=== PATIENT | female | born 1975 | race Caucasian/White ===

== ENCOUNTER 2016-07-17 11:47 | Inpatient (IN) | payer MEDICAID, OTHER ==
[~2016-07-17] VITALS: Ht 160 cm; Wt 64.4 kg
[~2016-07-17 11:47] MED LIST: BUSP5TAB3 PO; CLOZ100 PO; CYMB30CA PO; IMOD2TAB PO
--- NOTE | 2016-07-17 12:04 | PD ---
HPI Chief Complaint: psychiatric Time Seen by Provider: 11:59 Travel History International Travel<30 days: No Contact w/Intl Traveler<30days: No Traveled to known affect area: No History of Present Illness HPI 41-year-old female was Piper acted and brought in for psychiatric evaluation. Patient was threatened overdose on medications including Tylenol. Patient states that she did not overdose on Tylenol and just a threat. Patient states that she is hearing voices that are telling her to overdose on Tylenol. Patient denies any headache. Patient denies any chest pain or shortness of breath. Patient denies abdominal pain. Patient denies any focal weakness or numbness of extremity. Patient has history of schizoaffective disorder , Bipolar disorder, GERD, irritable bowel syndrome. PFSH Past Medical History Anemia: Yes Arthritis: No Asthma: No Autoimmune Disease: No Blood Disorders: No Bipolar Disorder: Yes Anxiety: Yes Depression: Yes Heart Rhythm Problems: No High Cholesterol: No Chemotherapy: No Chest Pain: No Congestive Heart Failure: No COPD: No Cerebrovascular Accident: No Diminished Hearing: No Endocrine: No GERD: Yes Genitourinary: No Hiatal Hernia: No Immune Disorder: No Implanted Vascular Access Dvce: No Musculoskeletal: No Neurologic: No Psychiatric: Yes (Schizoaffective Disorder, Bipolar Type) Reproductive: No Respiratory: No Immunizations Current: Yes Migraines: No Radiation Therapy: No Schizophrenia: Yes Sickle Cell Disease: No Sleep Apnea: No Thyroid Disease: No Ulcer: No Menopausal: No : 0 Para: 0 Miscarriage: 0 : 0 Past Surgical History Abdominal Surgery: No AICD: No Arteriovenous Shunt: No Cardiac Surgery: No Ear Surgery: No Endocrine Surgery: No Eye Surgery: No Genitourinary Surgery: No Gynecologic Surgery: No Insulin Pump: No Joint Replacement: No Neurologic Surgery: No Oral Surgery: No Pacemaker: No Thoracic Surgery: No Social History Alcohol Use: No Tobacco Use: Yes (< 1 PPD) Substance Use: No Allergies-Medications (Allergen,Severity, Reaction): Coded Allergies: No Known Allergies (Verified , 10/27/15) Reported Meds & Prescriptions Reported Meds & Active Scripts Active Reported Buspar (Buspirone HCl) 5 Mg Tab 10 Mg PO BID Cymbalta (Duloxetine HCl) 30 Mg Cap 90 Mg PO DAILY Loperamide Hcl (Loperamide HCl) 2 Mg Cap 4 Mg PO TID PRN TAKE AFTER EACH LOOSE STOOL; MAXIMUM OF 8 CAPS/DAY Clozaril 100 Mg Tab (Clozapine) 100 Mg Tab 400 Mg PO HS Review of Systems General / Constitutional: No: Fever Eyes: No: Visual changes HENT: No: Headaches Cardiovascular: No: Chest Pain or Discomfort Respiratory: No: Shortness of Breath Gastrointestinal: No: Abdominal Pain Genitourinary: No: Dysuria Musculoskeletal: No: Pain Skin: No Rash Neurologic: No: Weakness Psychiatric: No: Depression Endocrine: No: Polydipsia Hematologic/Lymphatic: No: Easy Bruising Physical Exam Narrative GENERAL: Well-nourished, well-developed patient. SKIN: Focused skin assessment warm/dry. HEAD: Normocephalic. EYES: No scleral icterus. No injection or drainage. NECK: Supple, trachea midline. No JVD or lymphadenopathy. CARDIOVASCULAR: Regular rate and rhythm without murmurs, gallops, or rubs. RESPIRATORY: Breath sounds equal bilaterally. No accessory muscle use. GASTROINTESTINAL: Abdomen soft, non-tender, nondistended. MUSCULOSKELETAL: No cyanosis, or edema. BACK: Nontender without obvious deformity. No CVA tenderness. Neurologic exam normal. Data Data Last Documented VS Vital Signs Date Time Temp Pulse Resp B/P Pulse Ox O2 Delivery O2 Flow Rate FiO2 07/17/16 12:10 98.0 102 16 125/85 100 Room Air Orders Complete Blood Count With Diff (07/17/16 11:59) Comprehensive Metabolic Panel (07/17/16 11:59) Urinalysis - C+S If Indicated (07/17/16 11:59) Psych Screen (07/17/16 11:59) Drug Screen, Random Urine (07/17/16 11:59) Salicylates (Aspirin) (07/17/16 11:59) Tylenol (Acetaminophen) (07/17/16 11:59) Labs Laboratory Tests Test 07/17/16 12:55 White Blood Count 6.0 TH/MM3 Red Blood Count 4.07 MIL/MM3 Hemoglobin 12.9 GM/DL Hematocrit 36.9 % Mean Corpuscular Volume 90.5 FL Mean Corpuscular Hemoglobin 31.8 PG Mean Corpuscular Hemoglobin 35.1 % Concent Red Cell Distribution Width 13.3 % Platelet Count 172 TH/MM3 Mean Platelet Volume 8.0 FL Neutrophils (%) (Auto) 81.4 % Lymphocytes (%) (Auto) 13.2 % Monocytes (%) (Auto) 5.3 % Eosinophils (%) (Auto) 0.0 % Basophils (%) (Auto) 0.1 % Neutrophils # (Auto) 4.9 TH/MM3 Lymphocytes # (Auto) 0.8 TH/MM3 Monocytes # (Auto) 0.3 TH/MM3 Eosinophils # (Auto) 0.0 TH/MM3 Basophils # (Auto) 0.0 TH/MM3 CBC Comment DIFF FINAL Differential Comment Urine Color LIGHT-YELLOW Urine Turbidity CLEAR Urine pH 5.5 Urine Specific [place] 1.005 Urine Protein NEG mg/dL Urine Glucose (UA) NEG mg/dL Urine Ketones NEG mg/dL Urine Occult Blood NEG Urine Nitrite NEG Urine Bilirubin NEG Urine Urobilinogen LESS THAN 2.0 MG/DL Urine Leukocyte Esterase NEG Urine RBC LESS THAN 1 /hpf Urine WBC 2 /hpf Urine Squamous Epithelial 1 /hpf Cells Urine Bacteria RARE /hpf Microscopic Urinalysis Comment CULT NOT INDICATED Sodium Level 142 MEQ/L Potassium Level 4.1 MEQ/L Chloride Level 108 MEQ/L Carbon Dioxide Level 27.5 MEQ/L Anion Gap 7 MEQ/L Blood Urea Nitrogen 10 MG/DL Creatinine 0.65 MG/DL Estimat Glomerular Filtration 100 ML/MIN Rate Random Glucose 89 MG/DL Calcium Level 8.9 MG/DL Total Bilirubin 0.5 MG/DL Aspartate Amino Transf 14 U/L (AST/SGOT) Alanine Aminotransferase 19 U/L (ALT/SGPT) Alkaline Phosphatase 94 U/L Total Protein 6.4 GM/DL Albumin 3.8 GM/DL Urine Opiates Screen NEG Acetaminophen Level LESS THAN 2.0 MCG/ML Urine Barbiturates Screen NEG Urine Amphetamines Screen NEG Urine Benzodiazepines Screen NEG Urine Cocaine Screen NEG Urine Cannabinoids Screen NEG MDM Medical Decision Making Medical Screen Exam Complete: Yes Emergency Medical Condition: Yes Interpretation(s) 1522 PM. CBC within normal limit. CMP within normal limits. Urine drug screen negative. Acetaminophen negative. UA is negative. Differential Diagnosis Differential diagnosis including schizoaffective disorder, bipolar disorder, psychosis. Narrative Course 41-year-old female was Piper acted and brought in for psychiatric evaluation. Patient states that she was hearing voices that tell her to overdose on Tylenol. Patient has history of schizoaffective disorder. Chema Carmona MD Jul 17, 2016 12:04
[2016-07-17 12:10] VITALS: BP 125/85; PULSE 102; RESP 16; TEMP 98; O2SAT 100
[2016-07-17 13:10] LABS: BACTERIA, URINE RARE /hpf; BLOOD, URINE NEG (NEG); COMMENT (UR) CULT NOT INDICATED; CULTURE IF INDICATED CULT NOT INDICATED; GLUCOSE,URINE NEG (NEG); KETONE, URINE NEG (NEG); NITRITE,URINE NEG (NEG); PH, URINE 5.5 (5.0-8.5); SQUAMOUS EPITHELIAL CELL URINE 1 /hpf (0-5); URINE COLOR LIGHT-YELLOW (YELLW/STRAW)
[2016-07-17 13:14] LABS: AUTOMATED NEUTROPHIL # 4.9 TH/MM3 (1.8-7.7); BASOPHIL % 0.1 % (0.0-2.0); HEMATOCRIT 36.9 % (35.0-46.0); HEMO FLAGS DIFF FINAL; LYMPH % 13.2 % (9.0-44.0); LYMPHOCYTE # 0.8 TH/MM3 (1.0-4.8); MEAN CELL VOLUME 90.5 FL (80.0-100.0); MEAN CORPUSCULAR HEMOGLOBIN 31.8 PG (27.0-34.0); MEAN CORPUSCULAR HGB CONC 35.1 % (32.0-36.0); MONO % 5.3 % (0.0-8.0); NEUT % 81.4 % (16.0-70.0); PLATELET COUNT 172 TH/MM3 (150-450); RED BLOOD COUNT 4.07 MIL/MM3 (4.00-5.30); RED CELL DISTRIBUTION WIDTH 13.3 % (11.6-17.2)
[2016-07-17 13:36] LABS: ALT (GPT) 19 U/L (10-53); ANION GAP 7 MEQ/L (5-15); AST (GOT) 14 U/L (15-37); BICARBONATE 27.5 MEQ/L (21.0-32.0); BLOOD UREA NITROGEN 10 MG/DL (7-18); CHLORIDE 108 MEQ/L (98-107); GLOMERULAR FILTRATION RATE 100 ML/MIN (>89); POTASSIUM 4.1 MEQ/L (3.5-5.1); SODIUM (NA) 142 MEQ/L (136-145)
[2016-07-17 13:38] LABS: ACETAMINOPHEN LESS THAN 2.0 MCG/ML (10.0-30.0); ALKALINE PHOSPHATASE 94 U/L (45-117); AMPHETAMINE, URINE NEG (NEG); BARBITURATES, URINE NEG (NEG); COCAINE, URINE NEG (NEG); TOTAL BILIRUBIN ADULT 0.5 MG/DL (0.2-1.0)
[2016-07-17] MEDS ORDERED: BUSP15TA PO (16:09)
[2016-07-17] MEDS ORDERED: CLOZ100 PO (16:09)
[2016-07-17] MEDS ORDERED: ANTI2CAP PO (16:09)
[2016-07-17 16:54] VITALS: BP 133/78; PULSE 104; RESP 20; TEMP 98.6; O2SAT 98
[2016-07-17 22:16] VITALS: BP 127/60; PULSE 90; RESP 18; O2SAT 100
[2016-07-18 02:00] VITALS: BP 118/75; PULSE 88; RESP 18; O2SAT 99
[2016-07-18 06:20] VITALS: BP 132/62; PULSE 110; RESP 18; O2SAT 99
[2016-07-18 10:40] VITALS: BP 112/57; PULSE 113; RESP 16; O2SAT 99
[2016-07-18 14:55] VITALS: BP 126/87; PULSE 112; RESP 18; O2SAT 100
[2016-07-18] MEDS ORDERED: MAGNESIUM HYDROXIDE SUSP 30 ML CUP PO PRN (15:30)
[2016-07-18] MEDS ORDERED: hydrOXYzine HCL 50 MG TAB PO PRN (15:30)
[2016-07-18] MEDS ORDERED: ALUMINUM/MAGNESIUM/SIMETH 30 ML CUP PO PRN (15:30)
[2016-07-18] MEDS ORDERED: LORazepam 2 MG/ML VIAL IM PRN ×2 (15:30)
[2016-07-18] MEDS ORDERED: ACETAMINOPHEN 325 MG TAB PO PRN (15:30)
[2016-07-18] MEDS ORDERED: LORazepam 1 MG TAB PO PRN (15:30)
[2016-07-18] MEDS ORDERED: LORazepam 0.5 MG TAB PO PRN (15:30)
--- NOTE | 2016-07-18 15:41 | HHI.HP ---
Provisional Diagnosis Admission Date [place] I. Schizoaffective disorder, bipolar type Certification of Person's Competence To Provide Express and Informed Consent I have personally examined Chelo Norman , a person being served at [facility] on, Jul 18, 2016 15:31. Express and informed consent means consent voluntarily given in writing, by a competent person, after sufficient explanation and disclosure of the subject matter involved to enable the person to make a knowing and willful decision without any element of force, fraud, deceit, duress, or other form of constraint or coercion. This person is 18 years of age or older, is not now known to be incompetent to consent to treatment with a guardian advocate, and does not have a health care surrogate or proxy currently making medical treatment decisions. I have found this person to be one of the following: [X] Competent to provide express and informed consent, as defined above, for voluntary admission to this facility and is competent to provide express and informed consent for treatment. He/she has the consistent capacity to make well reasoned, willful, and knowing decisions concerning his or her medical or mental health treatment. The person fully and consistently understands the purpose of the admission for examination/placement and is fully capable of personally exercising all rights assured [place] Incompetent to provide express and informed consent to voluntary admission, and this is incompetent to provide express and informed consent to treatment. The person must be transferred to involuntary status and a petition for a guardian advocate filed with the Circuit Court. [] Refusing to provide express and informed consent to voluntary admission but is competent to provide express and informed consent for treatment. The person must be discharged or transferred to involuntary status. Form shall be completed within 24 hours of a person's arrival at the receiving facility and filed in the clinical record of each person: 1. Admitted on a voluntary basis 2. Permitted to provide express and informed consent to his/her own treatment 3. Allowed to transfer from involuntary to voluntary status 4. Prior to permitting a person to consent to his or her own treatment after having been previously found incompetent to consent to treatment. History of Present Illness Capacity: Has Capacity HPI This is a 41-year-old female with a very long history of psychotic illness, primarily diagnosed with schizoaffective disorder, presenting to the emergency department under a Piper act. According to the Piper act, the patient is having auditory hallucinations of a command nature. These hallucinations are telling her to kill herself. In fact, they are directing her to buy Tylenol and she has done so. Unfortunately, in the past the patient has overdosed on Tylenol. The patient is extremely distraught about these command hallucinations and is asking this physician for medication to diminish her anxiety. She states she has been banging her head in order to attempt to stop the hallucinations but she is not successful. Patient has been admitted to [facility] on multiple occasions, generally with the same presentation of suicidality and auditory hallucinations. Additionally, as she has overdosed in the past, her lethality towards self is considered extremely high. Patient furthermore describes problems with depressed mood, anhedonia, social withdrawal , decreased energy, suicidal ideation, extreme anxiety, as well as command auditory hallucinations telling her to kill herself. She does not use alcohol or drugs. She has reportedly been compliant with her medications. Review of Systems ROS Limitations: Psychotic Except as stated in HPI: all other systems reviewed are Neg Past Psych History Psychological trauma history Denied for psychological traumas. However she does admit to multiple psychiatric hospitalizations at both [facility] and at [facility]. She would prefer to be hospitalized at [facility] at this time. Violence risk - others (6 mos) Minimal Violence risk - self (6 mos) High Substance Abuse History Drugs/Alcohol past 12 months Denied Past Family Social History Coded Allergies: No Known Allergies (Verified , 10/27/15) Reported Medications Loperamide (Anti-Diarrheal)2 Mg Cap2 Mg PO DIRECTED One capsule after each loose stool. Not to exceed 8 capsules per day. 07/17/16 Buspirone 15 Mg Tab15 Mg PO BID Ref 0 07/17/16 Clozapine (Clozaril)100 Mg [id number] Mg PO HS Ref 0 07/17/16 Current Medications Medications (Trade) Dose Ordered Sig/Cory Route Start Time Stop Time Status Last Admin (Buspar) 15 mg BID PO 07/18/16 21:00 UNV (Clozaril) 500 mg HS PO 07/18/16 21:00 UNV Family History Family history is positive for psychotic illness. Social History Patient is not currently employed. She does receive Social Security. She is usually treated as an outpatient at [facility]. She does not use alcohol or drugs. Patient's Strengths (min. 2) Verbal and resilient. Physical Exam GENERAL: SKIN: Warm and dry. HEAD: Normocephalic. EYES: No scleral icterus. No injection or drainage. NECK: Supple, trachea midline. No JVD or lymphadenopathy. CARDIOVASCULAR: Regular rate and rhythm without murmurs, gallops, or rubs. RESPIRATORY: Breath sounds equal bilaterally. No accessory muscle use. GASTROINTESTINAL: Abdomen soft, non-tender, nondistended. MUSCULOSKELETAL: No cyanosis, or edema. BACK: Nontender without obvious deformity. No CVA tenderness. Vital Signs Vital Signs Date Time Temp Pulse Resp B/P Pulse Ox O2 Delivery O2 Flow Rate FiO2 07/18/16 14:55 112 18 126/87 100 Room Air 07/17/16 16:54 98.6 Mental Status Examination Speech: Slow Orientation: x3 Memory: Unremarkable Thought Process: Organized, Goal Directed Thought Content: Paranoid Hallucination Type: Auditory Attention and Concentration: Abnormal Suicidal Ideation: Yes Previous Suicide Attempts: Yes Homicidal Ideation: No Previous Homicide Attempts: No Insight: Fair Judgment: Unrealistic Affect: Anxious Affect if Inappropriate: Flat Mood: Anxious Motor Activity: Normal gait Assessment & Plan Problem List: (1) Schizoaffective disorder, bipolar type ICD Code: F25.0 Assessment & Plan Estimated LOS: 5-7 days 41-year-old female with history of schizoaffective disorder, currently experiencing command auditory hallucinations to kill herself. Patient has a history of following these command hallucinations and overdosing on Tylenol. She has already bought Tylenol yesterday but is trying to resist the hallucinations. She is considered at very high risk for self- harm. This physician is ordering a CBC to determine her blood counts due to the fact that she takes Clozaril. Also ordered is an EKG to determine cardiac conduction before possibly placing her on a second or different antipsychotic medication which could affect her heart rhythms. She is being checked for vitamin B-12 and vitamin D because she does not necessarily eat right or go outside. Her lipids are also being checked as Clozaril can lead to metabolic problems. The hospitalist are being consulted because the patient has a history of uncontrolled diarrhea. This physician spoke with the patient's nurse about her recent and current behavior and learned the patient is quite dangerous to self. Finally, this physician last the can pusher to call patient' s family members for support and further information. Jose Hardy MD Jul 18, 2016 15:41
[2016-07-18 17:05] VITALS: BP 139/82; PULSE 106; RESP 18; TEMP 98; O2SAT 99
[2016-07-18] MEDS: busPIRone HCL 5 MG TAB PO SCH (21:49)
[2016-07-18] MEDS: cloZAPine 100 MG TAB PO SCH (21:50)
[2016-07-19 06:07] VITALS: BP 98/62; PULSE 81; RESP 16; TEMP 98.1; O2SAT 97
--- NOTE | 2016-07-19 07:14 | EKG ---
Date Performed: 07/18/2016 Time Performed: 18:00:38 PTAGE: 41 years EKG: Sinus rhythm NORMAL ECG NO SIGNIFICANT CHANGE FROM PRIOR ELECTROCARDIOGRAM. PREVIOUS TRACING : 04/28/2012 15.40 DOCTOR: Joao Regalado Interpretating Date/Time 07/19/2016 07:12:49
[2016-07-19] MEDS: busPIRone HCL 5 MG TAB PO SCH (08:58)
[2016-07-19 11:33] LABS: AUTOMATED NEUTROPHIL # 4.3 TH/MM3 (1.8-7.7); BASOPHIL % 0.1 % (0.0-2.0); HEMO FLAGS DIFF FINAL; LYMPH % 18.2 % (9.0-44.0); LYMPHOCYTE # 1.1 TH/MM3 (1.0-4.8); MEAN CELL VOLUME 90.8 FL (80.0-100.0); MEAN CORPUSCULAR HEMOGLOBIN 31.9 PG (27.0-34.0); MEAN CORPUSCULAR HGB CONC 35.1 % (32.0-36.0); MONO % 6.6 % (0.0-8.0); NEUT % 75.1 % (16.0-70.0); PLATELET COUNT 173 TH/MM3 (150-450); RED BLOOD COUNT 4.19 MIL/MM3 (4.00-5.30); RED CELL DISTRIBUTION WIDTH 13.5 % (11.6-17.2); WHITE BLOOD COUNT 5.8 TH/MM3 (4.0-11.0)
[2016-07-19 11:54] LABS: ALT (GPT) 19 U/L (10-53); ANION GAP 6 MEQ/L (5-15); AST (GOT) 11 U/L (15-37); BICARBONATE 28.2 MEQ/L (21.0-32.0); BLOOD UREA NITROGEN 14 MG/DL (7-18); CHLORIDE 106 MEQ/L (98-107); GLOMERULAR FILTRATION RATE 85 ML/MIN (>89); POTASSIUM 4.3 MEQ/L (3.5-5.1); SODIUM (NA) 140 MEQ/L (136-145)
[2016-07-19 12:20] LABS: ALKALINE PHOSPHATASE 94 U/L (45-117); HDL CHOLESTEROL 53.9 MG/DL (40.0-60.0); LDL CHOLESTEROL 124 MG/DL (0-99); TOTAL BILIRUBIN ADULT 0.5 MG/DL (0.2-1.0)
--- NOTE | 2016-07-19 12:29 | HHI.PYPN ---
Subjective Remarks Patient seen and examined with counselor. Chart reviewed. Case discussed with nursing staff. On my examination today, the patient reports that she has been hearing command auditory hallucinations to kill herself for the last 3 days without clear stressor. She denies suicidal ideation and says that if she develops any desire to hurt herself on the unit she will go to staff. She follows with the FACT team. Mood is somewhat depressed. Some cluster B personality traits noted. Slept well overnight. Patient reports that in addition to the clozapine and buspirone that she is currently prescribed, she also receives Risperdal Consta injections and thinks that she got the last dose about a week ago. Patient would like to titrate her dose of Risperdal Consta but is unsure of her current dose. No side effects from medications besides some sialorrhea with clozapine. No physical complaints. Spoke with patient's outpatient psychiatrist, Dr. Amaya. He notes that the patient had been enjoying her longest period of stability until this past weekend, ~ 9 months. Stressor for decompensation may have been that her psychotherapist left the practice last week. Patient also told Dr. Thomas that she had given some advice to a friend over the weekend, and friend acted on this advice with bad results, and patient reportedly felt very guilty about this. He notes patient has borderline personality features and has done well with DBT in the past. Current medications are Consta 50mg IM, clozapine 500mg qHS, and Trintellix 20mg/day. Review of Systems ROS Limitations: Psychotic, Poor Historian Except as stated in HPI: all other systems reviewed are Neg Objective Alert: Yes Wallback: Person, Place (at least) Mood: Depressed Affect: Blunted Memory Intact: Comment (seems fair on clinical exam) Hallucinations: Auditory (command auditory hallucinations to hurt self) Delusions: No Delusion Type: Other (no delusions) Suicidal: Ideation (denies any suicidal plan or intent in response to CAH) Homicidal: Ideation (no HI) Insight/Judgment Fair to poor Remarks No motor abnormalities noted. Thought process linear. Speech somewhat slow. Grooming and hygiene fair. Labs Test 07/19/16 10:57 White Blood Count 5.8 TH/MM3 Red Blood Count 4.19 MIL/MM3 Hemoglobin 13.4 GM/DL Hematocrit 38.0 % Mean Corpuscular Volume 90.8 FL Mean Corpuscular Hemoglobin 31.9 PG Mean Corpuscular Hemoglobin 35.1 % Concent Red Cell Distribution Width 13.5 % Platelet Count 173 TH/MM3 Mean Platelet Volume 8.3 FL Neutrophils (%) (Auto) 75.1 % Lymphocytes (%) (Auto) 18.2 % Monocytes (%) (Auto) 6.6 % Eosinophils (%) (Auto) 0.0 % Basophils (%) (Auto) 0.1 % Neutrophils # (Auto) 4.3 TH/MM3 Lymphocytes # (Auto) 1.1 TH/MM3 Monocytes # (Auto) 0.4 TH/MM3 Eosinophils # (Auto) 0.0 TH/MM3 Basophils # (Auto) 0.0 TH/MM3 CBC Comment DIFF FINAL Differential Comment Sodium Level 140 MEQ/L Potassium Level 4.3 MEQ/L Chloride Level 106 MEQ/L Carbon Dioxide Level 28.2 MEQ/L Anion Gap 6 MEQ/L Blood Urea Nitrogen 14 MG/DL Creatinine 0.75 MG/DL Estimat Glomerular Filtration 85 ML/MIN Rate Random Glucose 93 MG/DL Calcium Level 9.1 MG/DL Total Bilirubin 0.5 MG/DL Aspartate Amino Transf 11 U/L (AST/SGOT) Alanine Aminotransferase 19 U/L (ALT/SGPT) Alkaline Phosphatase 94 U/L Total Protein 6.3 GM/DL Albumin 3.7 GM/DL Triglycerides Level 94 MG/DL Cholesterol Level 197 MG/DL LDL Cholesterol 124 MG/DL HDL Cholesterol 53.9 MG/DL Cholesterol/HDL Ratio 3.65 RATIO Vitamin B12 Level 741 PG/ML Thyroid Stimulating Hormone 0.910 uIU/ML 3rd Gen Labs reviewed. ANC is adequate for clozapine therapy. Low vitamin D level noted. EKG reveals sinus rhythm with a QTC of 427 ms. Vitals/IOs Vital Signs Date Time Temp Pulse Resp B/P Pulse Ox O2 Delivery O2 Flow Rate FiO2 07/19/16 06:07 98.1 81 16 98/62 97 07/18/16 14:55 Room Air Intake and Output 07/18/16 07/18/16 07/19/16 08:00 16:00 00:00 Intake Total 240 ml Balance 240 ml Assessment & Plan Problem List: (1) Schizoaffective disorder, bipolar type ICD Code: F25.0 Assessment & Plan Check a beta hCG. Continue Clozaril as ordered. Check clozapine level in morning; could consider adjusting dose based on level. Patient is already on robust dose of Consta, and it seems less likely that additional Risperdal would be of much therapeutic benefit. D/c BuSpar as this is not part of patient's outpatient regimen per Dr. Dorita COATES CM to bring in Trintellix, which is not stocked in our pharmacy. Continue to monitor on inpatient unit. Continue other medications and care as ordered. Justification for Cont. Inpt. Impairment in safety. Impairment in reality construction. High risk for decompensation in a less restrictive environment. Discharge Planning Pending psychiatric stabilization Request HC Surrog/Guard Advoc?: No José Shukla MD Jul 19, 2016 12:29
[2016-07-19] MEDS ORDERED: LOPERAMIDE HCL 2 MG CAP PO PRN (13:15)
--- NOTE | 2016-07-19 13:18 | PD.CONS ---
HPI Service [facility] Consult Requested By Dr. Hardy Reason for Consult Diarrhea Primary Care Physician Nico Almanza MD Diagnoses: History of Present Illness Written by DESMOND Maldonado acting as scribe for [Opal] on 07/19/16 at 12: 15. 41 y/o with a history of IBS and schizoaffective disorder was brought to the hospital as a medellin act with complaints of auditory hallucinations, and suicidal thoughts. The medical team was consulted for history of diarrhea. Patient states her diarrhea varies from day to day and she takes Imodium for relief. She denies any chest pain, sob, fever or chills. Review of Systems Constitutional: DENIES: Fever, Chills Respiratory: DENIES: Cough, Shortness of breath Cardiovascular: DENIES: Chest pain, Lower Extremity Edema Gastrointestinal: COMPLAINS OF: Diarrhea, DENIES: Nausea, Vomiting Genitourinary: DENIES: Hematuria, Dysuria Musculoskeletal: DENIES: Back pain, Neck pain Immunologic/allergic: DENIES: Urticaria Neurologic: DENIES: Headache Past Family Social History Allergies: Coded Allergies: No Known Allergies (Verified , 10/27/15) Past Medical History Schizoaffective disorder IBS Past Surgical History Left eye surgery for a lazy eye as a child Reported Medications Reported Meds & Active Scripts Active Reported Anti-Diarrheal (Loperamide HCl) 2 Mg Cap 2 Mg PO DIRECTED One capsule after each loose stool. Not to exceed 8 capsules per day. Buspirone (Buspirone HCl) 15 Mg Tab 15 Mg PO BID Clozaril (Clozapine) 100 Mg Tab 500 Mg PO HS Active Ordered Medications Current Medications Medications (Trade) Dose Ordered Sig/Cory Route Start Time Stop Time Status Last Admin (Buspar) 15 mg BID PO 07/18/16 21:00 07/19/16 08:58 (Clozaril) 500 mg HS PO 07/18/16 21:00 07/18/16 21:50 (Ativan) 1 mg Q6H PRN PO 07/18/16 15:30 07/18/16 16:42 (Ativan Inj) 1 mg Q6H PRN IM 07/18/16 15:30 (Tylenol) 650 mg Q4H PRN PO 07/18/16 15:30 (Milk Of Magnesia Liq) 30 ml DAILY PRN PO 07/18/16 15:30 (Mag-Al Plus Susp Liq) 30 ml Q6H PRN PO 07/18/16 15:30 (Atarax) 50 mg Q6H PRN PO 07/18/16 15:30 Family History Patient is unsure of family history Social History Tobacco use: 1 PPD Alcohol use: Denies Illicit drug use: Denies Physical Exam Vital Signs Vital Signs Date Time Temp Pulse Resp B/P Pulse Ox O2 Delivery O2 Flow Rate FiO2 07/19/16 06:07 98.1 81 16 98/62 97 07/18/16 17:05 98.0 106 18 139/82 99 07/18/16 14:55 112 18 126/87 100 Room Air Physical Exam GENERAL: This is a well-nourished, in no apparent distress. SKIN: No rashes, ecchymoses or lesions. Cool and dry. HEAD: Atraumatic. Normocephalic. EYES: Pupils equal round and reactive. Extraocular motions intact. NECK: Trachea midline. No JVD or lymphadenopathy. CARDIOVASCULAR: Regular rate and rhythm without murmurs, gallops, or rubs. RESPIRATORY: Clear to auscultation. Breath sounds equal bilaterally. No wheezes , rales, or rhonchi. GASTROINTESTINAL: Abdomen soft, non-tender, nondistended. No hepato-splenomegaly , or palpable masses. MUSCULOSKELETAL: Extremities without clubbing, cyanosis, or edema. No joint tenderness, effusion, or edema noted NEUROLOGICAL: Awake and alert. Motor and sensory grossly within normal limits. Normal speech. Laboratory Laboratory Tests Test 07/19/16 10:57 White Blood Count 5.8 Red Blood Count 4.19 Hemoglobin 13.4 Hematocrit 38.0 Mean Corpuscular Volume 90.8 Mean Corpuscular Hemoglobin 31.9 Mean Corpuscular Hemoglobin 35.1 Concent Red Cell Distribution Width 13.5 Platelet Count 173 Mean Platelet Volume 8.3 Neutrophils (%) (Auto) 75.1 Lymphocytes (%) (Auto) 18.2 Monocytes (%) (Auto) 6.6 Eosinophils (%) (Auto) 0.0 Basophils (%) (Auto) 0.1 Neutrophils # (Auto) 4.3 Lymphocytes # (Auto) 1.1 Monocytes # (Auto) 0.4 Eosinophils # (Auto) 0.0 Basophils # (Auto) 0.0 CBC Comment DIFF FINAL Differential Comment Sodium Level 140 Potassium Level 4.3 Chloride Level 106 Carbon Dioxide Level 28.2 Anion Gap 6 Blood Urea Nitrogen 14 Creatinine 0.75 Estimat Glomerular Filtration 85 Rate Random Glucose 93 Calcium Level 9.1 Total Bilirubin 0.5 Aspartate Amino Transf 11 (AST/SGOT) Alanine Aminotransferase 19 (ALT/SGPT) Alkaline Phosphatase 94 Total Protein 6.3 Albumin 3.7 Triglycerides Level 94 Cholesterol Level 197 LDL Cholesterol 124 HDL Cholesterol 53.9 Cholesterol/HDL Ratio 3.65 Vitamin B12 Level 741 25-Hydroxy Vitamin D Total 18.8 Thyroid Stimulating Hormone 0.910 3rd Gen Result Diagram: 07/19/16 1057 07/19/16 1057 Assessment and Plan Problem List: (1) Schizoaffective disorder, bipolar type ICD Code: F25.0 Status: Acute (2) IBS (irritable bowel syndrome) ICD Code: K58.9 Status: Acute Assessment and Plan 41 y/o with a history of IBS and schizoaffective disorder was brought to the hospital as a medellin act with complaints of auditory hallucinations, and suicidal thoughts. The medical team was consulted for history of diarrhea. Schizoaffective disorder -Managed by psychiatry Irritable bowel syndrome -Restart home medication Imodium DVT prophylaxis: Low risk. Encourage ambulation This note was transcribed by scribe [Samia Spencer]. I, Dr. Hesham Joseph personally performed the history, physical exam, and medical decision making; and confirmed the accuracy of the information in the transcribed note. Authenticated by Dr. Hesham Joseph on 07/19/16 at 1220. Discussed Condition With Per psych Problem Qualifiers (1) IBS (irritable bowel syndrome): Qualified Code: K58.0 - Irritable bowel syndrome with diarrhea Samia Spencer Jul 19, 2016 13:18 Hesham Joseph MD Jul 19, 2016 17:56
[2016-07-19 15:58] LABS: HEMOGLOBIN A1a 1.1 %; HEMOGLOBIN A1b 1.1 %; HEMOGLOBIN Ao 87.8 %; HEMOGLOBIN LA1C 1.9 %; HEMOGLOBIN P3 3.2 %
[2016-07-19 17:59] VITALS: BP 103/56; PULSE 95; RESP 17; TEMP 98.2; O2SAT 98
[2016-07-19] MEDS: cloZAPine 100 MG TAB PO SCH (20:44)
[2016-07-20 05:22] VITALS: BP 106/51; PULSE 61; RESP 16; TEMP 98.3; O2SAT 98
[2016-07-20] MEDS: CHOLECALCIFEROL (VIT D3) 1000 UNIT TAB PO SCH (08:28)
--- NOTE | 2016-07-20 15:55 | HHI.PYPN ---
Subjective Remarks Patient seen and examined with nurse. Chart reviewed. Case discussed with nursing staff. Patient's outpatient nurse visited today and provided us with her Trintellix. She also has the most up-to-date med list, and I do see this contains BuSpar 20mg BID. On my examination today, patient presents as somewhat anxious and needy. Cluster B personality traits remain. She endorses ongoing CAH to self-injure but denies any active SI. She does complain of anxiety, and we discuss strategies to manage this and settle on resuming and titrating her BuSpar. She also would like to try to divide the dosing of her clozapine and not take it all at HS. denies side effects from medications. No physical complaints. Review of Systems ROS Limitations: Poor Historian Except as stated in HPI: all other systems reviewed are Neg Objective Alert: Yes [place]: Person, Place, Situation Mood: Anxious (and depressed) Affect: Blunted (tending towards flat) Memory Intact: Comment (seems fair on clinical exam) Hallucinations: Auditory (ongoing command auditory hallucinations to hurt self) Delusions: No Delusion Type: Other (no delusional material) Suicidal: Ideation (denies suicidal ideation) Homicidal: Ideation (no homicidal ideation) Insight/Judgment Remains fair to poor Remarks No motor abnormalities noted, although patient does have dysconjugate gaze which is chronic. Speech within normal limits for rate, tone and volume. Grooming and hygiene fair. Labs Labs reviewed. Clozapine level pending. Vitals/IOs Vital Signs Date Time Temp Pulse Resp B/P Pulse Ox O2 Delivery O2 Flow Rate FiO2 07/20/16 05:22 98.3 61 16 106/51 98 07/18/16 14:55 Room Air Intake and Output 07/19/16 07/19/16 07/20/16 08:00 16:00 00:00 Intake Total 480 ml 240 ml Balance 480 ml 240 ml Assessment & Plan Problem List: (1) Schizoaffective disorder, bipolar type Assessment & Plan: Also, Cluster B personality traits. ICD Code: F25.0 Assessment & Plan Resume Trintellix 20mg daily. Titrate BuSpar to 20mg TID to target anxiety. Adjust clozapine dosing to 100/400mg. Await clozapine level. Continue to monitor on the inpatient unit. Hospitalist input noted and appreciated. Continue other medications and care as ordered. Justification for Cont. Inpt. Medication adjustments. Impairment in reality construction. Monitoring for impairments in safety, so far none. Risk for decompensation pending psychiatric stabilization. Discharge Planning Pending psychiatric stabilization. Request HC Surrog/Guard Advoc?: No José Shukla MD Jul 20, 2016 15:55
[2016-07-20 16:04] VITALS: BP 114/82; PULSE 102; RESP 18; TEMP 98.9; O2SAT 99
[2016-07-20] MEDS: busPIRone HCL 10 MG TAB PO SCH ×2 (16:33→21:19)
[2016-07-20] MEDS: NICOTINE 21 MG/24 HR PATCH T-DERMAL SCH (16:34)
[2016-07-20] MEDS: REMOVE OLD PATCH T-DERMAL SCH (16:35)
[2016-07-20] MEDS: cloZAPine 100 MG TAB PO SCH (21:20)
[2016-07-21 06:31] VITALS: BP 98/60; PULSE 76; RESP 16; TEMP 97.6; O2SAT 96
[2016-07-21] MEDS: VORTIOXETINE 20 MG PO SCH (08:59)
[2016-07-21] MEDS: CHOLECALCIFEROL (VIT D3) 1000 UNIT TAB PO SCH (09:00)
[2016-07-21] MEDS: busPIRone HCL 10 MG TAB PO SCH ×3 (09:00→21:17)
[2016-07-21] MEDS ORDERED: VORTIOXETINE 20 MG PO SCH (09:00)
[2016-07-21] MEDS: cloZAPine 100 MG TAB PO SCH ×2 (09:00→21:17)
[2016-07-21] MEDS: NICOTINE 21 MG/24 HR PATCH T-DERMAL SCH (09:01)
--- NOTE | 2016-07-21 11:30 | HHI.PYPN ---
Subjective Remarks Patient seen and examined with counselor and nurse. Chart reviewed. Case discussed with nursing staff who reports that the patient slept well. On my examination today, the patient reports that her anxiety is significantly decreased today. Auditory hallucinations are now reported to be intermittent. The patient denies any suicidal or homicidal ideation. Affect is brighter. Patient has been working with counselor in one-to-one therapy. Denies side effects from medication adjustments. Reports that her Risperdal Consta is due on Sunday. No physical complaints. Review of Systems Except as stated in HPI: all other systems reviewed are Neg Objective Alert: Yes [place]: Person, Place, Situation Mood: Anxious (lessened), Depressed (improved) Affect: Blunted (more reactive today) Memory Intact: Comment (fair) Hallucinations: Auditory (lessening CAH) Delusions: No Delusion Type: Other (no delusions) Suicidal: Ideation (denies SI) Homicidal: Ideation (denies HI) Insight/Judgment Fair Remarks No new motor abnormalities noted. Thought process linear. Grooming and hygiene fair. Labs Labs reviewed. Vitals/IOs Vital Signs Date Time Temp Pulse Resp B/P Pulse Ox O2 Delivery O2 Flow Rate FiO2 07/21/16 06:31 97.6 76 16 98/60 96 07/18/16 14:55 Room Air Assessment & Plan Problem List: (1) Schizoaffective disorder, bipolar type Assessment & Plan: With comorbid borderline personality traits. ICD Code: F25.0 Assessment & Plan Continue increased dose of BuSpar as ordered. Continue clozapine 100/400 mg. Awaiting clozapine level. Continue other psychotropics as ordered. I will go ahead and order patient's Risperdal Consta for Sunday. Continue to monitor on the inpatient unit. Continue other medications care as ordered. Justification for Cont. Inpt. Impairment in reality construction, resolving CAH. Monitoring for impairments in safety, so far none. Discharge Planning If the patient continues to improve, anticipate discharge beginning of next week. Request HC Surrog/Guard Advoc?: No José Shukla MD Jul 21, 2016 11:30
[2016-07-21 19:21] VITALS: TEMP 97.2
[2016-07-21 19:24] VITALS: BP 125/71; PULSE 100; RESP 16; TEMP 97.2; O2SAT 99
[2016-07-22 06:19] VITALS: BP 99/62; PULSE 85; RESP 16; TEMP 97.5; O2SAT 97
[2016-07-22 07:00] LABS: CLOZAPINE/NORCLOZAPINE TOTAL 956 ng/mL (>450); NORCLOZAPINE 320 ng/mL (())
[2016-07-22] MEDS: REMOVE OLD PATCH T-DERMAL SCH (09:00)
[2016-07-22] MEDS: cloZAPine 100 MG TAB PO SCH ×2 (09:14→20:17)
[2016-07-22] MEDS: busPIRone HCL 10 MG TAB PO SCH ×3 (09:14→20:17)
[2016-07-22] MEDS: CHOLECALCIFEROL (VIT D3) 1000 UNIT TAB PO SCH (09:14)
[2016-07-22] MEDS: VORTIOXETINE 20 MG PO SCH (09:15)
[2016-07-22] MEDS: NICOTINE 21 MG/24 HR PATCH T-DERMAL SCH (09:15)
--- NOTE | 2016-07-22 14:30 | HHI.PYPN ---
Subjective Remarks Patient was seen and case discussed with nursing. Patient is pleasant and cooperative with exam. Patient says that auditory hallucinations have completely resolved having last heard them last night. No delusions elicited. Denies suicidal ideation intent or plan. Nursing has not noticed any internal preoccupation. Compliant with her medications and tolerating them well Objective Alert: Yes [place]: Person, Place, Situation Mood: Anxious (lessened) Affect: Restricted Memory Intact: Comment (fair) Hallucinations: Auditory (denies) Delusions: No Delusion Type: Other (no delusions) Suicidal: Ideation (denies SI) Homicidal: Ideation (denies HI) Insight/Judgment Improving Vitals/IOs Vital Signs Date Time Temp Pulse Resp B/P Pulse Ox O2 Delivery O2 Flow Rate FiO2 07/22/16 06:19 97.5 85 16 99/62 97 07/18/16 14:55 Room Air Intake and Output 07/21/16 07/21/16 07/22/16 08:00 16:00 00:00 Intake Total 480 ml Balance 480 ml Assessment & Plan Problem List: (1) Schizoaffective disorder, bipolar type ICD Code: F25.0 Assessment & Plan Continue current treatment plan Justification for Cont. Inpt. Patient will decompensate in a less restrictive setting Request HC Surrog/Guard Advoc?: No He Abrams DO Jul 22, 2016 14:30
--- NOTE | 2016-07-22 14:33 | HHI.PR ---
Subjective Remarks Follow-up visit IBS, diarrhea. Patient seen and examined today. Reports she is feeling a lot better today. She denies any increased diarrhea. Compliant with medications. Denies pain and discomfort. Denies SOB/ dyspnea. Denies chest pain, palpitations, headaches, dizziness. Denies fevers, chills, n/v. Denies hematuria, dysuria. Objective Vitals Vital Signs Date Time Temp Pulse Resp B/P Pulse Ox O2 Delivery O2 Flow Rate FiO2 07/22/16 06:19 97.5 85 16 99/62 97 07/21/16 19:24 97.2 100 16 125/71 99 07/21/16 19:21 97.2 I/O 07/21/16 07/21/16 07/21/16 07/22/16 07/22/16 07/22/16 07:00 15:00 23:00 07:00 15:00 23:00 Intake Total 480 ml Balance 480 ml Intake Oral 480 ml Result Diagram: 07/19/16 1057 07/19/16 1057 Objective Remarks GENERAL: This is a well-nourished, well-developed patient, in no apparent distress. SKIN: Warm and dry. HEENT: Normocephalic. Pupils equal round and reactive. Nose without bleeding. Airway patent. NECK: Trachea midline. No JVD. Supple. CARDIOVASCULAR: Regular rate and rhythm without murmurs, gallops, or rubs. RESPIRATORY: Clear to auscultation. Breath sounds equal bilaterally. No wheezes , rales, or rhonchi. GASTROINTESTINAL: Abdomen soft, non-tender, nondistended. Bowel Sounds normoactive x4. : Voiding without difficulty. MUSCULOSKELETAL: Extremities without clubbing, cyanosis, or edema. NEUROLOGICAL: Awake and alert. Oriented to time, place, person. No focal neuro deficit. Moves all extremities. Normal speech. A/P Problem List: (1) Schizoaffective disorder, bipolar type ICD Code: F25.0 Status: Acute (2) IBS (irritable bowel syndrome) ICD Code: K58.9 Status: Acute Assessment and Plan 41 y/o with a history of IBS and schizoaffective disorder was brought to the hospital as a medellin act with complaints of auditory hallucinations, and suicidal thoughts. The medical team was consulted for history of diarrhea. Schizoaffective disorder - Managed by psychiatry Irritable bowel syndrome - Restarted on Imodium - Feeling better Labs reviewed unremarkable CBC vitamin D insufficiency - vitamin D supplementation Elevated LDL - lifestyle changes to continue. Monitor as an outpatient by PCP DVT prophylaxis: Low risk. Encourage ambulate Discussed with patient, nursing Stable from Hospitalist standpoint. We will sign off. Reconsult as needed. Problem Qualifiers (1) IBS (irritable bowel syndrome): Qualified Code: K58.0 - Irritable bowel syndrome with diarrhea Emily Benavides [facility] Jul 22, 2016 14:32
[2016-07-22 18:00] VITALS: BP 110/74; PULSE 88; RESP 16; TEMP 98; O2SAT 100
[2016-07-23 05:49] VITALS: BP 95/57; PULSE 72; RESP 18; TEMP 98.2; O2SAT 98
[2016-07-23] MEDS: VORTIOXETINE 20 MG PO SCH (08:38)
[2016-07-23] MEDS: cloZAPine 100 MG TAB PO SCH ×2 (08:39→20:29)
[2016-07-23] MEDS: REMOVE OLD PATCH T-DERMAL SCH (08:39)
[2016-07-23] MEDS: busPIRone HCL 10 MG TAB PO SCH ×3 (08:39→20:29)
[2016-07-23] MEDS: NICOTINE 21 MG/24 HR PATCH T-DERMAL SCH (08:39)
[2016-07-23] MEDS: CHOLECALCIFEROL (VIT D3) 1000 UNIT TAB PO SCH (08:39)
--- NOTE | 2016-07-23 14:38 | HHI.PYPN ---
Subjective Remarks Patient was seen and case discussed with nursing. Patient continues to improve. She says the auditory hallucinations are resolved. No delusions elicited. She is compliant with her medications and doing well on the unit. Denies suicidal ideation intent or plan Objective Alert: Yes [place]: Person, Place, Situation Mood: Calm Affect: Restricted Memory Intact: Comment (fair) Hallucinations: Auditory (denies) Delusions: No Delusion Type: Other (no delusions) Suicidal: Ideation (denies SI) Homicidal: Ideation (denies HI) Insight/Judgment Poor Vitals/IOs Vital Signs Date Time Temp Pulse Resp B/P Pulse Ox O2 Delivery O2 Flow Rate FiO2 07/23/16 05:49 98.2 72 18 95/57 98 Assessment & Plan Problem List: (1) Schizoaffective disorder, bipolar type ICD Code: F25.0 Assessment & Plan Continue current treatment plan Justification for Cont. Inpt. Patient will decompensate in a less restrictive setting Request HC Surrog/Guard Advoc?: No He Abrams DO Jul 23, 2016 14:38
[2016-07-23 15:42] VITALS: BP 109/75; PULSE 94; RESP 18; TEMP 98.4; O2SAT 99
[2016-07-24 05:37] VITALS: BP 100/61; PULSE 82; RESP 18; TEMP 98.3; O2SAT 96
[2016-07-24] MEDS: busPIRone HCL 10 MG TAB PO SCH ×2 (09:34→15:18)
[2016-07-24] MEDS: CHOLECALCIFEROL (VIT D3) 1000 UNIT TAB PO SCH (09:34)
[2016-07-24] MEDS: cloZAPine 100 MG TAB PO SCH (09:35)
[2016-07-24] MEDS: REMOVE OLD PATCH T-DERMAL SCH (09:36)
[2016-07-24] MEDS: NICOTINE 21 MG/24 HR PATCH T-DERMAL SCH (09:36)
[2016-07-24] MEDS: VORTIOXETINE 20 MG PO SCH (09:37)
[2016-07-24] MEDS ORDERED: VITA1000 PO (10:28)
[2016-07-24] MEDS ORDERED: BUSP10TA PO (10:28)
[2016-07-24] MEDS ORDERED: CLOZ100 PO ×2 (10:28)
[2016-07-24] MEDS ORDERED: Patient Own Medication PO (10:28)
[2016-07-24] MEDS ORDERED: RISP50P IM (10:28)
--- NOTE | 2016-07-24 10:28 | HHI.DS ---
Psychiatry Discharge Summary Inpatient Psychiatric care?: Yes Advance Directive: No Reason Not Provided: pt refused Mental Health AdvanceDirective: No Health Care Proxy: No Admission Admission Date Jul 18, 2016 at 15:30 Admission Diagnosis: (1) Schizoaffective disorder, bipolar type ICD Code: F25.0 Brief History This is a 41-year-old female with a very long history of psychotic illness, primarily diagnosed with schizoaffective disorder, presenting to the emergency department under a Piper act. According to the Piper act, the patient is having auditory hallucinations of a command nature. These hallucinations are telling her to kill herself. In fact, they are directing her to buy Tylenol and she has done so. Unfortunately, in the past the patient has overdosed on Tylenol. The patient is extremely distraught about these command hallucinations and is asking this physician for medication to diminish her anxiety. She states she has been banging her head in order to attempt to stop the hallucinations but she is not successful. Patient has been admitted to [facility] on multiple occasions, generally with the same presentation of suicidality and auditory hallucinations. Additionally, as she has overdosed in the past, her lethality towards self is considered extremely high. Patient furthermore describes problems with depressed mood, anhedonia, social withdrawal , decreased energy, suicidal ideation, extreme anxiety, as well as command auditory hallucinations telling her to kill herself. She does not use alcohol or drugs. She has reportedly been compliant with her medications. Tobacco Use In Past 30 Days: 5 or More Cigarettes/Day Alcohol Use: Never Hospital Course Patient was admitted to a locked, inpatient psychiatric unit. A general medical consultation was obtained. Appropriate precautions were in place throughout patient's hospital stay. Patient was seen and examined daily on the unit by psychiatry and also visited by counselor. Medications were adjusted. Patient's BuSpar was titrated to target anxiety and her clozapine dosing was adjusted. Clozapine level was obtained and was above the therapeutic threshold. She was administered Risperdal Consta on the day of discharge as it was due on this day. There was no evidence of any suicidality or homicidality on the inpatient unit. Patient remained in good behavioral control and was medication compliant. On the day of discharge: Patient seen and examined with counselor. Chart reviewed. Case discussed with nursing staff. Patient has been no behavioral problem on the unit per nurse. On my examination today, the patient is in good spirits. She reports that she has had no audiovisual hallucinations since Sunday evening. She denies audiovisual hallucinations now and in particular denies command auditory hallucinations. She denies any suicidal or homicidal ideation, intent or plan. No issues with mood. No depressive or hypomanic or manic symptoms noted. No delusional beliefs. She denies side effects from medications. No physical complaints. She is agreeable to following up on an outpatient basis. Weighing the acute, chronic, and protective factors and based on the available evidence, I relaster to a reasonable degree of medical certainty that the patient is at low imminent risk of harm to self or others from a mental illness as defined under the Piper act and her level of function is adequate for outpatient care. Patient has maximized benefit from this inpatient psychiatric hospital stay. She will be discharged today with psychiatric follow-up as arranged by counselor. Patient is also to follow-up with primary care. I have counseled the patient regarding warning signs for need to return to the psychiatric emergency room as part of the general safety plan. Results Blood Pressure 100 / 61 Vital Signs Date Time Temp Pulse Resp B/P Pulse Ox O2 Delivery O2 Flow Rate FiO2 07/24/16 05:37 98.3 82 18 100/61 96 Item Value Date Time White Blood Count 5.8 TH/MM3 07/19/16 1057 Hemoglobin 13.4 GM/DL 07/19/16 1057 Platelet Count 173 TH/MM3 07/19/16 1057 Sodium Level 140 MEQ/L 07/19/16 1057 Potassium Level 4.3 MEQ/L 07/19/16 1057 Chloride Level 106 MEQ/L 07/19/16 1057 Carbon Dioxide Level 28.2 MEQ/L 07/19/16 1057 Blood Urea Nitrogen 14 MG/DL 07/19/16 1057 Creatinine 0.75 MG/DL 07/19/16 1057 Random Glucose 93 MG/DL 07/19/16 1057 Hemoglobin A1c 4.5 % 07/19/16 1057 Aspartate Amino Transf (AST/SGOT) 11 U/L L 07/19/16 1057 Alanine Aminotransferase (ALT/SGPT) 19 U/L 07/19/16 1057 Alkaline Phosphatase 94 U/L 07/19/16 1057 Thyroid Stimulating Hormone 3rd Gen 0.910 uIU/ML 07/19/16 1057 Beta HCG, Qualitative LESS THAN 1 MIU/ML 07/19/16 1057 25-Hydroxy Vitamin D Total 18.8 ng/ML L 07/19/16 1057 Vitamin B12 Level 741 PG/ML 07/19/16 1057 Clozapine (Clozaril) Level 636 ng/mL 07/20/16 1044 Clozapine & Norclozapine Level 956 ng/mL 07/20/16 1044 Norclozapine Level 320 ng/mL 07/20/16 1044 Urine Opiates Screen NEG 07/17/16 1255 Urine Barbiturates Screen NEG 07/17/16 1255 Urine Amphetamines Screen NEG 07/17/16 1255 Urine Benzodiazepines Screen NEG 07/17/16 1255 Urine Cocaine Screen NEG 07/17/16 1255 Urine Cannabinoids Screen NEG 07/17/16 1255 Summary of Procedures None done Imaging None done Pending results at discharge: No Medications # of Antipsychotic meds at D/C: 1 Approp Antipsych med options 1 - Minimum of three failed multiple trials of monotherapy. 2 - Documented plan to taper to monotherapy due to previous use of multiple meds OR cross-taper in progress at D/C. 3 - Documentation of augmentation of Clozapine. 4 - Justification other than those listed in allowable values 1-3, document here : Discharge Discharge Date: Jul 24, 2016 Discharge Diagnosis: (1) Schizoaffective disorder, bipolar type Diagnosis: Principal (stabilized) ICD Code: F25.0 (2) borderline personality traits Diagnosis: Secondary GAF on discharge is 60 Mental Status Exam at Disch Patient is in hospital attire. She is well groomed and maintaining basic hygiene. She is awake and alert and oriented 3. No evidence of delirium. No abnormal motor movements noted. Speech is within normal limits for rate, tone and volume. Language and fund of knowledge seemed average. Focus and concentration intact. Memory grossly intact on clinical exam. Mood is good and affect is full and reactive. Thought process linear. No loosening of associations. No evident delusional beliefs. Denies audiovisual hallucinations. In particular, she denies any command auditory hallucinations. Denies suicidal or homicidal ideation, intent or plan. Insight and judgment are fair. Pt Condition on Discharge: Stable Discharge Disposition: Discharge Home Discharge Instructions Diet Instructions: As Tolerated, No Restrictions Activities you can perform: Weight Bearing as Jules Scheduled Appointment: as per counselor's notes New Orders: VITAMIN D,25-HYDROXY - 3 Months New Medications: Risperidone Inj (Risperdal Consta Inj) 50 Mg Inj 50 MG IM Q14D Risperdal Consta 50mg IM administered 07/24/16. This dose of Risperdal Consta is due 08/07/16. Mental Health #2 Ref 0 VIAL Buspirone (Buspirone) 10 Mg Tab 20 MG PO DAILY@09,15,21 Mental Health Days 10 Ref 2 TAB Cholecalciferol (D 1000) 1,000 Unit Tab 1000 UNITS PO DAILY Vitamin D supplement Days 10 Ref 2 TAB Clozapine (Clozaril) 100 Mg Tab 400 MG PO HS Mental Health Days 10 Ref 2 TAB Clozapine (Clozaril) 100 Mg Tab 100 MG PO DAILY Mental Health Days 10 Ref 2 TAB ([Patient Own Medication]) 1 EA EA 0 EA PO DAILY Trintellix 20mg daily. Order is to update med rec only. Patient has adequate supply at home. Mental Health Days 0 Ref 0 EA Continued Medications: Loperamide (Anti-Diarrheal) 2 Mg Cap 2 MG PO DIRECTED One capsule after each loose stool. Not to exceed 8 capsules per day. CAP Discontinued Medications: Buspirone (Buspirone) 15 Mg Tab 15 MG PO BID Anxiety Ref 0 TAB Clozapine (Clozaril) 100 Mg Tab 500 MG PO HS Schizophrenia Ref 0 TAB Discharge Time <= 30 minutes Discharge/Advance Care Plan Health Problems: (1) Schizoaffective disorder, bipolar type Goals to promote your health * To prevent worsening of your condition and complications * To maintain your health at the optimal level Directions to meet your goals Take your medications as prescribed Follow your dietary instruction Follow activity as directed Keep your appointments as scheduled Take your immunizations and boosters as scheduled If your symptoms worsen call your PCP, if no PCP go to Urgent Care Center or Emergency Room For 28/08 questions related to your inpatient stay or results of tests pending at discharge, please contact Dr. José Shukla at Smoking is Dangerous to Your Health. Avoid second hand smoking José Shukla MD Jul 24, 2016 10:28
[2016-07-24] MEDS ORDERED: [UNRECOGNIZED DRUG - OTHER] IM ONE (12:00)
== END 2016-07-24 15:15 | disposition home or self-care (01) | DRG 885 ==
LOC: NEPD 11:47 → NEDA 07-18 15:30 → H260 07-18 16:42
PROVIDERS: ADMIT Psychiatry & Neurology Psychiatry; ATTEND Psychiatry & Neurology Psychiatry
DX: F25.0 Schizoaffective disorder, bipolar type (principal); F60.3 Borderline personality disorder; K58.0 Irritable bowel syndrome with diarrhea; K21.9 Gastro-esophageal reflux disease without esophagitis; F17.210 Nicotine dependence, cigarettes, uncomplicated
CPT/HCPCS: 80053; 80061; 80159; 80307; 81001; 82306; 82607; 83036; 84443; 84703; 85025; 93005; G0480; J2794

== ENCOUNTER 2016-11-27 13:18 | Inpatient (IN) | payer MEDICAID, OTHER ==
[~2016-11-27] VITALS: Ht 157.5 cm; Wt 65.3 kg
[~2016-11-27 13:18] MED LIST changes: +ANTI2CAP PO; +BUSP10TA PO; -BUSP5TAB3 PO; -CYMB30CA PO; -IMOD2TAB PO; +Patient Own Medication PO; +RISP50P IM; +VITA1000 PO
[2016-11-27] MEDS ORDERED: BUSP10TA PO (13:48)
[2016-11-27] MEDS ORDERED: VORT1TAB3 PO (13:48)
[2016-11-27 13:52] VITALS: BP 131/77; PULSE 94; RESP 15; TEMP 98; O2SAT 96
--- NOTE | 2016-11-27 13:56 | PD ---
HPI Chief Complaint: Suicidal idealation Time Seen by Provider: 13:39 Travel History International Travel<30 days: No Contact w/Intl Traveler<30days: No Traveled to known affect area: No History of Present Illness HPI Patient is a 41 year old female with history of schizoaffective disorder who was placed under piper act as she was making suicidal ideations. Patient reports that she has been very stressed out with the holidays, reports that she misses her family members. Reports that she has thoughts of committing suicide by overdosing on medications. Patient reports that she has tried to overdose on Tylenol in the past, reports that she did tell her psychiatrist about her suicidal idealizations and he placed her under a Piper act. Patient reports that she is david for safety at this time. She has not taken any medications in attempt to overdose PFSH Past Medical History Anemia: Yes Arthritis: No Asthma: No Autoimmune Disease: No Blood Disorders: No Bipolar Disorder: Yes Anxiety: Yes Depression: Yes Heart Rhythm Problems: No Cancer: No Cardiovascular Problems: No High Cholesterol: No Chemotherapy: No Chest Pain: No Congestive Heart Failure: No COPD: No Cerebrovascular Accident: No Diabetes: No Diminished Hearing: No Endocrine: No GERD: Yes Genitourinary: No Hiatal Hernia: No Immune Disorder: No Implanted Vascular Access Dvce: No Musculoskeletal: No Neurologic: Yes Psychiatric: Yes (Schizoaffective Disorder, Bipolar Type) Reproductive: No Respiratory: No Immunizations Current: Yes Migraines: No Radiation Therapy: No Schizophrenia: Yes Seizures: No Sickle Cell Disease: No Sleep Apnea: No Thyroid Disease: No Ulcer: No Menopausal: No : 0 Para: 0 Miscarriage: 0 : 0 Past Surgical History Abdominal Surgery: No AICD: No Arteriovenous Shunt: No Cardiac Surgery: No Ear Surgery: No Endocrine Surgery: No Eye Surgery: No Genitourinary Surgery: No Gynecologic Surgery: No Insulin Pump: No Joint Replacement: No Neurologic Surgery: No Oral Surgery: No Pacemaker: No Thoracic Surgery: No Other Surgery: Yes (L EYE/LAZY EYE) Social History Alcohol Use: No Tobacco Use: No Substance Use: No Allergies-Medications (Allergen,Severity, Reaction): Coded Allergies: No Known Allergies (Verified , 10/27/15) Reported Meds & Prescriptions Reported Meds & Active Scripts Active Risperdal Consta Inj (Risperidone) 50 Mg Inj 50 Mg IM Q14D Risperdal Consta 50mg IM administered 07/24/16. This dose of Risperdal Consta is due 08/07/16. [Patient Own Medication] 1 EA Ea 0 Ea PO DAILY 0 Days Trintellix 20mg daily. Order is to update med rec only. Patient has adequate supply at home. Clozaril (Clozapine) 100 Mg Tab 100 Mg PO DAILY 10 Days Clozaril (Clozapine) 100 Mg Tab 400 Mg PO HS 10 Days D 1000 (Cholecalciferol) 1,000 Unit Tab 1,000 Units PO DAILY 10 Days Buspirone (Buspirone HCl) 10 Mg Tab 20 Mg PO DAILY@09,15,21 10 Days Reported Anti-Diarrheal (Loperamide HCl) 2 Mg Cap 2 Mg PO DIRECTED One capsule after each loose stool. Not to exceed 8 capsules per day. Review of Systems General / Constitutional: No: Fever Eyes: No: Visual changes HENT: No: Headaches Cardiovascular: No: Chest Pain or Discomfort Respiratory: No: Shortness of Breath Gastrointestinal: No: Abdominal Pain Genitourinary: No: Dysuria Musculoskeletal: No: Pain Skin: No Rash Neurologic: No: Weakness Psychiatric: Positive: Depression, Suicidal Ideations, No: Homicidal Ideation Endocrine: No: Polydipsia Hematologic/Lymphatic: No: Easy Bruising Physical Exam Narrative GENERAL: NAD SKIN: Focused skin assessment warm/dry. HEAD: Atraumatic. Normocephalic. EYES: Pupils equal and round. No scleral icterus. No injection or drainage. ENT: No nasal bleeding or discharge. Mucous membranes pink and moist. NECK: Trachea midline. No JVD. CARDIOVASCULAR: Regular rate and rhythm. No murmur appreciated. RESPIRATORY: No accessory muscle use. Clear to auscultation. Breath sounds equal bilaterally. GASTROINTESTINAL: Abdomen soft, non-tender, nondistended. Hepatic and splenic margins not palpable. MUSCULOSKELETAL: No obvious deformities. No clubbing. No cyanosis. No edema. NEUROLOGICAL: Awake and alert. No obvious cranial nerve deficits. Motor grossly within normal limits. Normal speech. PSYCHIATRIC: Depressed mood and affect; + SI, - HI. Data Data Orders Orders Complete Blood Count With Diff (11/27/16 13:46) Comprehensive Metabolic Panel (11/27/16 13:46) Psych Screen (11/27/16 13:46) Drug Screen, Random Urine (11/27/16 13:46) Alcohol (Ethanol) (11/27/16 13:46) Salicylates (Aspirin) (11/27/16 13:46) Tylenol (Acetaminophen) (11/27/16 13:46) MDM Medical Decision Making Medical Screen Exam Complete: Yes Emergency Medical Condition: Yes Medical Record Reviewed: Yes Differential Diagnosis depression, suicidal ideation Narrative Course Patient contracts for safety at this time. Psychiatric screening labs ordered. Once medically cleared, will have patient be seen by psychiatric screeners Valeri Hernandez DO Nov 27, 2016 13:56
[2016-11-27 14:45] LABS: AUTOMATED NEUTROPHIL # 5.1 TH/MM3 (1.8-7.7); BASOPHIL % 0.1 % (0.0-2.0); HEMATOCRIT 38.8 % (35.0-46.0); HEMO FLAGS DIFF FINAL; LYMPH % 16.1 % (9.0-44.0); MEAN CELL VOLUME 91.5 FL (80.0-100.0); MEAN CORPUSCULAR HEMOGLOBIN 30.8 PG (27.0-34.0); MEAN CORPUSCULAR HGB CONC 33.7 % (32.0-36.0); MONO % 4.4 % (0.0-8.0); NEUT % 79.4 % (16.0-70.0); PLATELET COUNT 192 TH/MM3 (150-450); RED BLOOD COUNT 4.25 MIL/MM3 (4.00-5.30); RED CELL DISTRIBUTION WIDTH 13.9 % (11.6-17.2); WHITE BLOOD COUNT 6.4 TH/MM3 (4.0-11.0)
[2016-11-27 15:09] LABS: ANION GAP 9 MEQ/L (5-15); AST (GOT) 14 U/L (15-37); BICARBONATE 22.1 MEQ/L (21.0-32.0); BLOOD UREA NITROGEN 9 MG/DL (7-18); CHLORIDE 109 MEQ/L (98-107); GLOMERULAR FILTRATION RATE 104 ML/MIN (>89); POTASSIUM 3.8 MEQ/L (3.5-5.1); SODIUM (NA) 140 MEQ/L (136-145)
[2016-11-27 15:14] LABS: ACETAMINOPHEN LESS THAN 2.0 MCG/ML (10.0-30.0); ALKALINE PHOSPHATASE 85 U/L (45-117); ALT (GPT) 14 U/L (10-53); TOTAL BILIRUBIN ADULT 0.4 MG/DL (0.2-1.0)
[2016-11-27 15:31] LABS: ALCOHOL LESS THAN 3 MG/DL (0-5)
[2016-11-27 23:07] VITALS: BP 122/80; PULSE 76; RESP 18
[2016-11-28 02:29] VITALS: BP 124/74; PULSE 72; RESP 18
[2016-11-28 06:21] VITALS: BP 141/78; PULSE 85; RESP 16
[2016-11-28 07:50] VITALS: BP 130/71; PULSE 96; RESP 18; TEMP 97.7; O2SAT 98
[2016-11-28] MEDS ORDERED: MAGNESIUM HYDROXIDE SUSP 30 ML CUP PO PRN (15:30)
[2016-11-28] MEDS ORDERED: LORazepam 1 MG TAB PO PRN (15:30)
[2016-11-28] MEDS ORDERED: LORazepam 2 MG/ML VIAL IM PRN (15:30)
[2016-11-28] MEDS ORDERED: ACETAMINOPHEN 325 MG TAB PO PRN (15:30)
[2016-11-28] MEDS ORDERED: ALUMINUM/MAGNESIUM/SIMETH 30 ML CUP PO PRN (15:30)
--- NOTE | 2016-11-28 15:44 | HHI.HP ---
Provisional Diagnosis Admission Date Nov 28, 2016 at 15:29 [place] I. Schizoaffective disorder, depressed type Certification of Person's Competence To Provide Express and Informed Consent I have personally examined Chelo Norman , a person being served at [facility] on, Nov 28, 2016 15:39. Express and informed consent means consent voluntarily given in writing, by a competent person, after sufficient explanation and disclosure of the subject matter involved to enable the person to make a knowing and willful decision without any element of force, fraud, deceit, duress, or other form of constraint or coercion. This person is 18 years of age or older, is not now known to be incompetent to consent to treatment with a guardian advocate, and does not have a health care surrogate or proxy currently making medical treatment decisions. I have found this person to be one of the following: [x] Competent to provide express and informed consent, as defined above, for voluntary admission to this facility and is competent to provide express and informed consent for treatment. He/she has the consistent capacity to make well reasoned, willful, and knowing decisions concerning his or her medical or mental health treatment. The person fully and consistently understands the purpose of the admission for examination/placement and is fully capable of personally exercising all rights [place] Incompetent to provide express and informed consent to voluntary admission, and this is incompetent to provide express and informed consent to treatment. The person must be transferred to involuntary status and a petition for a guardian advocate filed with the Circuit Court. [] Refusing to provide express and informed consent to voluntary admission but is competent to provide express and informed consent for treatment. The person must be discharged or transferred to involuntary status. Form shall be completed within 24 hours of a person's arrival at the receiving facility and filed in the clinical record of each person: 1. Admitted on a voluntary basis 2. Permitted to provide express and informed consent to his/her own treatment 3. Allowed to transfer from involuntary to voluntary status 4. Prior to permitting a person to consent to his or her own treatment after having been previously found incompetent to consent to treatment. 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 The patient is very pleasant but states she has been stressed out with the upcoming holidays and she misses her family members. She has experienced 2 weeks of increasing depressive symptoms and the last several days she has been having repeated intermittent thoughts of suicide. She has a plan of overdosing on her psychiatric medicines, of which there are many. She also reports overdosing on Tylenol in the past. She actually told her psychiatrist earlier today of her suicidal thoughts, seeking help and she was Piper acted as a result of this conversation. Additionally, the patient describes symptoms of depressed mood, anhedonia, anxiety, insomnia, diminished self-esteem, feelings of hopelessness and helplessness, as well as suicidal thoughts with plan. No alcohol or drugs are involved. Review of Systems Psychiatric: COMPLAINS OF: Anxiety, Depression Except as stated in HPI: all other systems reviewed are Neg Past Psych History Psychological trauma history Denied for psychological trauma but patient has a history of schizoaffective disorder Violence risk - others (6 mos) Minimal Violence risk - self (6 mos) High Substance Abuse History Drugs/Alcohol past 12 months Denied Past Family Social History Coded Allergies: No Known Allergies (Verified , 10/27/15) Active Scripts Risperidone Inj (Risperdal Consta Inj) 50 Mg Inj, 50 MG IM Q14D for Mental Health, #2 VIAL 0 Refills Risperdal Consta 50mg IM administered 07/24/16. This dose of Risperdal Consta is due 08/07/16. Prov:José Shukla MD 07/24/16 Clozapine (Clozaril) 100 Mg Tab, 100 MG PO DAILY for Mental Health for 10 Days, TAB 2 Refills Prov:José Shukla MD 07/24/16 Clozapine (Clozaril) 100 Mg Tab, 400 MG PO HS for Mental Health for 10 Days, TAB 2 Refills Prov:José Shukla MD 07/24/16 Cholecalciferol (D 1000) 1,000 Unit Tab, 1000 UNITS PO DAILY for Vitamin D supplement for 10 Days, TAB 2 Refills Prov:José Shukla MD 07/24/16 Reported Medications Buspirone (Buspirone) 10 Mg Tab, 20 MG PO BID for Anxiety, TAB 0 Refills 11/27/16 Vortioxetine (Trintellix) 20 Mg Tab, 20 MG PO DAILY for Control Depression, #30 TAB 0 Refills 11/27/16 Loperamide (Anti-Diarrheal) 2 Mg Cap, 2 MG PO DIRECTED, CAP One capsule after each loose stool. Not to exceed 8 capsules per day. 07/17/16 Discontinued Scripts [Patient Own Medication] 1 EA EA No Conflict Check, 0 EA PO DAILY for Mental Health for 0 Days, EA 0 Refills Trintellix 20mg daily. Order is to update med rec only. Patient has adequate supply at home. Prov:José Shukla MD 07/24/16 Buspirone (Buspirone) 10 Mg Tab, 20 MG PO DAILY@,, for Mental Health for 10 Days, TAB 2 Refills Prov:José Shukla MD 07/24/16 Current Medications Medications (Trade) Dose Ordered Sig/Cory Route Start Time Stop Time Status Last Admin (Ativan) 1 mg Q6H PRN PO 11/28/16 15:30 UNV (Ativan Inj) 1 mg Q6H PRN IM 11/28/16 15:30 UNV (Tylenol) 650 mg Q4H PRN PO 11/28/16 15:30 UNV (Milk Of Magnesia Liq) 30 ml DAILY PRN PO 11/28/16 15:30 UNV (Mag-Al Plus Susp Liq) 30 ml Q6H PRN PO 11/28/16 15:30 UNV (Habitrol 21 Mg Patch.24 Hr) 1 patch DAILY T-DERMAL 11/28/16 15:30 UNV Miscellaneous Information 1 DAILY T-DERMAL 11/29/16 09:00 UNV (Buspar) 20 mg BID PO 11/28/16 21:00 UNV (Vitamin D3) 1,000 units DAILY PO 11/29/16 09:00 UNV (Clozaril) 100 mg DAILY PO 11/29/16 09:00 UNV (Clozaril) 400 mg HS PO 11/28/16 21:00 UNV (Imodium) 2 mg BID PO 11/28/16 21:00 UNV Non-Formulary Medication 20 mg DAILY PO 11/29/16 09:00 UNV Family Psych History Family history is positive for psychotic mental illness. Social History Unemployed and applying for Social Security disability. Unmarried. Denies the use of alcohol or drugs. Patient's Strengths (min. 2) Verbal and has access to healthcare. Physical Exam GENERAL: SKIN: Warm and dry. HEAD: Normocephalic. EYES: No scleral icterus. No injection or drainage. NECK: Supple, trachea midline. No JVD or lymphadenopathy. CARDIOVASCULAR: Regular rate and rhythm without murmurs, gallops, or rubs. RESPIRATORY: Breath sounds equal bilaterally. No accessory muscle use. GASTROINTESTINAL: Abdomen soft, non-tender, nondistended. MUSCULOSKELETAL: No cyanosis, or edema. BACK: Nontender without obvious deformity. No CVA tenderness. Vital Signs Vital Signs Date Time Temp Pulse Resp B/P (MAP) Pulse Ox O2 Delivery O2 Flow Rate FiO2 11/28/16 07:50 97.7 96 18 130/71 (90) 98 Room Air Mental Status Examination Appearance: Appropriate Consciousness: Alert Orientation: x4 Motor Activity: Normal gait Speech: Unremarkable Language: Adequate Fund of Knowledge: Adequate Attention and Concentration: Adequate Memory: Unremarkable Mood: Sad Affect: Sad Thought Process & Associations: Intact Thought Content: Appropriate Hallucination Type: None Delusion Type: None Suicidal Ideation: Yes Suicidal Plan: Yes Suicidal Intention: No Homicidal Ideation: No Homicidal Plan: No Homicidal Intention: No Insight: Adequate Judgment: Adequate Assessment & Plan Assessment & Plan Estimated LOS: Jose Kennedy MD Nov 28, 2016 15:44
[2016-11-28 16:17] VITALS: BP 125/74; PULSE 86; RESP 18; O2SAT 97
[2016-11-28 16:37] VITALS: BP 121/78; PULSE 95; RESP 16; TEMP 98.1; O2SAT 95
[2016-11-28] MEDS: NICOTINE 21 MG/24 HR PATCH T-DERMAL SCH (17:38)
[2016-11-28] MEDS: LOPERAMIDE HCL 2 MG CAP PO SCH (21:03)
[2016-11-28] MEDS: busPIRone HCL 10 MG TAB PO SCH (21:03)
[2016-11-28] MEDS: cloZAPine 100 MG TAB PO SCH (21:04)
[2016-11-29 05:23] VITALS: BP 98/57; PULSE 90; RESP 17; TEMP 97.6
[2016-11-29 06:11] VITALS: BP 98/57; PULSE 90; RESP 17; TEMP 97.6; O2SAT 97
[2016-11-29] MEDS: LOPERAMIDE HCL 2 MG CAP PO SCH ×2 (08:28→20:22)
[2016-11-29] MEDS: CHOLECALCIFEROL (VIT D3) 1000 UNIT TAB PO SCH (08:28)
[2016-11-29] MEDS: busPIRone HCL 10 MG TAB PO SCH ×2 (08:29→20:22)
[2016-11-29] MEDS: REMOVE OLD PATCH T-DERMAL SCH (08:29)
[2016-11-29] MEDS: NICOTINE 21 MG/24 HR PATCH T-DERMAL SCH (08:29)
[2016-11-29] MEDS: cloZAPine 100 MG TAB PO SCH ×2 (08:30→20:22)
[2016-11-29] MEDS ORDERED: NON-FORMULARY DRUG (Vortioxetine (Trintellix) 20 MG) PO SCH (09:00)
[2016-11-29] MEDS ORDERED: VORTIOXETINE PO SCH (09:00)
--- NOTE | 2016-11-29 11:58 | HHI.PYPN ---
Subjective Chief Complaint: Depression, SI Remarks Patient seen and examined with nurse. Chart reviewed. Case discussed with nursing staff. On my examination today, patient presents with prominent cluster B personality traits. Reports that she is "still feeling suicidal, still feeling depressed." Plan would be to overdose. Contracts for safety on the unit. Main stressors include holidays and recent losses. Reports that she is sleeping okay. Denies any audiovisual hallucinations. No delusional material. No hypomanic or manic symptoms. Reports that she plans to start a course of psychotherapy on an outpatient basis. Denies side effects from medications but doesn't feel like Trintellix is working. She would like to try a different antidepressant. Patient recalls previous trials of Wellbutrin and Celexa. Reviewing previous MAR is from this facility, I see also trials of Cymbalta, Paxil and Remeron. We discussed the risks and benefits of a trial of an SSRI like Prozac. No physical complaints. Review of Systems Except as stated in HPI: all other systems reviewed are Neg Mental Status Examination Appearance: Appropriate Consciousness: Alert Orientation: x4 Motor Activity: Other (no motor abnormalities noted) Speech: Unremarkable Language: Adequate Fund of Knowledge: Adequate Attention and Concentration: Adequate Memory: Unremarkable Mood: Other (depressed) Affect: Blunt Thought Process & Associations: Intact Thought Content: Appropriate Hallucination Type: None Delusion Type: None Suicidal Ideation: Yes Suicidal Plan: Yes Suicidal Intention: No Homicidal Ideation: No Homicidal Plan: No Homicidal Intention: No Insight: Fair Judgment: Impulsive Results Labs Labs reviewed. CBC unremarkable. ANC adequate for Clozaril therapy. CMP unremarkable. Toxicology is negative. EKG reviewed. Vitals/IOs Vital Signs Date Time Temp Pulse Resp B/P (MAP) Pulse Ox O2 Delivery O2 Flow Rate FiO2 11/29/16 06:11 97.6 90 17 98/57 (71) 97 11/28/16 16:17 Room Air Assessment & Plan Problem List: (1) borderline personality traits Status: Acute (2) Adjustment disorder with depressed mood ICD Codes: F43.21 - Adjustment disorder with depressed mood Assessment & Plan Based on current presentation, suspect adjustment reaction with depressed mood overlying borderline personality style rather than exacerbation of patient's schizoaffective disorder. Discontinue Trintellix and initiate Prozac 20mg daily. Continue other psychotropics as ordered. Continue to monitor on the inpatient unit. Continue other medications and care as ordered. Patient may sign voluntary and consent for medications. Justification for Cont. Inpt. Monitoring for impairments in safety. Med changes. Risk for decompensation in less restrictive environment. Discharge Planning Pending psychiatric stabilization. ELOS: 2-3 days. Request HC Surrog/Guard Advoc?: No José Shukla MD Nov 29, 2016 11:58
[2016-11-29] MEDS: FLUoxetine HCL 20 MG CAP PO SCH (12:21)
[2016-11-29 15:19] LABS: AUTOMATED NEUTROPHIL # 4.9 TH/MM3 (1.8-7.7); BASOPHIL % 0.1 % (0.0-2.0); HEMATOCRIT 41.5 % (35.0-46.0); HEMO FLAGS DIFF FINAL; LYMPH % 20.9 % (9.0-44.0); LYMPHOCYTE # 1.4 TH/MM3 (1.0-4.8); MEAN CELL VOLUME 91.7 FL (80.0-100.0); MEAN CORPUSCULAR HGB CONC 33.8 % (32.0-36.0); MONO % 6.3 % (0.0-8.0); NEUT % 72.7 % (16.0-70.0); PLATELET COUNT 213 TH/MM3 (150-450); RED BLOOD COUNT 4.52 MIL/MM3 (4.00-5.30); RED CELL DISTRIBUTION WIDTH 13.9 % (11.6-17.2); WHITE BLOOD COUNT 6.8 TH/MM3 (4.0-11.0)
[2016-11-29 15:41] LABS: ALT (GPT) 14 U/L (10-53); ANION GAP 9 MEQ/L (5-15); AST (GOT) 7 U/L (15-37); BICARBONATE 26.5 MEQ/L (21.0-32.0); BLOOD UREA NITROGEN 15 MG/DL (7-18); CHLORIDE 107 MEQ/L (98-107); GLOMERULAR FILTRATION RATE 59 ML/MIN (>89); POTASSIUM 3.9 MEQ/L (3.5-5.1); SODIUM (NA) 142 MEQ/L (136-145)
[2016-11-29 16:04] LABS: ALKALINE PHOSPHATASE 90 U/L (45-117); HDL CHOLESTEROL 51.5 MG/DL (40.0-60.0); LDL CHOLESTEROL 137 MG/DL (0-99); TOTAL BILIRUBIN ADULT 0.3 MG/DL (0.2-1.0)
[2016-11-29 17:00] VITALS: BP 129/85; PULSE 85; RESP 17; TEMP 98; O2SAT 98
[2016-11-29 17:29] LABS: HEMOGLOBIN A1a 1.2 %; HEMOGLOBIN A1b 1.2 %; HEMOGLOBIN Ao 87.6 %; HEMOGLOBIN LA1C 1.9 %; HEMOGLOBIN P3 3.2 %
--- NOTE | 2016-11-29 21:06 | EKG ---
Date Performed: 11/29/2016 Time Performed: 09:01:10 PTAGE: 41 years EKG: Sinus rhythm BORDERLINE LEFT AXIS DEVIATION INCOMPLETE RIGHT BUNDLE BRANCH BLOCK BORDERLINE ECG PREVIOUS TRACING : 07/18/2016 18.00 Compared to prior tracing no significant change DOCTOR: Marii Nichole Interpretating Date/Time 11/29/2016 21:05:28
[2016-11-30 05:29] VITALS: BP 95/56; PULSE 78; RESP 16; TEMP 98.1; O2SAT 97
[2016-11-30] MEDS: CHOLECALCIFEROL (VIT D3) 1000 UNIT TAB PO SCH (08:15)
[2016-11-30] MEDS: FLUoxetine HCL 20 MG CAP PO SCH (08:15)
[2016-11-30] MEDS: LOPERAMIDE HCL 2 MG CAP PO SCH ×2 (08:15→20:26)
[2016-11-30] MEDS: cloZAPine 100 MG TAB PO SCH ×2 (08:16→20:26)
[2016-11-30] MEDS: busPIRone HCL 10 MG TAB PO SCH ×2 (08:17→20:26)
[2016-11-30] MEDS: NICOTINE 21 MG/24 HR PATCH T-DERMAL SCH (08:18)
[2016-11-30] MEDS: REMOVE OLD PATCH T-DERMAL SCH (08:19)
--- NOTE | 2016-11-30 11:27 | HHI.PYPN ---
Subjective Chief Complaint: Depression, SI Remarks Patient seen and examined with nurse. Chart reviewed. Case discussed with nursing staff. No behavioral issues overnight. On my examination today, the patient reports that her mood is improving. She does smile at intervals. She says that her suicidal ideation is now only intermittent. No reported urge to hurt herself on the inpatient psychiatric unit. She denies any AVH. No delusional material. Denies side effects from medications. No physical complaints. Review of Systems ROS Limitations: Poor Historian Except as stated in HPI: all other systems reviewed are Neg Mental Status Examination Appearance: Appropriate Consciousness: Alert Orientation: x4 Motor Activity: Other (no abnormal motor movements noted) Speech: Unremarkable Language: Adequate Fund of Knowledge: Adequate Attention and Concentration: Adequate Memory: Unremarkable Mood: Other (depressed but improving) Affect: Blunt Thought Process & Associations: Intact Thought Content: Appropriate Hallucination Type: None Delusion Type: None Suicidal Ideation: Yes (intermittent now) Suicidal Plan: No Suicidal Intention: No Homicidal Ideation: No Homicidal Plan: No Homicidal Intention: No Insight: Fair Judgment: Impulsive Results Labs Test 11/29/16 14:27 White Blood Count 6.8 TH/MM3 Red Blood Count 4.52 MIL/MM3 Hemoglobin 14.0 GM/DL Hematocrit 41.5 % Mean Corpuscular Volume 91.7 FL Mean Corpuscular Hemoglobin 31.0 PG Mean Corpuscular Hemoglobin Concent 33.8 % Red Cell Distribution Width 13.9 % Platelet Count 213 TH/MM3 Mean Platelet Volume 8.4 FL Neutrophils (%) (Auto) 72.7 % Lymphocytes (%) (Auto) 20.9 % Monocytes (%) (Auto) 6.3 % Eosinophils (%) (Auto) 0.0 % Basophils (%) (Auto) 0.1 % Neutrophils # (Auto) 4.9 TH/MM3 Lymphocytes # (Auto) 1.4 TH/MM3 Monocytes # (Auto) 0.4 TH/MM3 Eosinophils # (Auto) 0.0 TH/MM3 Basophils # (Auto) 0.0 TH/MM3 CBC Comment DIFF FINAL Differential Comment Blood Urea Nitrogen 15 MG/DL Creatinine 1.02 MG/DL Random Glucose 83 MG/DL Total Protein 6.8 GM/DL Albumin 3.8 GM/DL Calcium Level 8.8 MG/DL Alkaline Phosphatase 90 U/L Aspartate Amino Transf (AST/SGOT) 7 U/L Alanine Aminotransferase (ALT/SGPT) 14 U/L Total Bilirubin 0.3 MG/DL Sodium Level 142 MEQ/L Potassium Level 3.9 MEQ/L Chloride Level 107 MEQ/L Carbon Dioxide Level 26.5 MEQ/L Anion Gap 9 MEQ/L Estimat Glomerular Filtration Rate 59 ML/MIN Hemoglobin A1c 4.7 % Triglycerides Level 156 MG/DL Cholesterol Level 220 MG/DL LDL Cholesterol 137 MG/DL HDL Cholesterol 51.5 MG/DL Cholesterol/HDL Ratio 4.27 RATIO Vitamin B12 Level 607 PG/ML 25-Hydroxy Vitamin D Total 24.8 ng/ML Thyroid Stimulating Hormone 3rd Gen 0.632 uIU/ML Beta HCG, Qualitative LESS THAN 1 MIU/ML Labs reviewed. Decreased GFR noted. Low vitamin D. Lipid panel reviewed, and the patient will be referred for primary care follow-up on discharge. Vitals/IOs Vital Signs Date Time Temp Pulse Resp B/P (MAP) Pulse Ox O2 Delivery O2 Flow Rate FiO2 11/30/16 05:29 98.1 78 16 95/56 (69) 97 11/28/16 16:17 Room Air Assessment & Plan Problem List: (1) borderline personality traits Status: Acute (2) Adjustment disorder with depressed mood ICD Codes: F43.21 - Adjustment disorder with depressed mood Assessment & Plan Continue Prozac as ordered. Encourage fluids and recheck a BMP in the morning. Continue to monitor on the inpatient unit. Encourage participation in groups and unit activities. Continue other medications and care as ordered. Justification for Cont. Inpt. Monitoring for impairments in safety, none noted. Discharge Planning Anticipate discharge Sunday/Sunday. I have left a voicemail with a counselor to discuss the case. Request HC Surrog/Guard Advoc?: No José Shukla MD Nov 30, 2016 11:27
[2016-11-30 17:47] VITALS: BP 99/62; PULSE 77; RESP 17; TEMP 97.8; O2SAT 99
[2016-12-01 05:36] VITALS: BP 107/59; PULSE 80; RESP 17; TEMP 98.3; O2SAT 96
[2016-12-01] MEDS: NICOTINE 21 MG/24 HR PATCH T-DERMAL SCH (08:17)
[2016-12-01] MEDS: REMOVE OLD PATCH T-DERMAL SCH (08:17)
[2016-12-01] MEDS: busPIRone HCL 10 MG TAB PO SCH (08:18)
[2016-12-01] MEDS: LOPERAMIDE HCL 2 MG CAP PO SCH (08:18)
[2016-12-01] MEDS: CHOLECALCIFEROL (VIT D3) 1000 UNIT TAB PO SCH (08:18)
[2016-12-01] MEDS: FLUoxetine HCL 20 MG CAP PO SCH (08:18)
[2016-12-01] MEDS: cloZAPine 100 MG TAB PO SCH (08:18)
[2016-12-01 10:39] LABS: BICARBONATE 23.3 MEQ/L (21.0-32.0); POTASSIUM 3.8 MEQ/L (3.5-5.1)
[2016-12-01] MEDS ORDERED: FLUO20CA12 PO (11:43)
--- NOTE | 2016-12-01 11:43 | HHI.DS ---
Psychiatry Discharge Summary Inpatient Psychiatric care?: Yes Advance Directive: No Reason Not Provided: Declined Mental Health AdvanceDirective: No Health Care Proxy: No Admission Admission Date Nov 28, 2016 at 15:29 Admission Diagnosis: (1) Schizoaffective disorder, depressive type ICD Code: F25.1 - Schizoaffective disorder, depressive type Brief History This is a 41-year-old female, member of the fact team and followed by Ajith Henriquez, with a history of schizoaffective disorder, presenting under a Piper act for suicidal ideation with plan. The patient is very pleasant but states she has been stressed out with the upcoming holidays and she misses her family members. She has experienced 2 weeks of increasing depressive symptoms and the last several days she has been having repeated intermittent thoughts of suicide. She has a plan of overdosing on her psychiatric medicines, of which there are many. She also reports overdosing on Tylenol in the past. She actually told her psychiatrist earlier today of her suicidal thoughts, seeking help and she was Piper acted as a result of this conversation. Additionally, the patient describes symptoms of depressed mood, anhedonia, anxiety, insomnia, diminished self-esteem, feelings of hopelessness and helplessness, as well as suicidal thoughts with plan. No alcohol or drugs are involved. Tobacco Use In Past 30 Days: 5 or More Cigarettes/Day Alcohol Use: Never Hospital Course Patient was admitted to the locked inpatient psychiatric unit. Appropriate precautions were in place throughout patient's hospital stay. Patient was seen and examined daily on the unit by psychiatry and also visited by counselor. Psychotropic medications were adjusted. Patient tolerated medication changes well without side effects. Patient had improvement in presenting psychiatric symptomatology during the course of her hospital stay. There was no evidence of any suicidal or homicidal behavior on the unit. The patient remained in good behavioral control and was medication compliant. On the day of discharge: Patient seen and examined with nurse. Chart reviewed. Case discussed with nursing staff as well as with counselor. Per nursing staff, the patient reports that she is doing well and is requesting discharge from the unit. No behavioral issues overnight. On my examination today, the patient does indeed request discharge from the inpatient psychiatric unit today. She says that her mood is improved and is "good" today. She denies any suicidal or homicidal ideation, intent or plan on direct questioning and contracts for safety. We discuss her plans for coping with the stress of the holidays. No depressive or hypomanic/manic symptoms at this time. Denies audiovisual hallucinations. No delusional material. Ongoing cluster B personality traits. Denies side effects from medications. No physical complaints. Weighing the acute, chronic , and protective factors and based on the available evidence, I color checker to a reasonable degree of medical certainty that the patient does not presently meet criteria for involuntary psychiatric hospitalization. I do suspect there is a component of chronic risk for harm to self related to her cluster B personality style, but this risk would not be ameliorated by a longer inpatient psychiatric hospital stay. Given that she does not meet criteria for involuntary hospitalization and given that she is requesting discharge from the inpatient psychiatric unit today, I will arrange for her discharge today with psychiatric follow-up through the FACT team. Patient is also to follow-up with primary care. I have counseled the patient to return to psychiatric emergency room for any concerning psychiatric symptoms as part of a general safety plan. Results Blood Pressure 107 / 59 Vital Signs Date Time Temp Pulse Resp B/P (MAP) Pulse Ox O2 Delivery O2 Flow Rate FiO2 12/01/16 05:36 98.3 80 17 107/59 (75) 96 11/28/16 16:17 Room Air Laboratory Tests Test 11/29/16 14:27 12/01/16 09:14 Neutrophils (%) (Auto) 72.7 % (16.0-70.0) Creatinine 1.02 MG/DL (0.50-1.00) Aspartate Amino Transf (AST/SGOT) 7 U/L (15-37) Estimat Glomerular Filtration Rate 59 ML/MIN (>89) 85 ML/MIN (>89) Triglycerides Level 156 MG/DL (42-150) Cholesterol Level 220 MG/DL (120-200) LDL Cholesterol 137 MG/DL (0-99) 25-Hydroxy Vitamin D Total 24.8 ng/ML (30-100) Random Glucose 148 MG/DL (74-106) Chloride Level 108 MEQ/L (98-107) Laboratory Results Test 11/29/16 14:27 Cholesterol Level 220 MG/DL (120-200) HDL Cholesterol 51.5 MG/DL (40.0-60.0) Hemoglobin A1c 4.7 % (4.3-6.0) LDL Cholesterol 137 MG/DL (0-99) Triglycerides Level 156 MG/DL (42-150) Summary of Procedures None done Imaging None done Pending results at discharge: No Medications # of Antipsychotic meds at D/C: 1 Approp Antipsych med options 1 - Minimum of three failed multiple trials of monotherapy. 2 - Documented plan to taper to monotherapy due to previous use of multiple meds OR cross-taper in progress at D/C. 3 - Documentation of augmentation of Clozapine. 4 - Justification other than those listed in allowable values 1-3, document here : Discharge Discharge Date: Dec 01, 2016 Discharge Diagnosis: (1) borderline personality traits Diagnosis: Principal Status: Acute (2) Adjustment disorder with depressed mood Diagnosis: Secondary (resolved) ICD Code: F43.21 - Adjustment disorder with depressed mood Pt Condition on Discharge: Stable Discharge Disposition: Discharge Home Discharge Instructions Diet Instructions: As Tolerated, No Restrictions Activities you can perform: Weight Bearing as Jules Scheduled Appointment: as per counselor's notes. New Medications: Fluoxetine (Fluoxetine) 20 Mg Capsule 20 MG PO DAILY for Mental Health for 10 Days, #10 CAP 2 Refills Continued Medications: Buspirone (Buspirone) 10 Mg Tab 20 MG PO BID for Anxiety, TAB 0 Refills Cholecalciferol (D 1000) 1,000 Unit Tab 1000 UNITS PO DAILY for Vitamin D supplement for 10 Days, TAB 2 Refills Clozapine (Clozaril) 100 Mg Tab 400 MG PO HS for Mental Health for 10 Days, TAB 2 Refills Clozapine (Clozaril) 100 Mg Tab 100 MG PO DAILY for Mental Health for 10 Days, TAB 2 Refills Loperamide (Anti-Diarrheal) 2 Mg Cap 2 MG PO DIRECTED, CAP One capsule after each loose stool. Not to exceed 8 capsules per day. Risperidone Inj (Risperdal Consta Inj) 50 Mg Inj 50 MG IM Q14D for Mental Health, #2 VIAL 0 Refills Risperdal Consta 50mg IM administered 07/24/16. This dose of Risperdal Consta is due 08/07/16. Discontinued Medications: Vortioxetine (Trintellix) 20 Mg Tab 20 MG PO DAILY for Control Depression, #30 TAB 0 Refills Discharge Time <= 30 minutes Mental Status Examination Appearance: Appropriate Consciousness: Alert Orientation: x4 Motor Activity: Other (no motoric abnormalities noted) Speech: Unremarkable Language: Adequate Fund of Knowledge: Adequate Attention and Concentration: Adequate Memory: Unremarkable Mood: Good Affect: Appropriate (fairly full and reactive) Thought Process & Associations: Intact Thought Content: Appropriate Hallucination Type: None Delusion Type: None Suicidal Ideation: No Suicidal Plan: No Suicidal Intention: No Homicidal Ideation: No Homicidal Plan: No Homicidal Intention: No Insight: Fair Judgment: Adequate (fair) Discharge/Advance Care Plan Health Problems: (1) borderline personality traits (2) Adjustment disorder with depressed mood Goals to promote your health * To prevent worsening of your condition and complications * To maintain your health at the optimal level Directions to meet your goals Take your medications as prescribed Follow your dietary instruction Follow activity as directed Keep your appointments as scheduled Take your immunizations and boosters as scheduled If your symptoms worsen call your PCP, if no PCP go to Urgent Care Center or Emergency Room For 28/08 questions related to your inpatient stay or results of tests pending at discharge, please contact Dr. José Shukla at Smoking is Dangerous to Your Health. Avoid second hand smoking José Shukla MD Dec 01, 2016 11:43
== END 2016-12-01 14:10 | DRG 885 ==
LOC: NEPD 13:18 → NEDA 11-28 15:29 → H260 11-28 16:23
PROVIDERS: ADMIT Psychiatry & Neurology Psychiatry; ATTEND Psychiatry & Neurology Psychiatry
DX: F25.1 Schizoaffective disorder, depressive type (principal); R45.851 Suicidal ideations; F41.9 Anxiety disorder, unspecified; K21.9 Gastro-esophageal reflux disease without esophagitis; F60.3 Borderline personality disorder
CPT/HCPCS: 80048; 80053; 80061; 80307; 82306; 82607; 83036; 84443; 84703; 85025; 93005

== ENCOUNTER 2017-03-29 10:20 | Inpatient (IN) | payer MEDICAID, MEDICARE, OTHER ==
[~2017-03-29] VITALS: Ht 157.5 cm; Wt 63.2 kg
[~2017-03-29 10:20] MED LIST changes: -CLOZ100 PO; +CLOZ100T PO; +FLUO20CA12 PO; -Patient Own Medication PO
[2017-03-29 10:22] VITALS: BP 139/72; PULSE 118; RESP 16; TEMP 98.2; O2SAT 99
[2017-03-29 11:16] VITALS: BP 120/73; PULSE 100; RESP 20; TEMP 98; O2SAT 100
--- NOTE | 2017-03-29 11:25 | PD ---
HPI Chief Complaint: Psychiatric Symptoms Time Seen by Provider: 10:39 Travel History International Travel<30 days: No Contact w/Intl Traveler<30days: No Traveled to known affect area: No History of Present Illness HPI 41-year-old female presents to the emergency department voluntarily for psychological evaluation. She has history of schizoaffective and borderline personality disorder and she has been hearing voices for the past 3 days that have been telling her to kill herself. She reports suicidal ideation. Her plan is to overdose on her medications. She has history of suicidal attempt by overdose 2 times in the past. Denies homicidal ideations. Denies visual hallucinations. Denies illicit drug use or alcohol use. Symptoms are moderate to severe in severity. Symptoms are aggravated by the voices in her head. No known relieving factors. Has been taking her medication as prescribed. Says she is in the FACT program and see psychiatry at [facility]/act. Has history of IBS. Has no emergent medical complaints at this time. Denies chest pain, shortness breath, abdominal pain, fevers, vomiting. No known allergies. No other modifying factors or associated signs and symptoms. PFSH Past Medical History Anemia: Yes Arthritis: No Asthma: No Autoimmune Disease: No Blood Disorders: No Bipolar Disorder: Yes Anxiety: Yes Depression: Yes Heart Rhythm Problems: No Cancer: No Cardiovascular Problems: No High Cholesterol: No Chemotherapy: No Chest Pain: No Congestive Heart Failure: No COPD: No Cerebrovascular Accident: No Diabetes: No Diminished Hearing: No Endocrine: No Gastrointestinal Disorders: Yes (IBS) GERD: Yes Genitourinary: No Hiatal Hernia: No Immune Disorder: No Implanted Vascular Access Dvce: No Musculoskeletal: No Neurologic: Yes Psychiatric: Yes (Schizoaffective Disorder, Bipolar Type) Reproductive: No Respiratory: No Immunizations Current: Yes Migraines: No Radiation Therapy: No Schizophrenia: Yes Seizures: No Sickle Cell Disease: No Sleep Apnea: No Thyroid Disease: No Ulcer: No ?: Not Menopausal: No : 0 Para: 0 Miscarriage: 0 : 0 Past Surgical History Abdominal Surgery: No AICD: No Arteriovenous Shunt: No Cardiac Surgery: No Ear Surgery: Yes (lazy eye surgery) Endocrine Surgery: No Eye Surgery: No Genitourinary Surgery: No Gynecologic Surgery: No Insulin Pump: No Joint Replacement: No Neurologic Surgery: No Oral Surgery: No Pacemaker: No Thoracic Surgery: No Other Surgery: Yes (L EYE/LAZY EYE) Social History Alcohol Use: No Tobacco Use: Yes (1/2 ppd) Substance Use: No Allergies-Medications (Allergen,Severity, Reaction): Coded Allergies: No Known Allergies (Verified , 10/27/15) Reported Meds & Prescriptions Reported Meds & Active Scripts Active Fluoxetine (Fluoxetine HCl) 20 Mg Capsule 20 Mg PO DAILY 10 Days Risperdal Consta Inj (Risperidone) 50 Mg Inj 50 Mg IM Q14D Risperdal Consta 50mg IM administered 07/24/16. This dose of Risperdal Consta is due 08/07/16. Clozaril (Clozapine) 100 Mg Tab 100 Mg PO DAILY 10 Days Clozaril (Clozapine) 100 Mg Tab 400 Mg PO HS 10 Days D 1000 (Cholecalciferol) 1,000 Unit Tab 1,000 Units PO DAILY 10 Days Reported Buspirone (Buspirone HCl) 10 Mg Tab 20 Mg PO BID Anti-Diarrheal (Loperamide HCl) 2 Mg Cap 2 Mg PO DIRECTED One capsule after each loose stool. Not to exceed 8 capsules per day. Review of Systems Except as stated in HPI: all other systems reviewed are Neg Physical Exam Narrative GENERAL: Well-nourished, well-developed female patient, in no acute distress SKIN: Warm and dry. HEAD: Atraumatic. Normocephalic. EYES: Pupils equal and round. ENT: Mucosa pink and moist. NECK: Supple. Trachea midline. CARDIOVASCULAR: Regular rate and rhythm. No murmur appreciated. RESPIRATORY: No accessory muscle use. Clear to auscultation. Breath sounds equal bilaterally. GASTROINTESTINAL: Abdomen soft, non-tender, nondistended. Hepatic and splenic margins not palpable. Bowel sounds are active 4 quadrants. MUSCULOSKELETAL: No obvious deformities. No clubbing. No cyanosis. No edema. BACK: No CVA tenderness. NEUROLOGICAL: Awake and alert. Oriented 3. No obvious cranial nerve deficits. Motor grossly within normal limits. Normal speech. Moves all extremities. 5/5 strength to all extremities. PSYCHIATRIC: Flat affect. no delusional thought processes. No hallucinations. Data Data Last Documented VS Vital Signs Date Time Temp Pulse Resp B/P (MAP) Pulse Ox O2 Delivery O2 Flow Rate FiO2 03/29/17 11:16 98.0 100 20 120/73 (89) 100 Room Air Orders Orders Complete Blood Count With Diff (2/22/18 10:39) Comprehensive Metabolic Panel (03/29/17 10:39) Thyroid Stimulating Hormone (03/29/17 10:39) Psych Screen (03/29/17 10:39) Drug Screen, Random Urine (03/29/17 10:39) Alcohol (Ethanol) (03/29/17 10:39) Salicylates (Aspirin) (03/29/17 10:39) Tylenol (Acetaminophen) (03/29/17 10:39) MDM Medical Decision Making Medical Screen Exam Complete: Yes Emergency Medical Condition: Yes Medical Record Reviewed: Yes Differential Diagnosis Suicidal ideation, schizoaffective disorder, borderline personality, encounter for psychological evaluation Narrative Course Patient presents voluntarily. Physical examination and vital signs are essentially unremarkable. Patient has no medical complaints to report. Psych screen has been ordered. If the laboratory results are unremarkable, the patient will be medically cleared for psychiatric evaluation and disposition. Diagnosis Primary Impression: Encounter for psychological evaluation Condition: Stable Kady Taylor Mar 29, 2017 11:25
[2017-03-29 11:59] LABS: AUTOMATED NEUTROPHIL # 5.7 TH/MM3 (1.8-7.7); HEMATOCRIT 36.6 % (35.0-46.0); HEMOGLOBIN 12.8 GM/DL (11.6-15.3); LYMPH % 11.8 % (9.0-44.0); LYMPHOCYTE # 0.8 TH/MM3 (1.0-4.8); MEAN CELL VOLUME 89.5 FL (80.0-100.0); MEAN CORPUSCULAR HEMOGLOBIN 31.2 PG (27.0-34.0); MEAN CORPUSCULAR HGB CONC 34.9 % (32.0-36.0); MEAN PLATELET VOLUME 8.1 FL (7.0-11.0); MONO % 3.8 % (0.0-8.0); MONOCYTE # 0.3 TH/MM3 (0-0.9); NEUT % 84.4 % (16.0-70.0); PLATELET COUNT 180 TH/MM3 (150-450); RED BLOOD COUNT 4.09 MIL/MM3 (4.00-5.30); RED CELL DISTRIBUTION WIDTH 14.2 % (11.6-17.2); WHITE BLOOD COUNT 6.8 TH/MM3 (4.0-11.0)
[2017-03-29] MEDS ORDERED: INVE39IN IM (12:07)
[2017-03-29] MEDS ORDERED: [UNRECOGNIZED DRUG - OTHER] (12:10)
[2017-03-29 12:17] LABS: ACETAMINOPHEN LESS THAN 2.0 MCG/ML (10.0-30.0); ALBUMIN 3.8 GM/DL (3.4-5.0); ALT (GPT) 14 U/L (10-53); AST (GOT) 13 U/L (15-37); BICARBONATE 25.3 MEQ/L (21.0-32.0); BLOOD UREA NITROGEN 6 MG/DL (7-18); CALCIUM 8.7 MG/DL (8.5-10.1); CHLORIDE 109 MEQ/L (98-107); CREATININE 0.72 MG/DL (0.50-1.00); GLOMERULAR FILTRATION RATE 89 ML/MIN (>89); GLUCOSE,RANDOM 97 MG/DL (74-106); SODIUM (NA) 140 MEQ/L (136-145)
[2017-03-29 12:27] LABS: ALKALINE PHOSPHATASE 92 U/L (45-117); TOTAL BILIRUBIN ADULT 0.4 MG/DL (0.2-1.0); TOTAL PROTEIN 6.5 GM/DL (6.4-8.2)
--- NOTE | 2017-03-29 13:28 | PD ---
History of Present Illness Chief Complaint: Schizoaffective disorder, bipolar type Time Seen by Provider: 13:05 Travel History International Travel<30 Days: No Contact w/Intl Traveler<30days: No Known affected area: No Legal Status Legal Status: Voluntary History of Present Illness: 41-year-old female presents voluntarily to the emergency department with complaints of command auditory hallucinations. She states that the voices are "telling me to kill myself". Patient has been admitted on numerous occasions to this facility the most recent being November 28-2016. She reports that she has had multiple attempts at suicide by overdose. Her last attempt was 5 years ago. Ms. Norman resides at [facility]. She is in the FACT program. She reports being compliant with her medications and outpatient therapy. States she has been "sleeping too much and does not feel rested". She complains of feeling "depressed and anxious". She reports her appetite has been poor. Reviewed medical records and spoke with staff. Patient assessed in J pod. She is alert and oriented 4. She is slightly disheveled. Speech is clear and organized. Although she shows no overt indications of thought blocking at this time, patient has extensive history of auditory hallucinations and suicide attempts. She denies homicidal ideation, visual hallucinations, and shows no indications of being delusional. [facility] Past Medical History Narrative Medical Medically cleared by ED. Anemia: Yes Arthritis: No Asthma: No Autoimmune Disease: No Blood Disorders: No Bipolar Disorder: Yes Anxiety: Yes Depression: Yes Heart Rhythm Problems: No Cancer: No Cardiovascular Problems: No High Cholesterol: No Chemotherapy: No Chest Pain: No Congestive Heart Failure: No COPD: No Cerebrovascular Accident: No Diabetes: No Diminished Hearing: No Endocrine: No Gastrointestinal Disorders: Yes (IBS) GERD: Yes Genitourinary: No Hiatal Hernia: No Immune Disorder: No Implanted Vascular Access Dvce: No Musculoskeletal: No Neurologic: Yes Psychiatric: Yes (Schizoaffective Disorder, Bipolar Type) Reproductive: No Respiratory: No Immunizations Current: Yes Migraines: No Radiation Therapy: No Schizophrenia: Yes Seizures: No Sickle Cell Disease: No Sleep Apnea: No Thyroid Disease: No Ulcer: No ?: Not Menopausal: No : 0 Para: 0 Miscarriage: 0 : 0 Past Surgical History Abdominal Surgery: No AICD: No Arteriovenous Shunt: No Cardiac Surgery: No Ear Surgery: Yes (lazy eye surgery) Endocrine Surgery: No Eye Surgery: No Genitourinary Surgery: No Gynecologic Surgery: No Insulin Pump: No Joint Replacement: No Neurologic Surgery: No Oral Surgery: No Pacemaker: No Thoracic Surgery: No Other Surgery: Yes (L EYE/LAZY EYE) Psychiatric History Psychiatric History Extensive history of schizoaffective disorder, bipolar with multiple inpatient admissions for stabilization. Hx Psychiatric Treatment: Schizoaffective disorder, borderline personality disorder History of Inpatient Treatment: Yes Guns or firearms in home: No Social History Resides in assisted living facility. Hx Alcohol Use: No Hx Tobacco Use: Yes (1/2 ppd) Hx Substance Use: Yes (3 cigarettes/day and e cigarettes) Substance Use Type: Nicotine/Cigarettes Other Substances Used: 1ppd Hx of Substance Use Treatment: No Family Psychiatric History Family history of mental illness and suicide attempts. Allergies-Medications (Allergen,Severity, Reaction): Coded Allergies: No Known Allergies (Verified , 10/27/15) Reported Meds & Prescriptions Reported Meds & Active Scripts Active Clozaril (Clozapine) 100 Mg Tab 100 Mg PO DAILY 10 Days Clozaril (Clozapine) 100 Mg Tab 400 Mg PO HS 10 Days D 1000 (Cholecalciferol) 1,000 Unit Tab 1,000 Units PO DAILY 10 Days Reported [Ventrillex] 10 Mg DAILY Invega Sustenna Inj (Paliperidone Palmitate) 39 Mg/0.25 Ml Inj Unknown Dose IM Q28D Buspirone (Buspirone HCl) 10 Mg Tab 20 Mg PO BID Anti-Diarrheal (Loperamide HCl) 2 Mg Cap 2 Mg PO DIRECTED One capsule after each loose stool. Not to exceed 8 capsules per day. Narrative Medication Reports being compliant. Mental Status Examination Appearance: Disheveled Consciousness: Alert Orientation: x4 Motor Activity: Other (Sitting in bed) Speech: Unremarkable Language: Adequate Fund of Knowledge: Adequate Attention and Concentration: Adequate Memory: Unremarkable Mood: Sad Affect: Sad Thought Process & Associations: Intact Thought Content: Hallucinations (Auditory command "telling me to kill myself".) Hallucination Type: Auditory Delusion Type: None Suicidal Ideation: Yes Suicidal Plan: Yes (Overdose) Suicidal Intention: No Homicidal Ideation: No Homicidal Plan: No Homicidal Intention: No Insight: Adequate Judgment: Adequate [facility] Medical Decision Making Medical Record Reviewed: Yes Assessment/Plan 41-year-old single female with no history of substance abuse reports having auditory hallucinations which command her to "kill myself". Extensive history of schizoaffective disorder, bipolar disorder, and inpatient admissions for psychiatric stabilization. Patient reports being compliant with medications and outpatient therapy. She will be admitted inpatient for psychiatric stabilization and medication adjustment as necessary. Request HC Surrog/Guard Advoc?: No Orders Orders Complete Blood Count With Diff (03/29/17 10:39) Comprehensive Metabolic Panel (03/29/17 10:39) Thyroid Stimulating Hormone (03/29/17 10:39) Psych Screen (03/29/17 10:39) Drug Screen, Random Urine (03/29/17 10:39) Alcohol (Ethanol) (03/29/17 10:39) Salicylates (Aspirin) (03/29/17 10:39) Tylenol (Acetaminophen) (03/29/17 10:39) Diet Regular Basic (03/29/17 Lunch) Results Vital Signs Date Time Temp Pulse Resp B/P (MAP) Pulse Ox O2 Delivery O2 Flow Rate FiO2 03/29/17 11:16 98.0 100 20 120/73 (89) 100 Room Air 03/29/17 10:22 98.2 118 16 139/72 (94) 99 Laboratory Tests Test 03/29/17 11:20 03/29/17 11:45 White Blood Count 6.8 Red Blood Count 4.09 Hemoglobin 12.8 Hematocrit 36.6 Mean Corpuscular Volume 89.5 Mean Corpuscular Hemoglobin 31.2 Mean Corpuscular Hemoglobin Concent 34.9 Red Cell Distribution Width 14.2 Platelet Count 180 Mean Platelet Volume 8.1 Neutrophils (%) (Auto) 84.4 Lymphocytes (%) (Auto) 11.8 Monocytes (%) (Auto) 3.8 Eosinophils (%) (Auto) 0.0 Basophils (%) (Auto) 0.0 Neutrophils # (Auto) 5.7 Lymphocytes # (Auto) 0.8 Monocytes # (Auto) 0.3 Eosinophils # (Auto) 0.0 Basophils # (Auto) 0.0 CBC Comment DIFF FINAL Differential Comment Blood Urea Nitrogen 6 Creatinine 0.72 Random Glucose 97 Total Protein 6.5 Albumin 3.8 Calcium Level 8.7 Alkaline Phosphatase 92 Aspartate Amino Transf (AST/SGOT) 13 Alanine Aminotransferase (ALT/SGPT) 14 Total Bilirubin 0.4 Sodium Level 140 Potassium Level 3.7 Chloride Level 109 Carbon Dioxide Level 25.3 Anion Gap 6 Estimat Glomerular Filtration Rate 89 Thyroid Stimulating Hormone 3rd Gen 0.973 Salicylates Level LESS THAN 1.7 Acetaminophen Level LESS THAN 2.0 Ethyl Alcohol Level LESS THAN 3 Urine Opiates Screen NEG Urine Barbiturates Screen NEG Urine Amphetamines Screen NEG Urine Benzodiazepines Screen NEG Urine Cocaine Screen NEG Urine Cannabinoids Screen NEG Diagnosis Primary Impression: Schizoaffective disorder, bipolar type Admitting Information Admitting Physician Requests: Admit Condition: Stable Debora Draper Mar 29, 2017 13:28
[2017-03-29] MEDS ORDERED: MAGNESIUM HYDROXIDE SUSP 30 ML CUP PO PRN (13:30)
[2017-03-29] MEDS ORDERED: ACETAMINOPHEN 325 MG TAB PO PRN (13:30)
[2017-03-29] MEDS ORDERED: ALUMINUM/MAGNESIUM/SIMETH 30 ML CUP PO PRN (13:30)
[2017-03-29 17:05] VITALS: BP 126/91; PULSE 97; RESP 18; TEMP 97.2; O2SAT 97
[2017-03-30 05:28] VITALS: BP 94/54; PULSE 89; RESP 16; TEMP 98.5; O2SAT 96
[2017-03-30] MEDS: NICOTINE 21 MG/24 HR PATCH T-DERMAL SCH (08:55)
[2017-03-30] MEDS: REMOVE OLD PATCH T-DERMAL SCH (08:58)
[2017-03-30 10:04] LABS: BICARBONATE 26.8 MEQ/L (21.0-32.0); BLOOD UREA NITROGEN 18 MG/DL (7-18); CHLORIDE 109 MEQ/L (98-107); CHOLESTEROL 194 MG/DL (120-200); CREATININE 0.93 MG/DL (0.50-1.00); GLOMERULAR FILTRATION RATE 66 ML/MIN (>89); GLUCOSE,RANDOM 104 MG/DL (74-106); SODIUM (NA) 142 MEQ/L (136-145)
[2017-03-30 10:10] LABS: CHOLESTEROL/ HDL RATIO 3.47 RATIO; HDL CHOLESTEROL 55.9 MG/DL (40.0-60.0); LDL CHOLESTEROL 121 MG/DL (0-99); TRIGLYCERIDES 88 MG/DL (42-150)
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
[2017-03-30 14:50] LABS: HEMOGLOBIN A1C 4.6 % (4.3-6.0)
[2017-03-30] MEDS: cloZAPine 100 MG TAB PO SCH ×2 (16:13→20:50)
[2017-03-30] MEDS: busPIRone HCL 10 MG TAB PO SCH ×2 (16:15→20:50)
[2017-03-30] MEDS: diphenhydrAMINE HCL 50 MG CAP PO PRN (20:51)
[2017-03-31 05:33] VITALS: BP 106/56; PULSE 73; RESP 18; TEMP 97.6; O2SAT 98
[2017-03-31] MEDS: busPIRone HCL 10 MG TAB PO SCH ×2 (08:40→21:07)
[2017-03-31] MEDS: cloZAPine 100 MG TAB PO SCH ×2 (08:41→21:07)
[2017-03-31] MEDS: CHOLECALCIFEROL (VIT D3) 1000 UNIT TAB PO SCH (08:41)
[2017-03-31] MEDS: NICOTINE 21 MG/24 HR PATCH T-DERMAL SCH (08:42)
[2017-03-31] MEDS: REMOVE OLD PATCH T-DERMAL SCH (08:42)
--- NOTE | 2017-03-31 13:12 | HHI.PYPN ---
Subjective Chief Complaint: increased depression auditory hallucinations of command type suicidality Remarks Pt seen and discussed with staff. She reports that she is still experiencing command AH instructing her to kill self. "I don't want to do it though" She has been compliant and engaging in activities on unit. she states that she is trying to distract self from the AH. No medication side effects. Mental Status Examination Appearance: Appropriate, Disheveled Consciousness: Alert Orientation: x4 Motor Activity: Normal gait Speech: Unremarkable Language: Adequate Fund of Knowledge: Adequate Attention and Concentration: Adequate Memory: Unremarkable Mood: Sad Affect: Other (slight decrease range of motion intensity) Thought Process & Associations: Intact Thought Content: Hallucinations (Auditory command "telling me to kill myself".) Hallucination Type: Auditory Delusion Type: None Suicidal Ideation: Yes Suicidal Plan: No Suicidal Intention: No Homicidal Ideation: No Homicidal Plan: No Homicidal Intention: No Insight: Adequate Judgment: Adequate Results Vitals/IOs Vital Signs Date Time Temp Pulse Resp B/P (MAP) Pulse Ox O2 Delivery O2 Flow Rate FiO2 03/31/17 05:33 97.6 73 18 106/56 (73) 98 03/29/17 11:16 Room Air Assessment & Plan Problem List: (1) Schizoaffective disorder, bipolar type ICD Codes: F25.0 - Schizoaffective disorder, bipolar type Status: Chronic (2) borderline personality traits Status: Chronic Assessment & Plan Continue current tx plan. Estimated LOS: days Justification for Cont. Inpt. impairments in safety and reality testing Request HC Surrog/Guard Advoc?: Cynthia Rodrigez MD Mar 31, 2017 13:11
[2017-03-31] MEDS: hydrOXYzine HCL 50 MG TAB PO PRN (16:53)
[2017-03-31 18:18] VITALS: BP 122/73; PULSE 102; RESP 15; TEMP 98.3; O2SAT 99
[2017-03-31] MEDS: diphenhydrAMINE HCL 50 MG CAP PO PRN (22:23)
[2017-04-01 05:31] VITALS: BP 114/72; PULSE 77; RESP 18; TEMP 98.4; O2SAT 98
[2017-04-01] MEDS: REMOVE OLD PATCH T-DERMAL SCH (09:00)
[2017-04-01] MEDS ORDERED: PATIENT OWN MEDICATION PO SCH (09:00)
[2017-04-01] MEDS: CHOLECALCIFEROL (VIT D3) 1000 UNIT TAB PO SCH (09:07)
[2017-04-01] MEDS: busPIRone HCL 10 MG TAB PO SCH ×2 (09:07→20:25)
[2017-04-01] MEDS: cloZAPine 100 MG TAB PO SCH ×2 (09:07→20:25)
[2017-04-01] MEDS: NICOTINE 21 MG/24 HR PATCH T-DERMAL SCH (09:09)
[2017-04-01] MEDS: hydrOXYzine HCL 50 MG TAB PO PRN (15:27)
--- NOTE | 2017-04-01 17:02 | HHI.PYPN ---
Subjective Chief Complaint: increased depression auditory hallucinations of command type suicidality Remarks Pt seen and discussed with staff. She reports that she remains depressed with AH but anxiety has decreased today. She is compliant with medications and denies side effects. She reports that AH persist Mental Status Examination Appearance: Appropriate, Disheveled Consciousness: Alert Orientation: x4 Motor Activity: Normal gait Speech: Unremarkable Language: Adequate Fund of Knowledge: Adequate Attention and Concentration: Adequate Memory: Unremarkable Mood: Sad Affect: Other (slight decrease range of motion intensity) Thought Process & Associations: Intact Thought Content: Hallucinations (Auditory command "telling me to kill myself".) Hallucination Type: Auditory Delusion Type: None Suicidal Ideation: Yes Suicidal Plan: No Suicidal Intention: No Homicidal Ideation: No Homicidal Plan: No Homicidal Intention: No Insight: Fair Judgment: Adequate Results Vitals/IOs Vital Signs Date Time Temp Pulse Resp B/P (MAP) Pulse Ox O2 Delivery O2 Flow Rate FiO2 04/01/17 05:31 98.4 77 18 114/72 (86) 98 03/29/17 11:16 Room Air Assessment & Plan Problem List: (1) Schizoaffective disorder, bipolar type ICD Codes: F25.0 - Schizoaffective disorder, bipolar type Status: Chronic (2) borderline personality traits Status: Chronic Assessment & Plan Continue current tx plan. Estimated LOS: days Justification for Cont. Inpt. impairments in reality testing Request HC Surrog/Guard Advoc?: Cynthia Rodrigez MD Apr 01, 2017 17:01
[2017-04-01 17:09] VITALS: BP 125/83; PULSE 107; RESP 18; TEMP 98
[2017-04-01] MEDS: LOPERAMIDE HCL 2 MG CAP PO PRN (18:20)
[2017-04-02 05:54] VITALS: BP 95/52; PULSE 72; RESP 16; TEMP 97.9
[2017-04-02] MEDS: CHOLECALCIFEROL (VIT D3) 1000 UNIT TAB PO SCH (08:24)
[2017-04-02] MEDS: cloZAPine 100 MG TAB PO SCH ×2 (08:24→20:44)
[2017-04-02] MEDS: busPIRone HCL 10 MG TAB PO SCH ×2 (08:24→20:43)
[2017-04-02] MEDS: hydrOXYzine HCL 50 MG TAB PO PRN ×2 (08:25→16:46)
[2017-04-02] MEDS: REMOVE OLD PATCH T-DERMAL SCH (08:25)
[2017-04-02] MEDS: NICOTINE 21 MG/24 HR PATCH T-DERMAL SCH (08:25)
[2017-04-02] MEDS: LOPERAMIDE HCL 2 MG CAP PO PRN (08:35)
--- NOTE | 2017-04-02 16:01 | HHI.PYPN ---
Subjective Chief Complaint: increased depression auditory hallucinations of command type suicidality Remarks Patient seen in her room with nurse Burris, chart review, patient discussed with nurse, patient is somewhat anxious word look on her face. States the voices are persistent telling her to kill herself. She is frightened about this at the present time though does feel safe here on the unit. It appears the fact he the patient on viibryd 10 mg daily. Is not on our formulary. Staff will bring supply and tomorrow. However will increase a.m. Clozaril to 150 mg Review of Systems Except as stated in HPI: all other systems reviewed are Neg Mental Status Examination Appearance: Appropriate, Disheveled Consciousness: Alert Orientation: x4 Motor Activity: Normal gait Speech: Unremarkable Language: Adequate Fund of Knowledge: Adequate Attention and Concentration: Adequate Memory: Unremarkable Mood: Sad Affect: Other (slight decrease range of motion intensity) Thought Process & Associations: Intact Thought Content: Hallucinations (Auditory command "telling me to kill myself".) Hallucination Type: Auditory Delusion Type: None Suicidal Ideation: Yes Suicidal Plan: No Suicidal Intention: No Homicidal Ideation: No Homicidal Plan: No Homicidal Intention: No Insight: Fair Judgment: Adequate Results Vitals/IOs Vital Signs Date Time Temp Pulse Resp B/P (MAP) Pulse Ox O2 Delivery O2 Flow Rate FiO2 04/02/17 05:54 97.9 72 16 95/52 (66) 04/01/17 05:31 98 03/29/17 11:16 Room Air Assessment & Plan Problem List: (1) Schizoaffective disorder, bipolar type ICD Codes: F25.0 - Schizoaffective disorder, bipolar type Status: Chronic (2) borderline personality traits Status: Chronic Assessment & Plan Estimated LOS: days patient continues depressed and psychotic see medication adjustment above. Hopefully staff will bring in patient's of Viibryd tomorrow Justification for Cont. Inpt. At this time patient decompensated placed in a lower level of care Discharge Planning Return to [facility] Request HC Surrog/Guard Advoc?: Nico Staton MD Apr 02, 2017 16:01
[2017-04-02 18:26] VITALS: BP 130/84; PULSE 109; RESP 16; TEMP 97.1; O2SAT 99
[2017-04-03 05:13] VITALS: BP 100/53; PULSE 75; RESP 17; TEMP 97.7; O2SAT 98
[2017-04-03] MEDS: REMOVE OLD PATCH T-DERMAL SCH (08:24)
[2017-04-03] MEDS: VILAZODONE 10 MG PO SCH (08:24)
[2017-04-03] MEDS: NICOTINE 21 MG/24 HR PATCH T-DERMAL SCH (08:24)
[2017-04-03] MEDS: busPIRone HCL 10 MG TAB PO SCH ×2 (08:26→20:32)
[2017-04-03] MEDS: cloZAPine 100 MG TAB PO SCH ×2 (08:26→20:33)
[2017-04-03] MEDS: CHOLECALCIFEROL (VIT D3) 1000 UNIT TAB PO SCH (08:26)
[2017-04-03] MEDS: LOPERAMIDE HCL 2 MG CAP PO PRN (08:35)
--- NOTE | 2017-04-03 15:22 | HHI.PYPN ---
Subjective Chief Complaint: increased depression auditory hallucinations of command type suicidality Remarks Patient seen in [place] with nurse Emerald, chart review, patient discussed with nurse. Patient calm cooperative pleasant with me. She still voices auditory hallucinations that are threatening and command telling her herself. Patient is able to control his feelings at this time though she still has suicidal ideation. For now continue treatment Review of Systems Except as stated in HPI: all other systems reviewed are Neg Mental Status Examination Appearance: Appropriate, Disheveled Consciousness: Alert Orientation: x4 Motor Activity: Normal gait Speech: Unremarkable Language: Adequate Fund of Knowledge: Adequate Attention and Concentration: Adequate Memory: Unremarkable Mood: Sad Affect: Other (slight decrease range of motion intensity) Thought Process & Associations: Intact Thought Content: Hallucinations (Auditory command "telling me to kill myself".) Hallucination Type: Auditory Delusion Type: None Suicidal Ideation: Yes Suicidal Plan: No Suicidal Intention: No Homicidal Ideation: No Homicidal Plan: No Homicidal Intention: No Insight: Fair Judgment: Adequate Results Vitals/IOs Vital Signs Date Time Temp Pulse Resp B/P (MAP) Pulse Ox O2 Delivery O2 Flow Rate FiO2 04/03/17 05:13 97.7 75 17 100/53 (69) 98 Assessment & Plan Problem List: (1) Schizoaffective disorder, bipolar type ICD Codes: F25.0 - Schizoaffective disorder, bipolar type Status: Chronic (2) borderline personality traits Status: Chronic Assessment & Plan Estimated LOS: days patient continue psychotic with command hallucinations telling her to kill herself. Patient able contracted to no harm. For now continue treatment Justification for Cont. Inpt. At this time patient will decompensate and placed in a lower level of care Discharge Planning Probable return to her [facility] Request HC Surrog/Guard Advoc?: No Nico Sanchez MD Apr 03, 2017 15:22
[2017-04-03] MEDS: hydrOXYzine HCL 50 MG TAB PO PRN (16:17)
[2017-04-03 18:26] VITALS: BP 112/56; PULSE 74; RESP 16; TEMP 98.1; O2SAT 99
[2017-04-04 06:35] VITALS: BP 96/62; PULSE 82; RESP 17; TEMP 98.4; O2SAT 96
[2017-04-04] MEDS: cloZAPine 100 MG TAB PO SCH ×2 (08:32→21:15)
[2017-04-04] MEDS: CHOLECALCIFEROL (VIT D3) 1000 UNIT TAB PO SCH (08:32)
[2017-04-04] MEDS: busPIRone HCL 10 MG TAB PO SCH ×2 (08:32→21:14)
[2017-04-04] MEDS: VILAZODONE 10 MG PO SCH (08:35)
[2017-04-04] MEDS: NICOTINE 21 MG/24 HR PATCH T-DERMAL SCH (08:38)
[2017-04-04] MEDS: REMOVE OLD PATCH T-DERMAL SCH (08:38)
--- NOTE | 2017-04-04 09:19 | PD.TTN ---
Patient Problems 1. Discharge planning 2. Medication compliance 3. Knowledge deficit 4. Lack of coping skills Progress Toward Goals Provider Present: Dr. Breanna Sanchez Provider Input: 04/04 Started meds from [facility], still alittle labile Psychiatric Counselors Present: Ellen Meredith LCSW Psych Therapist Input: 04/04 still voices, calm likes attention to journal, FACT team Kar hicks came by to visit. Group Spec/RT/OT/ZAMBRANO Present: JUAN MANUEL Land Group Spec/RT/OT/ZAMBRANO Input: 04/04 Pt. has not been attending groups for the last couple days. Juan M Cooper Apr 04, 2017 09:19
--- NOTE | 2017-04-04 12:02 | HHI.PYPN ---
Subjective Chief Complaint: increased depression auditory hallucinations of command type suicidality Remarks Patient seen today in her room with nurse Mike, chart review, patient discussed with nurse. Patient continues calm cooperative but somewhat anxious stating the auditory hallucinations persist but slightly softer today. There is some worry about her "getting better", I reassured her processes going on appropriately. She is able to contracted to no harm. Though she still has some vague suicidal ideation. For now continue treatment Review of Systems Except as stated in HPI: all other systems reviewed are Neg Mental Status Examination Appearance: Appropriate, Disheveled Consciousness: Alert Orientation: x4 Motor Activity: Normal gait Speech: Unremarkable Language: Adequate Fund of Knowledge: Adequate Attention and Concentration: Adequate Memory: Unremarkable Mood: Sad Affect: Other (slight decrease range of motion intensity) Thought Process & Associations: Intact Thought Content: Hallucinations (Auditory command "telling me to kill myself".) Hallucination Type: Auditory Delusion Type: None Suicidal Ideation: Yes Suicidal Plan: No Suicidal Intention: No Homicidal Ideation: No Homicidal Plan: No Homicidal Intention: No Insight: Fair Judgment: Adequate Results Vitals/IOs Vital Signs Date Time Temp Pulse Resp B/P (MAP) Pulse Ox O2 Delivery O2 Flow Rate FiO2 04/04/17 06:35 98.4 82 17 96/62 (73) 96 Assessment & Plan Problem List: (1) Schizoaffective disorder, bipolar type ICD Codes: F25.0 - Schizoaffective disorder, bipolar type Status: Chronic (2) borderline personality traits Status: Chronic Assessment & Plan Estimated LOS: days patient continue psychotic with auditory hallucinations of a somewhat command nature. The. We softening somewhat. Patient remains vaguely suicidal those able contracted to no harm. For now continue treatment Justification for Cont. Inpt. At this time patient decompensate placed a lower level of care Discharge Planning To return to her [facility] Request HC Surrog/Guard Advoc?: No Nico Sanchez MD Apr 04, 2017 12:02
[2017-04-04 18:26] VITALS: BP 127/79; PULSE 102; RESP 18; TEMP 98.3; O2SAT 100
[2017-04-05 05:45] VITALS: BP 94/66; PULSE 78; RESP 18; TEMP 97.5; O2SAT 96
[2017-04-05] MEDS: cloZAPine 100 MG TAB PO SCH ×2 (08:21→20:24)
[2017-04-05] MEDS: CHOLECALCIFEROL (VIT D3) 1000 UNIT TAB PO SCH (08:21)
[2017-04-05] MEDS: busPIRone HCL 10 MG TAB PO SCH ×2 (08:21→20:24)
[2017-04-05] MEDS: VILAZODONE 10 MG PO SCH (08:36)
[2017-04-05] MEDS: LOPERAMIDE HCL 2 MG CAP PO PRN (08:38)
[2017-04-05] MEDS: REMOVE OLD PATCH T-DERMAL SCH (08:40)
[2017-04-05] MEDS: NICOTINE 21 MG/24 HR PATCH T-DERMAL SCH (08:41)
--- NOTE | 2017-04-05 12:15 | HHI.PYPN ---
Subjective Chief Complaint: increased depression auditory hallucinations of command type suicidality Remarks Patient seen in her room with nurse Gudelia, chart review, patient discussed with nurse. Patient continues somewhat frightened look on her face over she did state the voices continued to diminish somewhat she now states suicidality is also diminishing. Review of Systems Except as stated in HPI: all other systems reviewed are Neg Mental Status Examination Appearance: Appropriate, Disheveled Consciousness: Alert Orientation: x4 Motor Activity: Normal gait Speech: Unremarkable Language: Adequate Fund of Knowledge: Adequate Attention and Concentration: Adequate Memory: Unremarkable Mood: Sad Affect: Other (slight decrease range of motion intensity) Thought Process & Associations: Intact Thought Content: Hallucinations (Auditory command "telling me to kill myself".) Hallucination Type: Auditory Delusion Type: None Suicidal Ideation: Yes Suicidal Plan: No Suicidal Intention: No Homicidal Ideation: No Homicidal Plan: No Homicidal Intention: No Insight: Fair Judgment: Adequate Results Vitals/IOs Vital Signs Date Time Temp Pulse Resp B/P (MAP) Pulse Ox O2 Delivery O2 Flow Rate FiO2 04/05/17 05:45 97.5 78 18 94/66 (75) 96 Assessment & Plan Problem List: (1) Schizoaffective disorder, bipolar type ICD Codes: F25.0 - Schizoaffective disorder, bipolar type Status: Chronic (2) borderline personality traits Status: Chronic Assessment & Plan Estimated LOS: days patient psychosis continues to resolve, her depression suicidality are slowly lifting also Justification for Cont. Inpt. At this time patient decompensated placed in the lower level of care Discharge Planning Return to her intermediate Request HC Surrog/Guard Advoc?: Nico Staton MD Apr 05, 2017 12:15
[2017-04-05] MEDS: hydrOXYzine HCL 50 MG TAB PO PRN (13:00)
[2017-04-05 17:47] VITALS: BP 132/57; PULSE 99; RESP 20; TEMP 98.3; O2SAT 99
[2017-04-06 05:27] VITALS: BP 96/54; PULSE 79; RESP 16; TEMP 98.2; O2SAT 96
[2017-04-06] MEDS: NICOTINE 21 MG/24 HR PATCH T-DERMAL SCH (08:17)
[2017-04-06] MEDS: cloZAPine 100 MG TAB PO SCH ×2 (08:17→20:35)
[2017-04-06] MEDS: busPIRone HCL 10 MG TAB PO SCH ×2 (08:17→20:34)
[2017-04-06] MEDS: CHOLECALCIFEROL (VIT D3) 1000 UNIT TAB PO SCH (08:17)
[2017-04-06] MEDS: LOPERAMIDE HCL 2 MG CAP PO PRN (08:18)
[2017-04-06] MEDS: REMOVE OLD PATCH T-DERMAL SCH (08:21)
[2017-04-06] MEDS: VILAZODONE 10 MG PO SCH (09:00)
--- NOTE | 2017-04-06 13:29 | HHI.PYPN ---
Subjective Chief Complaint: increased depression auditory hallucinations of command type suicidality Remarks Patient seen in her room before October chart review, patient discussed with nurse. Patient continues with vague suicidal ideation but appears less intense than prior. The voices are also starting to taper. She is compliant medication. For now continue treatment consider discharge first part next week Review of Systems Except as stated in HPI: all other systems reviewed are Neg Mental Status Examination Appearance: Appropriate, Disheveled Consciousness: Alert Orientation: x4 Motor Activity: Normal gait Speech: Unremarkable Language: Adequate Fund of Knowledge: Adequate Attention and Concentration: Adequate Memory: Unremarkable Mood: Sad Affect: Other (slight decrease range of motion intensity) Thought Process & Associations: Intact Thought Content: Hallucinations (Auditory command "telling me to kill myself".) Hallucination Type: Auditory Delusion Type: None Suicidal Ideation: Yes Suicidal Plan: No Suicidal Intention: No Homicidal Ideation: No Homicidal Plan: No Homicidal Intention: No Insight: Fair Judgment: Adequate Results Vitals/IOs Vital Signs Date Time Temp Pulse Resp B/P (MAP) Pulse Ox O2 Delivery O2 Flow Rate FiO2 04/06/17 05:27 98.2 79 16 96/54 (68) 96 Assessment & Plan Problem List: (1) Schizoaffective disorder, bipolar type ICD Codes: F25.0 - Schizoaffective disorder, bipolar type Status: Chronic (2) borderline personality traits Status: Chronic Assessment & Plan Estimated LOS: days patient's psychosis suicidality is slowly resolving. She is compliant with medication. Consider discharge first part next week Justification for Cont. Inpt. At this time patient decompensate and placed a lower level of care Discharge Planning Consider discharge early next week to her residential Request HC Surrog/Guard Advoc?: Ncio Staton MD Apr 06, 2017 13:29
[2017-04-06 17:42] VITALS: BP 124/64; PULSE 105; RESP 16; TEMP 98.3; O2SAT 97
[2017-04-07 05:38] VITALS: BP 113/56; PULSE 79; RESP 16; TEMP 97.4; O2SAT 98
[2017-04-07] MEDS: busPIRone HCL 10 MG TAB PO SCH ×2 (08:46→21:08)
[2017-04-07] MEDS: LOPERAMIDE HCL 2 MG CAP PO PRN (08:46)
[2017-04-07] MEDS: VILAZODONE 10 MG PO SCH (08:46)
[2017-04-07] MEDS: cloZAPine 100 MG TAB PO SCH ×2 (08:47→21:09)
[2017-04-07] MEDS: REMOVE OLD PATCH T-DERMAL SCH (08:47)
[2017-04-07] MEDS: NICOTINE 21 MG/24 HR PATCH T-DERMAL SCH (08:47)
[2017-04-07] MEDS: CHOLECALCIFEROL (VIT D3) 1000 UNIT TAB PO SCH (08:47)
--- NOTE | 2017-04-07 14:09 | HHI.PYPN ---
Subjective Chief Complaint: increased depression auditory hallucinations of command type suicidality Remarks Patient was seen and case discussed with nursing. Patient continues to improve. She is bright and excited today that her hallucinations are completely gone. She is looking forward to discharge in gone back to work. Compliant with medications Mental Status Examination Appearance: Appropriate, Disheveled Consciousness: Alert Orientation: x4 Motor Activity: Normal gait Speech: Unremarkable Language: Adequate Fund of Knowledge: Adequate Attention and Concentration: Adequate Memory: Unremarkable Mood: Sad Affect: Other (slight decrease range of motion intensity) Thought Process & Associations: Intact Thought Content: Appropriate Hallucination Type: None Delusion Type: None Suicidal Ideation: Yes Suicidal Plan: No Suicidal Intention: No Homicidal Ideation: No Homicidal Plan: No Homicidal Intention: No Insight: Fair Judgment: Adequate Results Vitals/IOs Vital Signs Date Time Temp Pulse Resp B/P (MAP) Pulse Ox O2 Delivery O2 Flow Rate FiO2 04/07/17 05:38 97.4 79 16 113/56 (75) 98 Assessment & Plan Problem List: (1) Schizoaffective disorder, bipolar type ICD Codes: F25.0 - Schizoaffective disorder, bipolar type Status: Chronic (2) borderline personality traits Status: Chronic Assessment & Plan Continue current treatment plan Justification for Cont. Inpt. Patient would decompensate in a less restrictive setting Request HC Surrog/Guard Advoc?: No He Abrams DO Apr 07, 2017 14:09
[2017-04-07 18:24] VITALS: BP 109/68; PULSE 98; RESP 20; TEMP 97.4; O2SAT 98
[2017-04-08] MEDS: LOPERAMIDE HCL 2 MG CAP PO PRN ×6 (03:43→21:03)
[2017-04-08 04:54] VITALS: BP 127/67; PULSE 80; RESP 16; TEMP 97.6; O2SAT 97
[2017-04-08] MEDS: cloZAPine 100 MG TAB PO SCH ×2 (08:46→21:03)
[2017-04-08] MEDS: busPIRone HCL 10 MG TAB PO SCH ×2 (08:46→21:03)
[2017-04-08] MEDS: REMOVE OLD PATCH T-DERMAL SCH (08:47)
[2017-04-08] MEDS: NICOTINE 21 MG/24 HR PATCH T-DERMAL SCH (08:47)
[2017-04-08] MEDS: VILAZODONE 10 MG PO SCH (08:47)
[2017-04-08] MEDS: CHOLECALCIFEROL (VIT D3) 1000 UNIT TAB PO SCH (08:48)
--- NOTE | 2017-04-08 10:41 | HHI.PYPN ---
Subjective Chief Complaint: increased depression auditory hallucinations of command type suicidality Remarks Patient was seen and case discussed with nursing. Patient continues to state that her hallucinations are gone. Per nursing no bizarre behavior thoughts were noticed. Compliant with her medications and behaving well on the unit. Denies suicidal or homicidal ideation intent or plan Mental Status Examination Appearance: Appropriate, Disheveled Consciousness: Alert Orientation: x4 Motor Activity: Normal gait Speech: Unremarkable Language: Adequate Fund of Knowledge: Adequate Attention and Concentration: Adequate Memory: Unremarkable Mood: Sad Affect: Other (slight decrease range of motion intensity) Thought Process & Associations: Intact Thought Content: Appropriate Hallucination Type: None Delusion Type: None Suicidal Ideation: No Suicidal Plan: No Suicidal Intention: No Homicidal Ideation: No Homicidal Plan: No Homicidal Intention: No Insight: Fair Judgment: Adequate Results Vitals/IOs Vital Signs Date Time Temp Pulse Resp B/P (MAP) Pulse Ox O2 Delivery O2 Flow Rate FiO2 04/08/17 04:54 97.6 80 16 127/67 (87) 97 Assessment & Plan Problem List: (1) Schizoaffective disorder, bipolar type ICD Codes: F25.0 - Schizoaffective disorder, bipolar type Status: Chronic (2) borderline personality traits Status: Chronic Assessment & Plan Continue current treatment plan Justification for Cont. Inpt. Patient will decompensate in a less restrictive setting Request HC Surrog/Guard Advoc?: He Eden DO Apr 08, 2017 10:41
[2017-04-08 16:54] VITALS: BP 132/74; PULSE 82; RESP 18; TEMP 98.4; O2SAT 96
[2017-04-09 05:33] VITALS: BP 110/64; PULSE 73; RESP 16; TEMP 97.6; O2SAT 97
[2017-04-09] MEDS: REMOVE OLD PATCH T-DERMAL SCH (09:00)
[2017-04-09] MEDS: NICOTINE 21 MG/24 HR PATCH T-DERMAL SCH (09:00)
[2017-04-09] MEDS: VILAZODONE 10 MG PO SCH (09:05)
[2017-04-09] MEDS: CHOLECALCIFEROL (VIT D3) 1000 UNIT TAB PO SCH (09:06)
[2017-04-09] MEDS: busPIRone HCL 10 MG TAB PO SCH (09:06)
[2017-04-09] MEDS: cloZAPine 100 MG TAB PO SCH (09:06)
[2017-04-09] MEDS ORDERED: BUSP10TA PO (10:15)
[2017-04-09] MEDS ORDERED: CLOZ100T3 PO (10:15)
[2017-04-09] MEDS ORDERED: CLOZ50TA PO (10:15)
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
--- NOTE | 2017-04-09 11:56 | PD.TTN ---
Patient Problems 1. Discharge planning 2. Medication compliance 3. Knowledge deficit 4. Lack of coping skills Progress Toward Goals Provider Present: Dr. Breanna Sanchez Provider Input: 04/09/17 Patient has improved ready for discharge today 04/04 Started meds from [facility], still alittle labile Psychiatric Counselors Present: Ellen Meredith LCSW Psych Therapist Input: 04/09/17 patient engages and has been opebn to talk and compliant with meds Fact team works closely with her and will pick her up when ready 04/04 still voices, calm likes attention to journal, FACT team Kar hicks came by to visit. Group Spec/RT/OT/ZAMBRANO Present: JUAN MANUEL [employer] Group Spec/RT/OT/ZAMBRANO Input: 04/09/17 Did not attend many groups and isolated to self often and in bed most of the time 04/04 Pt. has not been attending groups for the last couple days. Ellen Meredith LCSW Apr 09, 2017 11:56
== END 2017-04-09 13:55 | disposition short-term general hospital (02) | DRG 885 ==
LOC: NEPD 10:20 → NEDA 13:35 → H260 16:46
PROVIDERS: ADMIT Psychiatry & Neurology Psychiatry; ATTEND Psychiatry & Neurology Psychiatry
DX: F25.0 Schizoaffective disorder, bipolar type (principal); R45.851 Suicidal ideations; F60.3 Borderline personality disorder; K58.9 Irritable bowel syndrome, unspecified; F41.9 Anxiety disorder, unspecified; K21.9 Gastro-esophageal reflux disease without esophagitis; Z62.810 Personal history of physical and sexual abuse in childhood; Z91.5 Personal history of self-harm; Z81.8 Family history of other mental and behavioral disorders; Z72.0 Tobacco use
CPT/HCPCS: 80048; 80053; 80061; 80307; 83036; 84443; 85025; 99285; Q0163

== ENCOUNTER 2017-05-07 11:35 | Inpatient (IN) | payer MEDICARE ==
[~2017-05-07] VITALS: Ht 160 cm; Wt 62.4 kg
[~2017-05-07 11:35] MED LIST changes: -CLOZ100T PO; +CLOZ100T3 PO; +CLOZ50TA PO; -FLUO20CA12 PO; +INVE39IN IM; -RISP50P IM; +[UNRECOGNIZED DRUG - OTHER]
[2017-05-07 11:54] VITALS: BP 125/70; PULSE 110; RESP 18; TEMP 97.7; O2SAT 99
[2017-05-07 12:53] LABS: BASOPHIL % 0.4 % (0.0-2.0); HEMATOCRIT 40.4 % (35.0-46.0); HEMOGLOBIN 13.7 GM/DL (11.6-15.3); LYMPH % 13.9 % (9.0-44.0); LYMPHOCYTE # 0.8 TH/MM3 (1.0-4.8); MEAN CELL VOLUME 90.3 FL (80.0-100.0); MEAN CORPUSCULAR HEMOGLOBIN 30.7 PG (27.0-34.0); MEAN CORPUSCULAR HGB CONC 33.9 % (32.0-36.0); MEAN PLATELET VOLUME 8.4 FL (7.0-11.0); MONO % 3.8 % (0.0-8.0); MONOCYTE # 0.2 TH/MM3 (0-0.9); NEUT % 81.9 % (16.0-70.0); PLATELET COUNT 185 TH/MM3 (150-450); RED BLOOD COUNT 4.47 MIL/MM3 (4.00-5.30); RED CELL DISTRIBUTION WIDTH 14.5 % (11.6-17.2); WHITE BLOOD COUNT 6.1 TH/MM3 (4.0-11.0)
[2017-05-07 13:06] LABS: BILIRUBIN, URINE NEG (NEG); BLOOD, URINE NEG (NEG); GLUCOSE,URINE NEG (NEG); KETONE, URINE NEG (NEG); NITRITE,URINE NEG (NEG); SQUAMOUS EPITHELIAL CELL URINE 1 /hpf (0-5); URINE COLOR LIGHT-YELLOW (YELLW/STRAW); URINE LEUKOCYTE ESTERASE NEG (NEG)
[2017-05-07 13:18] LABS: ALT (GPT) 14 U/L (10-53); AST (GOT) 11 U/L (15-37); BICARBONATE 22.6 MEQ/L (21.0-32.0); BLOOD UREA NITROGEN 7 MG/DL (7-18); CHLORIDE 110 MEQ/L (98-107); CREATININE 0.76 MG/DL (0.50-1.00); GLOMERULAR FILTRATION RATE 83 ML/MIN (>89); GLUCOSE,RANDOM 88 MG/DL (74-106); SODIUM (NA) 143 MEQ/L (136-145)
[2017-05-07 13:28] LABS: ALKALINE PHOSPHATASE 86 U/L (45-117); TOTAL BILIRUBIN ADULT 0.5 MG/DL (0.2-1.0); TOTAL PROTEIN 6.8 GM/DL (6.4-8.2)
[2017-05-07 13:34] VITALS: BP 129/62; PULSE 92; RESP 18; O2SAT 99
[2017-05-07] MEDS ORDERED: VIIB20TA PO (14:32)
--- NOTE | 2017-05-07 14:54 | PD ---
HPI Chief Complaint: Psychiatric Symptoms Time Seen by Provider: 14:36 Travel History International Travel<30 days: No Contact w/Intl Traveler<30days: No Traveled to known affect area: No History of Present Illness HPI 41-year-old female with long psychiatric history presents to the emergency department voluntarily for hearing increased voices in her head telling her to kill herself, and that she is on worthy of living. She denies any acute medical issues however. She does have history of chronic irritable bowel syndrome, and she is requesting Imodium as needed. She has no other medical concerns. She has no known drug allergies. PFSH Past Medical History Anemia: Yes Arthritis: No Asthma: No Autoimmune Disease: No Blood Disorders: No Bipolar Disorder: Yes Anxiety: Yes Depression: Yes Heart Rhythm Problems: No Cancer: No Cardiovascular Problems: No High Cholesterol: No Chemotherapy: No Chest Pain: No Congestive Heart Failure: No COPD: No Cerebrovascular Accident: No Diabetes: No Diminished Hearing: No Endocrine: No Gastrointestinal Disorders: Yes (IBS) GERD: Yes Genitourinary: No Headaches: No Hiatal Hernia: No Immune Disorder: No Implanted Vascular Access Dvce: No Kidney Stones: No Musculoskeletal: No Neurologic: Yes Psychiatric: Yes Reproductive: No Respiratory: No Immunizations Current: Yes Migraines: No Radiation Therapy: No Renal Failure: No Schizophrenia: Yes Seizures: No Sickle Cell Disease: No Sleep Apnea: No Thyroid Disease: No Ulcer: No Tetanus Vaccination: > 5 Years ?: Not LMP: 04/10/17 Menopausal: No : 0 Para: 0 Miscarriage: 0 : 0 Past Surgical History Abdominal Surgery: No AICD: No Arteriovenous Shunt: No Cardiac Surgery: No Ear Surgery: Yes (lazy eye surgery) Endocrine Surgery: No Eye Surgery: No Genitourinary Surgery: No Gynecologic Surgery: No Insulin Pump: No Joint Replacement: No Neurologic Surgery: No Oral Surgery: No Pacemaker: No Thoracic Surgery: No Other Surgery: Yes (L EYE/LAZY EYE) Social History Alcohol Use: No Tobacco Use: Yes Substance Use: No Allergies-Medications (Allergen,Severity, Reaction): Coded Allergies: No Known Allergies (Verified , 10/27/15) Reported Meds & Prescriptions Reported Meds & Active Scripts Active Clozapine 50 Mg Tab 50 Mg PO DAILY Clozapine 100 Mg Tab 100 Mg PO 1 IN A.M. 4 AT HS Buspirone (Buspirone HCl) 10 Mg Tab 20 Mg PO BID Reported Viibryd (Vilazodone) 20 Mg Tab 20 Mg PO DAILY Invega Sustenna Inj (Paliperidone Palmitate) 39 Mg/0.25 Ml Inj Unknown Dose IM Q28D Anti-Diarrheal (Loperamide HCl) 2 Mg Cap 2 Mg PO DIRECTED One capsule after each loose stool. Not to exceed 8 capsules per day. Review of Systems Except as stated in HPI: all other systems reviewed are Neg General / Constitutional: No: Fever Eyes: No: Visual changes HENT: No: Headaches Cardiovascular: No: Chest Pain or Discomfort Respiratory: No: Shortness of Breath Gastrointestinal: No: Abdominal Pain Genitourinary: No: Dysuria Musculoskeletal: No: Pain Skin: No Rash Neurologic: No: Weakness Psychiatric: Positive: Anxiety, Depression, Suicidal Ideations, Mood Disorder, No: Homicidal Ideation Endocrine: No: Polydipsia Hematologic/Lymphatic: No: Easy Bruising Physical Exam Narrative GENERAL: Patient appears in no acute distress. SKIN: Warm and dry. Normal color. Normal turgor. HEAD: Atraumatic. Normocephalic. EYES: Pupils equal and round. No scleral icterus. No injection or drainage. ENT: No nasal bleeding or discharge. Mucous membranes pink and moist. Pharynx is clear. Airway is patent. NECK: Trachea midline. Supple and nontender. CARDIOVASCULAR: Regular rate and rhythm. RESPIRATORY: No accessory muscle use. Clear to auscultation. Breath sounds equal bilaterally. GASTROINTESTINAL: Abdomen soft, non-tender, nondistended. Hepatic and splenic margins not palpable. MUSCULOSKELETAL: Extremities without clubbing, cyanosis, or edema. No obvious deformities. NEUROLOGICAL: Awake and alert. No obvious cranial nerve deficits. Motor grossly within normal limits. Five out of 5 muscle strength in the arms and legs. Normal speech. PSYCHIATRIC: Appropriate mood and affect; insight and judgment normal. Data Data Last Documented VS Vital Signs Date Time Temp Pulse Resp B/P (MAP) Pulse Ox O2 Delivery O2 Flow Rate FiO2 05/07/17 13:34 92 18 129/62 (84) 99 Room Air 05/07/17 11:54 97.7 Orders Orders Complete Blood Count With Diff (05/07/17 11:57) Comprehensive Metabolic Panel (05/07/17 11:57) Thyroid Stimulating Hormone (05/07/17 11:57) Urinalysis - C+S If Indicated (05/07/17 11:57) Ed Urine Pregnancytest Poc (05/07/17 11:57) Psych Screen (05/07/17 11:57) Drug Screen, Random Urine (05/07/17 11:57) Alcohol (Ethanol) (05/07/17 11:57) Labs Laboratory Tests Test 05/07/17 12:06 05/07/17 12:35 Urine Color LIGHT-YELLOW Urine Turbidity CLEAR Urine pH 6.0 Urine Specific [place] 1.002 Urine Protein NEG mg/dL Urine Glucose (UA) NEG mg/dL Urine Ketones NEG mg/dL Urine Occult Blood NEG Urine Nitrite NEG Urine Bilirubin NEG Urine Urobilinogen LESS THAN 2.0 MG/DL Urine Leukocyte Esterase NEG Urine WBC 1 /hpf Urine Squamous Epithelial Cells 1 /hpf Microscopic Urinalysis Comment CULT NOT INDICATED Urine Opiates Screen NEG Urine Barbiturates Screen NEG Urine Amphetamines Screen NEG Urine Benzodiazepines Screen NEG Urine Cocaine Screen NEG Urine Cannabinoids Screen NEG White Blood Count 6.1 TH/MM3 Red Blood Count 4.47 MIL/MM3 Hemoglobin 13.7 GM/DL Hematocrit 40.4 % Mean Corpuscular Volume 90.3 FL Mean Corpuscular Hemoglobin 30.7 PG Mean Corpuscular Hemoglobin Concent 33.9 % Red Cell Distribution Width 14.5 % Platelet Count 185 TH/MM3 Mean Platelet Volume 8.4 FL Neutrophils (%) (Auto) 81.9 % Lymphocytes (%) (Auto) 13.9 % Monocytes (%) (Auto) 3.8 % Eosinophils (%) (Auto) 0.0 % Basophils (%) (Auto) 0.4 % Neutrophils # (Auto) 5.0 TH/MM3 Lymphocytes # (Auto) 0.8 TH/MM3 Monocytes # (Auto) 0.2 TH/MM3 Eosinophils # (Auto) 0.0 TH/MM3 Basophils # (Auto) 0.0 TH/MM3 CBC Comment DIFF FINAL Differential Comment Blood Urea Nitrogen 7 MG/DL Creatinine 0.76 MG/DL Random Glucose 88 MG/DL Total Protein 6.8 GM/DL Albumin 4.0 GM/DL Calcium Level 9.0 MG/DL Alkaline Phosphatase 86 U/L Aspartate Amino Transf (AST/SGOT) 11 U/L Alanine Aminotransferase (ALT/SGPT) 14 U/L Total Bilirubin 0.5 MG/DL Sodium Level 143 MEQ/L Potassium Level 3.9 MEQ/L Chloride Level 110 MEQ/L Carbon Dioxide Level 22.6 MEQ/L Anion Gap 10 MEQ/L Estimat Glomerular Filtration Rate 83 ML/MIN Thyroid Stimulating Hormone 3rd Gen 0.980 uIU/ML Ethyl Alcohol Level LESS THAN 3 MG/DL MDM Medical Decision Making Medical Screen Exam Complete: Yes Emergency Medical Condition: Yes Medical Record Reviewed: Yes Differential Diagnosis Depression. Psychosis. Hallucinations. Narrative Course Patient appears medically stable at time of exam. Psychiatric labs are within normal limits. Patient is medically stable for psychiatric evaluation. Condition: Stable Stefan Plaza May 07, 2017 14:54
[2017-05-07] MEDS ORDERED: MAGNESIUM HYDROXIDE SUSP 30 ML CUP PO PRN (15:15)
[2017-05-07] MEDS ORDERED: ACETAMINOPHEN 325 MG TAB PO PRN (15:15)
[2017-05-07] MEDS ORDERED: ALUMINUM/MAGNESIUM/SIMETH 30 ML CUP PO PRN (15:15)
--- NOTE | 2017-05-07 15:16 | PD ---
History of Present Illness Chief Complaint: Schizoaffective Time Seen by Provider: 15:06 Travel History International Travel<30 Days: No Contact w/Intl Traveler<30days: No Known affected area: No Legal Status Legal Status: Voluntary History of Present Illness: 41-year-old single, female presents voluntarily to the emergency department with reports of hearing voices and wanting to hurt herself. Patient is well-known to this facility. Most recent admission was in March 29 - April 09, 2017. Evaluated electronic medical record, labs, and discussed case with staff. Interviewed patient in her room in [facility]. Patient is awake, alert, and oriented. Initially, she got the year wrong but on the third attempt she got a correct she did however note the month right away. She is clean but disheveled. Her speech is clear, logical, and organized. She did seem to have some internal stimulation with perhaps some minor thought blocking. She reports that she has been having auditory command hallucinations which tell her to harm herself as well as making derogatory statements. She reports feeling sad and states that she is fearful that she will harm herself. Patient resides at [facility] and is followed by the [facility] FACT team. [facility] Past Medical History Anemia: Yes Arthritis: No Asthma: No Autoimmune Disease: No Blood Disorders: No Bipolar Disorder: Yes Anxiety: Yes Depression: Yes Heart Rhythm Problems: No Cancer: No Cardiovascular Problems: No High Cholesterol: No Chemotherapy: No Chest Pain: No Congestive Heart Failure: No COPD: No Cerebrovascular Accident: No Diabetes: No Diminished Hearing: No Endocrine: No Gastrointestinal Disorders: Yes (IBS) GERD: Yes Genitourinary: No Headaches: No Hiatal Hernia: No Immune Disorder: No Implanted Vascular Access Dvce: No Kidney Stones: No Musculoskeletal: No Neurologic: Yes Psychiatric: Yes Reproductive: No Respiratory: No Immunizations Current: Yes Migraines: No Radiation Therapy: No Renal Failure: No Schizophrenia: Yes Seizures: No Sickle Cell Disease: No Sleep Apnea: No Thyroid Disease: No Ulcer: No Tetanus Vaccination: > 5 Years ?: Not LMP: 04/10/17 Menopausal: No : 0 Para: 0 Miscarriage: 0 : 0 Past Surgical History Abdominal Surgery: No AICD: No Arteriovenous Shunt: No Cardiac Surgery: No Ear Surgery: Yes (lazy eye surgery) Endocrine Surgery: No Eye Surgery: No Genitourinary Surgery: No Gynecologic Surgery: No Insulin Pump: No Joint Replacement: No Neurologic Surgery: No Oral Surgery: No Pacemaker: No Thoracic Surgery: No Other Surgery: Yes (L EYE/LAZY EYE) Psychiatric History Psychiatric History Hx Psychiatric Treatment: Patient with multiple admissions to [facility] and to [facility]. History of Inpatient Treatment: Yes Social History Hx Alcohol Use: No Hx Tobacco Use: Yes Hx Substance Use: No Substance Use Type: Nicotine/Cigarettes Other Substances Used: Patient states she smokes Hx of Substance Use Treatment: No Allergies-Medications (Allergen,Severity, Reaction): Coded Allergies: No Known Allergies (Verified , 10/27/15) Reported Meds & Prescriptions Reported Meds & Active Scripts Active Clozapine 50 Mg Tab 50 Mg PO DAILY Clozapine 100 Mg Tab 100 Mg PO 1 IN A.M. 4 AT HS Buspirone (Buspirone HCl) 10 Mg Tab 20 Mg PO BID Reported Viibryd (Vilazodone) 20 Mg Tab 20 Mg PO DAILY Invega Sustenna Inj (Paliperidone Palmitate) 39 Mg/0.25 Ml Inj Unknown Dose IM Q28D Anti-Diarrheal (Loperamide HCl) 2 Mg Cap 2 Mg PO DIRECTED One capsule after each loose stool. Not to exceed 8 capsules per day. Mental Status Examination Appearance: Disheveled Consciousness: Alert Orientation: x4 Motor Activity: Other (Sitting on bed) Speech: Hesitant Language: Adequate Fund of Knowledge: Inadequate Attention and Concentration: Easily Distracted Memory: Unremarkable Mood: Sad Affect: Sad Thought Process & Associations: Intact Thought Content: Hallucinations, Thought blocking Hallucination Type: Auditory (Command and derogatory) Suicidal Ideation: Yes (States that the voices tell her to kill herself) Suicidal Plan: No Suicidal Intention: No Homicidal Ideation: No Homicidal Plan: No Homicidal Intention: No Insight: Poor Judgment: Impulsive MDM Medical Decision Making Medical Record Reviewed: Yes Assessment/Plan This is a 41-year-old, single, white female who presents voluntarily to this facility for reported auditory hallucinations and suicidal ideation. This patient is well-known to this facility with her last inpatient admission lasting from March 29 - April 09, 2017. Upon examination patient is a awake, alert, and oriented. She does seem to be somewhat internally stimulated and there may be some minor thought blocking occurring as her speech was a bit hesitant and she had to ask this provider to repeat a question once or twice during the evaluation. Patient's mood is sad and her affect is sad. Given the patient's extensive psychiatric history. She will be admitted for further evaluation and treatment. Orders Orders Complete Blood Count With Diff (05/07/17 11:57) Comprehensive Metabolic Panel (05/07/17 11:57) Thyroid Stimulating Hormone (05/07/17 11:57) Urinalysis - C+S If Indicated (05/07/17 11:57) Ed Urine Pregnancytest Poc (05/07/17 11:57) Psych Screen (05/07/17 11:57) Drug Screen, Random Urine (05/07/17 11:57) Alcohol (Ethanol) (05/07/17 11:57) Loperamide (Imodium) (05/07/17 15:00) Admit Order (Ed Use Only) (05/07/17 15:03) Admit To Inpatient Psych (05/07/17 ) Code Status (05/07/17 15:04) Vital Signs (Adult) SE.Q12H.E (05/07/17 15:04) Activity Oob Ad Ewa (05/07/17 15:04) Level Of Observation (Psych) (05/07/17 15:04) Diet Regular Basic (05/07/17 Dinner) Acetaminophen (Tylenol) (05/07/17 15:15) Magnesium Hydroxide Liq (Milk Of Magnesi (05/07/17 15:15) Al-Mag Hy-Si 40-40-4 Mg/Ml Liq (Mag-Al P (05/07/17 15:15) Basic Metabolic Panel (Bmp) (05/08/17 06:00) Lipid Profile (05/08/17 06:00) Hemoglobin (Hgb) A1c (05/08/17 06:00) Results Vital Signs Date Time Temp Pulse Resp B/P (MAP) Pulse Ox O2 Delivery O2 Flow Rate FiO2 05/07/17 13:34 92 18 129/62 (84) 99 Room Air 05/07/17 11:54 97.7 110 18 125/70 (88) 99 Laboratory Tests Test 05/07/17 12:06 05/07/17 12:35 Urine Color LIGHT-YELLOW Urine Turbidity CLEAR Urine pH 6.0 Urine Specific [place] 1.002 Urine Protein NEG Urine Glucose (UA) NEG Urine Ketones NEG Urine Occult Blood NEG Urine Nitrite NEG Urine Bilirubin NEG Urine Urobilinogen LESS THAN 2.0 Urine Leukocyte Esterase NEG Urine WBC 1 Urine Squamous Epithelial Cells 1 Microscopic Urinalysis Comment CULT NOT INDICATED Urine Opiates Screen NEG Urine Barbiturates Screen NEG Urine Amphetamines Screen NEG Urine Benzodiazepines Screen NEG Urine Cocaine Screen NEG Urine Cannabinoids Screen NEG White Blood Count 6.1 Red Blood Count 4.47 Hemoglobin 13.7 Hematocrit 40.4 Mean Corpuscular Volume 90.3 Mean Corpuscular Hemoglobin 30.7 Mean Corpuscular Hemoglobin Concent 33.9 Red Cell Distribution Width 14.5 Platelet Count 185 Mean Platelet Volume 8.4 Neutrophils (%) (Auto) 81.9 Lymphocytes (%) (Auto) 13.9 Monocytes (%) (Auto) 3.8 Eosinophils (%) (Auto) 0.0 Basophils (%) (Auto) 0.4 Neutrophils # (Auto) 5.0 Lymphocytes # (Auto) 0.8 Monocytes # (Auto) 0.2 Eosinophils # (Auto) 0.0 Basophils # (Auto) 0.0 CBC Comment DIFF FINAL Differential Comment Blood Urea Nitrogen 7 Creatinine 0.76 Random Glucose 88 Total Protein 6.8 Albumin 4.0 Calcium Level 9.0 Alkaline Phosphatase 86 Aspartate Amino Transf (AST/SGOT) 11 Alanine Aminotransferase (ALT/SGPT) 14 Total Bilirubin 0.5 Sodium Level 143 Potassium Level 3.9 Chloride Level 110 Carbon Dioxide Level 22.6 Anion Gap 10 Estimat Glomerular Filtration Rate 83 Thyroid Stimulating Hormone 3rd Gen 0.980 Ethyl Alcohol Level LESS THAN 3 Diagnosis Primary Impression: Schizoaffective disorder, depressive type Admitting Information Admitting Physician Requests: Admit Condition: Stable BaronLon galveztd LOGAN May 07, 2017 15:16
[2017-05-07] MEDS: NICOTINE 21 MG/24 HR PATCH T-DERMAL SCH (17:00)
[2017-05-07 18:35] VITALS: BP 135/84; PULSE 96; RESP 18; TEMP 98; O2SAT 99
[2017-05-07] MEDS: cloZAPine 100 MG TAB PO SCH (21:03)
[2017-05-07] MEDS: LOPERAMIDE HCL 2 MG CAP PO PRN (21:18)
[2017-05-08 06:36] VITALS: BP 105/54; PULSE 76; RESP 16; TEMP 98.2; O2SAT 97
[2017-05-08] MEDS: NICOTINE 21 MG/24 HR PATCH T-DERMAL SCH (08:38)
[2017-05-08] MEDS: REMOVE OLD PATCH T-DERMAL SCH (08:39)
[2017-05-08 08:49] LABS: BICARBONATE 17.3 MEQ/L (21.0-32.0); BLOOD UREA NITROGEN 10 MG/DL (7-18); CALCIUM 9.1 MG/DL (8.5-10.1); CHLORIDE 111 MEQ/L (98-107); CREATININE 0.77 MG/DL (0.50-1.00); GLOMERULAR FILTRATION RATE 82 ML/MIN (>89); GLUCOSE,RANDOM 92 MG/DL (74-106); SODIUM (NA) 136 MEQ/L (136-145)
[2017-05-08] MEDS ORDERED: cloZAPine 25 MG TAB PO SCH (09:15)
[2017-05-08] MEDS ORDERED: cloZAPine 100 MG TAB PO SCH ×3 (09:15→21:00)
[2017-05-08 09:38] LABS: CHOLESTEROL 206 MG/DL (120-200); HDL CHOLESTEROL 70.8 MG/DL (40.0-60.0); LDL CHOLESTEROL 120 MG/DL (0-99); TRIGLYCERIDES 75 MG/DL (42-150)
[2017-05-08] MEDS: LOPERAMIDE HCL 2 MG CAP PO PRN ×2 (11:00→20:53)
[2017-05-08] MEDS ORDERED: PILL SPLITTER OTHER PRN (12:00)
[2017-05-08] MEDS ORDERED: SERTRALINE HCL 50 MG TAB PO ONE (12:00)
[2017-05-08] MEDS: busPIRone HCL 10 MG TAB PO SCH ×2 (12:25→20:54)
[2017-05-08] MEDS: cloZAPine 100 MG TAB PO SCH ×2 (14:00→20:53)
--- NOTE | 2017-05-08 14:19 | HHI.HP ---
Provisional Diagnosis Admission Date May 07, 2017 at 15:05 [place] I. Schizoaffective disorder Certification of Person's Competence To Provide Express and Informed Consent I have personally examined Chelo Norman , a person being served at [facility] on, May 08, 2017 14:08. Express and informed consent means consent voluntarily given in writing, by a competent person, after sufficient explanation and disclosure of the subject matter involved to enable the person to make a knowing and willful decision without any element of force, fraud, deceit, duress, or other form of constraint or coercion. This person is 18 years of age or older, is not now known to be incompetent to consent to treatment with a guardian advocate, and does not have a health care surrogate or proxy currently making medical treatment decisions. I have found this person to be one of the following: [xxx] Competent to provide express and informed consent, as defined above, for voluntary admission to this facility and is competent to provide express and informed consent for treatment. He/she has the consistent capacity to make well reasoned, willful, and knowing decisions concerning his or her medical or mental health treatment. The person fully and consistently understands the purpose of the admission for examination/placement and is fully capable of personally exercising all rights assured [place] Incompetent to provide express and informed consent to voluntary admission, and this is incompetent to provide express and informed consent to treatment. The person must be transferred to involuntary status and a petition for a guardian advocate filed with the Circuit Court. [] Refusing to provide express and informed consent to voluntary admission but is competent to provide express and informed consent for treatment. The person must be discharged or transferred to involuntary status. Form shall be completed within 24 hours of a person's arrival at the receiving facility and filed in the clinical record of each person: 1. Admitted on a voluntary basis 2. Permitted to provide express and informed consent to his/her own treatment 3. Allowed to transfer from involuntary to voluntary status 4. Prior to permitting a person to consent to his or her own treatment after having been previously found incompetent to consent to treatment. History of Present Illness Capacity: Has Capacity HPI Patient is a 41-year-old woman, single, domiciled in [facility] , with a past psychiatric history of schizoaffective disorder, multiple prior psychiatric admissions, multiple suicide attempts, history of self-injurious behavior, with a past medical history significant for IBS, who was brought in to the ED sent by patient's [facility] FACT team which patient was endorsing feeling depressed along with suicide ideations and resurges of command auditory hallucinations to kill herself which patient was admitted to the inpatient psychiatry for further evaluation and management. Patient was found sitting in hospital bed noted B, cooperative. Patient states that she had recently seen and met with her FACT team and had reported feeling depressed for the past couple of weeks along with resurgence of command auditory hallucinations to kill herself for the past 6 days which the voices tell her to kill herself and that she deserves to . Patient states that she had also been feeling anxious as well due to feeling depressed and having the auditory hallucinations. Patient reports sleeping well, will but noticed decreased appetite and energy, inconsistent concentration and states that the voices make her depressed. Patient reports having suicide ideations but no specific plan but have thought of overdosing. Patient states that her reasons to live R for the people who care about her. Patient this time reports feeling "low" continues report having auditory hallucinations even during interview as well as suicide ideations. Past psychiatric history: Previous psychiatric diagnosis schizoaffective disorder, multiple psychiatric admissions last time being in 0 03/29 203/0 5 here at [facility]), reports 6 previous suicide attempts mostly via overdose last time being years ago, patient reports history of self-injurious behavior via cutting as well as hitting her head on the wall which she last did 1 year ago. Patient reports being followed by [facility] FACT team where she is seen monthly. Patient reports having been on Clozaril for years and gets monthly blood work to monitor for neutropenia. Patient reports being on clozapine 150 mg a.m./400 mg at bedtime, buspirone 20 mg twice daily, Viibryd. Substance use history: Patient reports tobacco use, denies any drugs or alcohol use. Past medical history: IBS Allergies: NKDA Social history: Domiciled in guarded manner, single no children unemployed on SSI. Review of Systems Except as stated in HPI: all other systems reviewed are Neg Past Psych History Violence risk - others (6 mos) Low Violence risk - self (6 mos) Elevated due to history of suicide attempts and current suicide ideations Substance Abuse History Drugs/Alcohol past 12 months Patient reports tobacco use, denies any drugs or alcohol use Past Family Social History Coded Allergies: No Known Allergies (Verified , 10/27/15) Active Scripts Clozapine (Clozapine) 50 Mg Tab, 50 MG PO DAILY for Schizophrenia, #30 TAB 0 Refills Prov:Nico Sanchez MD 04/09/17 Clozapine (Clozapine) 100 Mg Tab, 100 MG PO 1 in a.m. 4 at hs for Schizophrenia , #150 TAB 0 Refills Prov:Nico Sanchez MD 04/09/17 Buspirone (Buspirone) 10 Mg Tab, 20 MG PO BID for Anxiety, #120 TAB 0 Refills Prov:Nico Sanchez MD 04/09/17 Reported Medications Vilazodone (Viibryd) 20 Mg Tab, 20 MG PO DAILY for Control Depression, #30 TAB 0 Refills 05/07/17 Paliperidone Palmitate Inj (Invega Sustenna Inj) 39 Mg/0.25 Ml Inj, IM Q28D for Schizophrenia, #1 VIAL 0 Refills 03/29/17 Loperamide (Anti-Diarrheal) 2 Mg Cap, 2 MG PO DIRECTED, CAP One capsule after each loose stool. Not to exceed 8 capsules per day. 07/17/16 Discontinued Reported Medications [Ventrillex] No Conflict Check, 10 MG DAILY 03/29/17 Discontinued Scripts Cholecalciferol (D 1000) 1,000 Unit Tab, 1000 UNITS PO DAILY for Vitamin D supplement for 10 Days, TAB 2 Refills Prov:José Shukla MD 07/24/16 Current Medications Medications (Trade) Dose Ordered Sig/[facility] Route Start Time Stop Time Status Last Admin (Imodium) 2 mg Q6H PRN PO 05/07/17 15:00 05/08/17 11:00 (Tylenol) 650 mg Q4H PRN PO 05/07/17 15:15 (Milk Of Magnesia Liq) 30 ml DAILY PRN PO 05/07/17 15:15 (Mag-Al Plus Susp Liq) 30 ml Q6H PRN PO 05/07/17 15:15 (Habitrol 21 Mg Patch.24 Hr) 1 patch DAILY T-DERMAL 05/07/17 17:00 Miscellaneous Information 1 DAILY T-DERMAL 05/08/17 09:00 (Clozaril) 400 mg HS PO 05/07/17 21:00 4/2/18 21:03 (Buspar) 20 mg BID PO 05/08/17 12:00 05/08/17 12:25 (Zoloft) 50 mg DAILY PO 05/09/17 09:00 (Pill Splitter) 1 ea UNSCH PRN OTHER 05/08/17 12:00 (Clozaril) 150 mg DAILY PO 05/08/17 14:00 05/08/17 14:00 Social History Domiciled in guarded manner, single no children unemployed on SSI. Patient's Strengths (min. 2) Verbal and communicative Physical Exam Patient not noted to be in acute distress, no gross motor abnormalities, no tremor or EPS, no psychomotor agitation or retardation. Vital Signs Vital Signs Date Time Temp Pulse Resp B/P (MAP) Pulse Ox O2 Delivery O2 Flow Rate FiO2 05/08/17 06:36 98.2 76 16 105/54 (71) 97 05/07/17 13:34 Room Air Lab Results Labs reviewed Test 05/08/17 08:08 05/08/17 12:04 Blood Urea Nitrogen 10 MG/DL Creatinine 0.77 MG/DL Random Glucose 92 MG/DL Calcium Level 9.1 MG/DL Sodium Level 136 MEQ/L Potassium Level 4.7 MEQ/L Chloride Level 111 MEQ/L Carbon Dioxide Level 17.3 MEQ/L Anion Gap 8 MEQ/L Estimat Glomerular Filtration Rate 82 ML/MIN Triglycerides Level 75 MG/DL Cholesterol Level 206 MG/DL LDL Cholesterol 120 MG/DL HDL Cholesterol 70.8 MG/DL Cholesterol/HDL Ratio 2.90 RATIO Mental Status Examination Appearance: Disheveled Consciousness: Alert Orientation: x4 Motor Activity: Other (Sitting on bed) Speech: Hesitant (Slightly) Language: Adequate Fund of Knowledge: Inadequate Attention and Concentration: Easily Distracted Memory: Unremarkable Mood: Sad Affect: Sad Thought Process & Associations: Intact Thought Content: Hallucinations Hallucination Type: Auditory (Command and derogatory) Suicidal Ideation: Yes (States that the voices tell her to kill herself) Suicidal Plan: No Suicidal Intention: No Homicidal Ideation: No Homicidal Plan: No Homicidal Intention: No Insight: Poor Judgment: Impulsive Assessment & Plan Problem List: (1) Schizoaffective disorder ICD Codes: F25.9 - Schizoaffective disorder, unspecified Assessment & Plan Estimated LOS:.5-7 days. Patient is a 41-year-old woman who carries a diagnosis of schizoaffective disorder, multiple psychiatric admissions, multiple suicide attempts and self-injurious behavior, being followed by ACT team who had referred patient to the hospital due to patient reported feeling depressed along with suicide ideations and command auditory hallucinations to kill herself. Patient continues endorse feeling depressed along with continued perceptional services of auditory hallucinations and suicide ideations. We will continue patient on clozapine 150 mg p.o. a.m./400 mg p.o. at bedtime with upward titration as needed for psychosis, continue patient on BuSpar 20 mg p.o. twice daily for anxiety, we will start patient on Zoloft 25 mg p.o. daily 1 with 50 mg p.o. daily thereafter for depression. We will continue to monitor mood and behavior. We will order clozapine level. Social work intervention for psychosocial assessment. Continue monitor mood and behavior. Discharge planning in progress. Discharge Planning Patient return back to her [facility] when psychiatrically stable. Problem Qualifiers (1) Schizoaffective disorder: Qualified Codes: F25.1 - Schizoaffective disorder, depressive type Jamie Lowe MD May 08, 2017 14:19
[2017-05-08 17:12] LABS: HEMOGLOBIN A1C 4.2 % (4.3-6.0)
[2017-05-08] MEDS: LORazepam 1 MG TAB PO PRN (17:52)
[2017-05-08 18:30] VITALS: BP 123/75; PULSE 89; RESP 18; TEMP 98.1; O2SAT 99
[2017-05-09 06:36] VITALS: BP 97/61; PULSE 72; RESP 16; TEMP 97.3; O2SAT 97
[2017-05-09] MEDS: cloZAPine 100 MG TAB PO SCH ×2 (08:49→20:47)
[2017-05-09] MEDS: busPIRone HCL 10 MG TAB PO SCH ×2 (08:49→20:45)
[2017-05-09] MEDS: SERTRALINE HCL 50 MG TAB PO SCH (08:49)
[2017-05-09] MEDS: LOPERAMIDE HCL 2 MG CAP PO PRN ×2 (08:49→20:49)
[2017-05-09] MEDS: NICOTINE 21 MG/24 HR PATCH T-DERMAL SCH (08:50)
[2017-05-09] MEDS: REMOVE OLD PATCH T-DERMAL SCH (08:50)
--- NOTE | 2017-05-09 14:19 | HHI.PYPN ---
Subjective Remarks Patient seen for follow, chart reviewed. Discussion nursing staff reported the patient continues to have command auditory hallucination to kill herself, but has been noted to be attending groups. Patient was found in group but able to interact with interview today. Patient states that she continues to have command auditory hallucinations to kill herself but is david for safety on the unit. Patient states that we will continue to feel depressed but tolerated initial dose of sertraline yesterday. Patient reports eating and drinking well no difficulty or bowel movement. Patient reports continue to be motivated to attend groups. Review of Systems Except as stated in HPI: all other systems reviewed are Neg Mental Status Examination Appearance: Disheveled Consciousness: Alert Orientation: x4 Motor Activity: Other (Sitting on bed) Speech: Hesitant (Slightly) Language: Adequate Fund of Knowledge: Inadequate Attention and Concentration: Easily Distracted Memory: Unremarkable Mood: Sad Affect: Sad Thought Process & Associations: Intact Thought Content: Hallucinations Hallucination Type: Auditory (Command and derogatory) Delusion Type: None Suicidal Ideation: Yes (States that the voices tell her to kill herself) Suicidal Plan: No Suicidal Intention: No Homicidal Ideation: No Homicidal Plan: No Homicidal Intention: No Insight: Poor Judgment: Impulsive Results Vitals/IOs Vital Signs Date Time Temp Pulse Resp B/P (MAP) Pulse Ox O2 Delivery O2 Flow Rate FiO2 05/09/17 06:36 97.3 72 16 97/61 (73) 97 05/07/17 13:34 Room Air Assessment & Plan Problem List: (1) Schizoaffective disorder ICD Codes: F25.9 - Schizoaffective disorder, unspecified Assessment & Plan Patient this time continues to endorse command auditory hallucination to kill herself and continues report feeling depressed. Patient tolerated medications well with no adverse drug reactions reported. We will increase clozapine to 200 mg a.m./400 mg at bedtime for psychosis, we will increase sertraline to 50 mg p.o. daily for depression, continue rest of medications. Continue to monitor mood and behavior. Discharge planning in progress. Justification for Cont. Inpt. At risk for further decompensation if at lower level of care Discharge Planning To return back to her [facility] when psychiatrically stable. Problem Qualifiers (1) Schizoaffective disorder: Qualified Codes: F25.1 - Schizoaffective disorder, depressive type Jamie Lowe MD May 09, 2017 14:19
[2017-05-09 16:44] VITALS: BP 112/79; PULSE 93; RESP 16; TEMP 98.1; O2SAT 98
[2017-05-09] MEDS: LORazepam 1 MG TAB PO PRN (17:14)
[2017-05-10 05:36] VITALS: BP 106/68; PULSE 85; RESP 17; TEMP 97.4; O2SAT 99
[2017-05-10] MEDS: NICOTINE 21 MG/24 HR PATCH T-DERMAL SCH (09:00)
[2017-05-10] MEDS: REMOVE OLD PATCH T-DERMAL SCH (09:00)
[2017-05-10] MEDS: busPIRone HCL 10 MG TAB PO SCH ×2 (09:34→21:00)
[2017-05-10] MEDS: cloZAPine 100 MG TAB PO SCH ×2 (09:34→21:02)
[2017-05-10] MEDS: SERTRALINE HCL 50 MG TAB PO SCH (09:34)
[2017-05-10] MEDS: LOPERAMIDE HCL 2 MG CAP PO PRN ×2 (09:38→21:20)
--- NOTE | 2017-05-10 15:39 | HHI.PYPN ---
Subjective Remarks Patient seen for follow up; chart reviewed. Discussion with nursing staff reported that the patient continues with command auditory hallucinations to kill herself but contracts for safety. Patient was found sitting on hospital bed, calm and cooperative. Patient states that that she had been feeling " worse in the a.m.", continued command auditory hallucinations, feeling continued depressed 7 out of 10 (10 being its worst) and that initially was 9 out of 10. She states that she was able to speak to her mother and best friend over the phone which went well. Review of Systems Except as stated in HPI: all other systems reviewed are Neg Mental Status Examination Appearance: Appropriate Consciousness: Alert Orientation: x4 Motor Activity: Other (Sitting on bed) Speech: Hesitant (Slightly) Language: Adequate Fund of Knowledge: Inadequate Attention and Concentration: Easily Distracted Memory: Unremarkable Mood: Sad Affect: Sad Thought Process & Associations: Intact Thought Content: Hallucinations Hallucination Type: Auditory (Command and derogatory) Delusion Type: None Suicidal Ideation: Yes (States that the voices tell her to kill herself) Suicidal Plan: No Suicidal Intention: No Homicidal Ideation: No Homicidal Plan: No Homicidal Intention: No Insight: Poor Judgment: Impulsive Results Vitals/IOs Vital Signs Date Time Temp Pulse Resp B/P (MAP) Pulse Ox O2 Delivery O2 Flow Rate FiO2 05/10/17 05:36 97.4 85 17 106/68 (81) 99 05/07/17 13:34 Room Air Intake and Output 05/10/17 05/10/17 05/11/17 08:00 16:00 00:00 Intake Total 360 ml Balance 360 ml Assessment & Plan Problem List: (1) Schizoaffective disorder ICD Codes: F25.9 - Schizoaffective disorder, unspecified Assessment & Plan Patient continues with auditory hallucinations and depressed mood along with continued suicidal ideations. Clozaril recently increased as well as sertraline , will continue current regimen for now and continue to monitor mood and behavior. Discharge planning in progress. Justification for Cont. Inpt. At risk for further decompensation if at lower level of care Discharge Planning Return back to [facility] Problem Qualifiers (1) Schizoaffective disorder: Qualified Codes: F25.1 - Schizoaffective disorder, depressive type Jmaie Lowe MD May 10, 2017 15:39
[2017-05-10 18:00] VITALS: BP 117/77; PULSE 97; RESP 17; TEMP 97.9; O2SAT 100
[2017-05-11 06:13] VITALS: BP 96/51; PULSE 75; RESP 16; TEMP 97.9; O2SAT 98
[2017-05-11] MEDS: REMOVE OLD PATCH T-DERMAL SCH (09:00)
[2017-05-11] MEDS: NICOTINE 21 MG/24 HR PATCH T-DERMAL SCH (09:00)
[2017-05-11] MEDS: busPIRone HCL 10 MG TAB PO SCH ×2 (09:28→20:26)
[2017-05-11] MEDS: cloZAPine 100 MG TAB PO SCH ×2 (09:28→20:26)
[2017-05-11] MEDS: SERTRALINE HCL 50 MG TAB PO SCH (09:28)
--- NOTE | 2017-05-11 17:03 | HHI.PYPN ---
Subjective Remarks Patient seen for follow, chart reviewed. Discussion nurses have reported that patient had endorsed that the voices are ladder, noted to be attending groups. Patient was found sitting in hospital bed noted B, cooperative. Patient states that the voices are now sporadic and not as loud. Patient continues to participate in group, low continues report feeling depressed stating that she states feels just as depressed as she felt when she came into the hospital. Patient mentions being glad that she is not feeling very sedated with the increase in Clozaril although it does assist with decreasing the intensity of auditory hallucinations. Patient continues report improved appetite, denying any adverse drug reactions. Review of Systems Except as stated in HPI: all other systems reviewed are Neg Mental Status Examination Appearance: Appropriate Consciousness: Alert Orientation: x4 Motor Activity: Other (Sitting on bed) Speech: Hesitant (Slightly) Language: Adequate Fund of Knowledge: Inadequate Attention and Concentration: Easily Distracted Memory: Unremarkable Mood: Sad Affect: Sad Thought Process & Associations: Intact Thought Content: Hallucinations Hallucination Type: Auditory (Command and derogatory , decreasing in intensity) Delusion Type: None Suicidal Ideation: Yes (States that the voices tell her to kill herself) Suicidal Plan: No Suicidal Intention: No Homicidal Ideation: No Homicidal Plan: No Homicidal Intention: No Insight: Poor Judgment: Impulsive Results Vitals/IOs Vital Signs Date Time Temp Pulse Resp B/P (MAP) Pulse Ox O2 Delivery O2 Flow Rate FiO2 05/11/17 06:13 97.9 75 16 96/51 (66) 98 05/07/17 13:34 Room Air Assessment & Plan Problem List: (1) Schizoaffective disorder ICD Codes: F25.9 - Schizoaffective disorder, unspecified Assessment & Plan Patient this time noted to have continues to report auditory hallucinations although decreasing in intensity. Patient continues report feeling depressed, we will increase sertraline to 75 mg p.o. daily. Continue rest of medications. Continue to monitor mood and behavior. Discharge planning in progress. Justification for Cont. Inpt. At risk for further decompensation if at lower level of care Discharge Planning Patient return back to her [facility] when psychiatrically stable. Problem Qualifiers (1) Schizoaffective disorder: Qualified Codes: F25.1 - Schizoaffective disorder, depressive type Jamie Lowe MD May 11, 2017 17:03
[2017-05-11 17:21] VITALS: BP 125/82; PULSE 95; RESP 16; TEMP 97.9; O2SAT 99
[2017-05-11] MEDS: LOPERAMIDE HCL 2 MG CAP PO PRN (20:25)
[2017-05-12 06:21] VITALS: BP 97/55; PULSE 84; RESP 17; TEMP 98.1; O2SAT 96
[2017-05-12] MEDS: NICOTINE 21 MG/24 HR PATCH T-DERMAL SCH (09:00)
[2017-05-12] MEDS: REMOVE OLD PATCH T-DERMAL SCH (09:00)
[2017-05-12] MEDS: SERTRALINE HCL 50 MG TAB PO SCH (09:20)
[2017-05-12] MEDS: cloZAPine 100 MG TAB PO SCH ×2 (09:21→21:24)
[2017-05-12] MEDS: busPIRone HCL 10 MG TAB PO SCH ×2 (09:21→21:24)
[2017-05-12] MEDS: LOPERAMIDE HCL 2 MG CAP PO PRN ×2 (09:21→21:24)
--- NOTE | 2017-05-12 12:20 | HHI.PYPN ---
Subjective Remarks Reviewed electronic medical record and discussed case with staff. Patient's follow-up was performed in her room with nurse present. Patient was found sitting on her bed. Staff reports she has been med compliant. She states that she feels she is doing a little better but claims to still be hearing voices. She does advise that over the last couple of days they have become "less and quieter". She reports that she slept okay and has had a good appetite. Additionally, she states that her depression has decreased from an 8 out of a 10 to a 6 out of 10. Mental Status Examination Appearance: Appropriate Consciousness: Alert Orientation: x4 Motor Activity: Other (Sitting on bed) Speech: Hesitant (Slightly) Language: Adequate Fund of Knowledge: Inadequate Attention and Concentration: Easily Distracted Memory: Unremarkable Mood: Sad Affect: Sad Thought Process & Associations: Intact Thought Content: Hallucinations Hallucination Type: Auditory (Command and derogatory , decreasing in intensity) Delusion Type: None Suicidal Ideation: Yes (States that the voices tell her to kill herself) Suicidal Plan: No Suicidal Intention: No Homicidal Ideation: No Homicidal Plan: No Homicidal Intention: No Insight: Poor Judgment: Impulsive Results Vitals/IOs Vital Signs Date Time Temp Pulse Resp B/P (MAP) Pulse Ox O2 Delivery O2 Flow Rate FiO2 05/12/17 06:21 98.1 84 17 97/55 (69) 96 Assessment & Plan Problem List: (1) Schizoaffective disorder ICD Codes: F25.9 - Schizoaffective disorder, unspecified Assessment & Plan Estimated LOS: Patient reports are still some room for improvement in her symptoms. Continue with treatment plan. Justification for Cont. Inpt. Moving this patient to a lower level of care would likely result in decompensation. Problem Qualifiers (1) Schizoaffective disorder: Qualified Codes: F25.1 - Schizoaffective disorder, depressive type Debora Draper May 12, 2017 12:20
[2017-05-12 18:23] VITALS: BP 138/71; PULSE 97; RESP 18; TEMP 98.6; O2SAT 98
[2017-05-13 06:18] VITALS: BP 89/62; PULSE 76; RESP 16; TEMP 97.9; O2SAT 97
[2017-05-13 08:28] VITALS: BP 113/71; PULSE 88
[2017-05-13] MEDS: NICOTINE 21 MG/24 HR PATCH T-DERMAL SCH (09:00)
[2017-05-13] MEDS: REMOVE OLD PATCH T-DERMAL SCH (09:00)
[2017-05-13] MEDS: busPIRone HCL 10 MG TAB PO SCH ×2 (09:36→21:25)
[2017-05-13] MEDS: LOPERAMIDE HCL 2 MG CAP PO PRN ×2 (09:37→21:27)
[2017-05-13] MEDS: SERTRALINE HCL 50 MG TAB PO SCH (09:37)
[2017-05-13] MEDS: cloZAPine 100 MG TAB PO SCH ×2 (09:37→21:26)
[2017-05-13 18:36] VITALS: BP 105/63; PULSE 91; RESP 16; TEMP 98; O2SAT 99
--- NOTE | 2017-05-13 18:36 | HHI.PYPN ---
Subjective Remarks Reviewed electronic medical record discussed case with staff. Nurse reports patient doing much better today. Follow-up performed in patient's room with nurse present. Patient states that she has heard no voices today. She denies feeling suicidal, homicidal, or experiencing visual hallucinations. She reports that today was a "good day", and she would like to be discharged tomorrow. Mental Status Examination Appearance: Appropriate Consciousness: Alert Orientation: x4 Motor Activity: Other (Sitting on bed) Speech: Unremarkable Language: Adequate Fund of Knowledge: Adequate Attention and Concentration: Adequate Memory: Unremarkable Mood: Good Affect: Appropriate Thought Process & Associations: Intact Thought Content: Appropriate Hallucination Type: None Delusion Type: None Suicidal Ideation: No Suicidal Plan: No Suicidal Intention: No Homicidal Ideation: No Homicidal Plan: No Homicidal Intention: No Insight: Poor Judgment: Impulsive Results Vitals/IOs Vital Signs Date Time Temp Pulse Resp B/P (MAP) Pulse Ox O2 Delivery O2 Flow Rate FiO2 05/13/17 08:28 88 113/71 (85) 05/13/17 06:18 97.9 16 97 Assessment & Plan Problem List: (1) Schizoaffective disorder ICD Codes: F25.9 - Schizoaffective disorder, unspecified Assessment & Plan Estimated LOS: Expected discharge within the next 1-2 days. Days Justification for Cont. Inpt. Expect discharge within the next 1-2 days. Problem Qualifiers (1) Schizoaffective disorder: Qualified Codes: F25.1 - Schizoaffective disorder, depressive type Debora Draper May 13, 2017 18:36
[2017-05-14 06:10] VITALS: BP 101/60; PULSE 74; RESP 16; TEMP 97.6; O2SAT 96
[2017-05-14] MEDS: REMOVE OLD PATCH T-DERMAL SCH (09:00)
[2017-05-14] MEDS: NICOTINE 21 MG/24 HR PATCH T-DERMAL SCH (09:24)
[2017-05-14] MEDS: cloZAPine 100 MG TAB PO SCH (09:24)
[2017-05-14] MEDS: SERTRALINE HCL 50 MG TAB PO SCH (09:24)
[2017-05-14] MEDS: busPIRone HCL 10 MG TAB PO SCH (09:24)
[2017-05-14] MEDS: LOPERAMIDE HCL 2 MG CAP PO PRN (10:11)
[2017-05-14] MEDS ORDERED: ZOLO50TA PO (13:27)
[2017-05-14] MEDS ORDERED: CLOZ200T PO ×2 (13:27)
[2017-05-14] MEDS ORDERED: BUSP10TA PO (13:27)
--- NOTE | 2017-05-14 13:28 | HHI.DS ---
Psychiatry Discharge Summary Inpatient Psychiatric care?: Yes Advance Directive: No Mental Health AdvanceDirective: No Health Care Proxy: No Admission Admission Date May 07, 2017 at 15:05 Admission Diagnosis: (1) Schizoaffective disorder ICD Code: F25.9 - Schizoaffective disorder, unspecified Brief History Patient is a 41-year-old woman, single, domiciled in [facility] , with a past psychiatric history of schizoaffective disorder, multiple prior psychiatric admissions, multiple suicide attempts, history of self-injurious behavior, with a past medical history significant for IBS, who was brought in to the ED sent by patient's [facility] FACT team which patient was endorsing feeling depressed along with suicide ideations and resurges of command auditory hallucinations to kill herself which patient was admitted to the inpatient psychiatry for further evaluation and management. Patient was found sitting in hospital bed noted B, cooperative. Patient states that she had recently seen and met with her FACT team and had reported feeling depressed for the past couple of weeks along with resurgence of command auditory hallucinations to kill herself for the past 6 days which the voices tell her to kill herself and that she deserves to . Patient states that she had also been feeling anxious as well due to feeling depressed and having the auditory hallucinations. Patient reports sleeping well, will but noticed decreased appetite and energy, inconsistent concentration and states that the voices make her depressed. Patient reports having suicide ideations but no specific plan but have thought of overdosing. Patient states that her reasons to live R for the people who care about her. Patient this time reports feeling "low" continues report having auditory hallucinations even during interview as well as suicide ideations. Past psychiatric history: Previous psychiatric diagnosis schizoaffective disorder, multiple psychiatric admissions last time being in 0 03/29 203/0 5 here at [facility]), reports 6 previous suicide attempts mostly via overdose last time being years ago, patient reports history of self-injurious behavior via cutting as well as hitting her head on the wall which she last did 1 year ago. Patient reports being followed by [facility] FACT team where she is seen monthly. Patient reports having been on Clozaril for years and gets monthly blood work to monitor for neutropenia. Patient reports being on clozapine 150 mg a.m./400 mg at bedtime, buspirone 20 mg twice daily, Viibryd. Substance use history: Patient reports tobacco use, denies any drugs or alcohol use. Past medical history: IBS Allergies: NKDA Social history: Domiciled in guarded manner, single no children unemployed on SSI. Tobacco Use In Past 30 Days: No Tobacco Past 30 Days Alcohol Use: Never Hospital Course Patient is a 41-year-old woman, single, domiciled in [facility] , with a past psychiatric history of schizoaffective disorder, multiple prior psychiatric admissions, multiple suicide attempts, history of self-injurious behavior, with a past medical history significant for IBS, who was brought in to the ED sent by patient's [facility] FACT team which patient was endorsing feeling depressed along with suicide ideations and resurges of command auditory hallucinations to kill herself which patient was admitted to the inpatient psychiatry for further evaluation and management. Patient was continued on clozapine and titrated up to 200mg/400mg, buspirone 20mg PO BID and started on sertraline 50mg PO daily which she tolerated well and noted to be calm and cooperative with staff. She had continued with depressed mood, intermittent suicidal ideation, and continued AH but with titration of treatment regimen was noted to improve. Patient was noted to have improvement in mood, maintained hygiene and participated in groups and activities. She was observed by staff to not have had any behavioral disturbances, not having made any suicidal or homicidal statements and maintained stable mood through admission and was noted to interact with staff adequately. Patient reported feeling future oriented and reported cessation of suicidal ideations and perceptual disturbances. Upon discharge patient stated that she was feeling good, reported well with the treatment, as well as motivation to continue recommendations and denied any SI, HI, perceptual disturbances or delusions. Weighing the acute, chronic, and protective factors and based on the available evidence, I criminal court judge to a reasonable degree of medical certainty that the patient is at low imminent risk of harm to self or others from a mental illness as defined under the Piper act and her level of function is adequate as observed on the unit for planned level of outpatient care. He was counseled regarding warning signs for need to return to the psychiatric emergency room as part of a general safety plan. Patient advised to call 911 or go nearest ED in case of emergency. Patient agreed with plan. Results Blood Pressure 101 / 60 Vital Signs Date Time Temp Pulse Resp B/P (MAP) Pulse Ox O2 Delivery O2 Flow Rate FiO2 05/14/17 06:10 97.6 74 16 101/60 (74 96 Laboratory Results Test 05/08/17 08:08 Cholesterol Level 206 MG/DL (120-200) HDL Cholesterol 70.8 MG/DL (40.0-60.0) Hemoglobin A1c 4.2 % (4.3-6.0) LDL Cholesterol 120 MG/DL (0-99) Triglycerides Level 75 MG/DL (42-150) Summary of Procedures none Pending results at discharge: No Medications # of Antipsychotic meds at D/C: 1 Approp Antipsych med options 1 - Minimum of three failed multiple trials of monotherapy. 2 - Documented plan to taper to monotherapy due to previous use of multiple meds OR cross-taper in progress at D/C. 3 - Documentation of augmentation of Clozapine. 4 - Justification other than those listed in allowable values 1-3, document here : Discharge Discharge Date: May 14, 2017 Discharge Diagnosis: (1) Schizoaffective disorder ICD Code: F25.9 - Schizoaffective disorder, unspecified Pt Condition on Discharge: Stable Discharge Disposition: Discharge Home Discharge Instructions Diet Instructions: As Tolerated, No Restrictions Activities you can perform: Regular-No Restrictions Scheduled Appointment: Jerome Salmon Discharge Time > 30 minutes Mental Status Examination Appearance: Appropriate Consciousness: Alert Orientation: x4 Motor Activity: Other (Sitting on bed) Speech: Unremarkable Language: Adequate Fund of Knowledge: Adequate Attention and Concentration: Adequate Memory: Unremarkable Mood: Good Affect: Appropriate Thought Process & Associations: Intact Thought Content: Appropriate Hallucination Type: None Delusion Type: None Suicidal Ideation: No Suicidal Plan: No Suicidal Intention: No Homicidal Ideation: No Homicidal Plan: No Homicidal Intention: No Insight: Fair Judgment: Impulsive Discharge/Advance Care Plan Health Problems: (1) Schizoaffective disorder Goals to promote your health * To prevent worsening of your condition and complications * To maintain your health at the optimal level Directions to meet your goals Take your medications as prescribed Follow your dietary instruction Follow activity as directed Keep your appointments as scheduled Take your immunizations and boosters as scheduled If your symptoms worsen call your PCP, if no PCP go to Urgent Care Center or Emergency Room For 28/08 questions related to your inpatient stay or results of tests pending at discharge, please contact Dr. Jamie Lowe at Smoking is Dangerous to Your Health. Avoid second hand smoking Problem Qualifiers (1) Schizoaffective disorder: Qualified Codes: F25.1 - Schizoaffective disorder, depressive type Jamie Lowe MD May 14, 2017 13:28
== END 2017-05-14 14:30 | disposition home or self-care (01) | DRG 885 ==
LOC: NEPJ 11:35 → NEDA 15:05 → H260 16:06
PROVIDERS: ADMIT Student in an Organized Health Care Education/Training Program; ATTEND Student in an Organized Health Care Education/Training Program
DX: F25.1 Schizoaffective disorder, depressive type (principal); R45.851 Suicidal ideations; F31.9 Bipolar disorder, unspecified; K58.9 Irritable bowel syndrome, unspecified; K21.9 Gastro-esophageal reflux disease without esophagitis; F41.9 Anxiety disorder, unspecified; F17.210 Nicotine dependence, cigarettes, uncomplicated; Z91.5 Personal history of self-harm; Z79.899 Other long term (current) drug therapy
CPT/HCPCS: 80048; 80053; 80061; 80159; 80307; 81001; 83036; 84443; 84703; 85025; 99285; G0480

== ENCOUNTER 2017-07-20 19:10 | Inpatient (IN) | payer MEDICARE, OTHER ==
[~2017-07-20] VITALS: Ht 160 cm; Wt 63.1 kg
[~2017-07-20 19:10] MED LIST changes: -CLOZ100T3 PO; +CLOZ200T PO; -CLOZ50TA PO; -INVE39IN IM; -VITA1000 PO; +ZOLO50TA PO; -[UNRECOGNIZED DRUG - OTHER]
[2017-07-20 19:27] VITALS: BP 132/83; PULSE 118; RESP 18; TEMP 98.3; O2SAT 98
--- NOTE | 2017-07-20 19:40 | PD ---
HPI Chief Complaint: Psychiatric Symptoms Time Seen by Provider: 19:37 Travel History International Travel<30 days: No Contact w/Intl Traveler<30days: No Traveled to known affect area: No History of Present Illness HPI This is a 42-year-old female with history of schizoaffective disorder who presents under a Piper act initiated by the Police Department. Patient is a resident of [facility]. She reports that over the past 4 days she has been feeling increasing depression and suicidal ideation as well as auditory hallucinations telling her to cut an artery or overdose on pills. Symptoms are moderate, aggravated by auditory hallucinations with no alleviating factors. Onset 4 days ago. She reports that her family dog is dying of cancer and this is making her feel more depressed. She denies any drug or alcohol use. She has no acute medical complaints at this time. [facility] Past Medical History Anemia: Yes Arthritis: No Asthma: No Autoimmune Disease: No Blood Disorders: No Bipolar Disorder: Yes Anxiety: Yes Depression: Yes Heart Rhythm Problems: No Cancer: No Cardiovascular Problems: No High Cholesterol: No Chemotherapy: No Chest Pain: No Congestive Heart Failure: No COPD: No Cerebrovascular Accident: No Diabetes: No Diminished Hearing: No Endocrine: No Gastrointestinal Disorders: Yes (IBS) GERD: Yes Genitourinary: No Headaches: No Hiatal Hernia: No Immune Disorder: No Implanted Vascular Access Dvce: No Kidney Stones: No Musculoskeletal: No Neurologic: Yes Psychiatric: No (inpatient and out patient) Reproductive: No Respiratory: No Immunizations Current: Yes Migraines: No Radiation Therapy: No Renal Failure: No Schizophrenia: Yes Seizures: No Sickle Cell Disease: No Sleep Apnea: No Thyroid Disease: No Ulcer: No Menopausal: No : 0 Para: 0 Miscarriage: 0 : 0 Past Surgical History Abdominal Surgery: No AICD: No Arteriovenous Shunt: No Cardiac Surgery: No Ear Surgery: Yes (lazy eye surgery) Endocrine Surgery: No Eye Surgery: No Genitourinary Surgery: No Gynecologic Surgery: No Insulin Pump: No Joint Replacement: No Neurologic Surgery: No Oral Surgery: No Pacemaker: No Thoracic Surgery: No Other Surgery: Yes (L EYE/LAZY EYE) Social History Alcohol Use: No Tobacco Use: Yes Substance Use: No Allergies-Medications (Allergen,Severity, Reaction): Coded Allergies: No Known Allergies (Verified , 10/27/15) Reported Meds & Prescriptions Reported Meds & Active Scripts Active Clozapine 200 Mg Tab 400 Mg PO HS 30 Days Clozapine 200 Mg Tab 200 Mg PO DAILY 30 Days Zoloft (Sertraline HCl) 50 Mg Tab 75 Mg PO DAILY 30 Days Buspirone (Buspirone HCl) 10 Mg Tab 20 Mg PO BID 30 Days Reported Anti-Diarrheal (Loperamide HCl) 2 Mg Cap 2 Mg PO DIRECTED One capsule after each loose stool. Not to exceed 8 capsules per day. Review of Systems Except as stated in HPI: all other systems reviewed are Neg Physical Exam Narrative GENERAL: Pleasant well-developed well-nourished female no acute distress SKIN: Warm and dry. HEAD: Atraumatic. Normocephalic. EYES: Pupils equal and round. No scleral icterus. No injection or drainage. ENT: No nasal bleeding or discharge. Mucous membranes pink and moist. NECK: Trachea midline. No JVD. CARDIOVASCULAR: Regular rate and rhythm. No murmur appreciated. RESPIRATORY: No accessory muscle use. Clear to auscultation. Breath sounds equal bilaterally. GASTROINTESTINAL: Abdomen soft, non-tender, nondistended. Hepatic and splenic margins not palpable. MUSCULOSKELETAL: No obvious deformities. No clubbing. No cyanosis. No edema. NEUROLOGICAL: Awake and alert. No obvious cranial nerve deficits. Motor grossly within normal limits. Normal speech. PSYCHIATRIC: Depressed mood, flat affect. Insight and judgment appear normal. Data Data Last Documented VS Vital Signs Date Time Temp Pulse Resp B/P (MAP) Pulse Ox O2 Delivery O2 Flow Rate FiO2 07/20/17 19:27 98.3 118 18 132/83 (99) 98 Orders Orders Complete Blood Count With Diff (07/20/17 19:37) Comprehensive Metabolic Panel (07/20/17 19:37) Thyroid Stimulating Hormone (07/20/17 19:37) Psych Screen (07/20/17 19:37) Drug Screen, Random Urine (07/20/17 19:37) Alcohol (Ethanol) (07/20/17 19:37) Salicylates (Aspirin) (07/20/17 19:37) Tylenol (Acetaminophen) (07/20/17 19:37) Ed Urine Pregnancytest Poc (07/20/17 20:10) Labs Laboratory Tests Test 07/20/17 20:00 White Blood Count 6.5 TH/MM3 Red Blood Count 4.30 MIL/MM3 Hemoglobin 13.1 GM/DL Hematocrit 38.2 % Mean Corpuscular Volume 88.8 FL Mean Corpuscular Hemoglobin 30.4 PG Mean Corpuscular Hemoglobin Concent 34.2 % Red Cell Distribution Width 14.6 % Platelet Count 248 TH/MM3 Mean Platelet Volume 8.3 FL Neutrophils (%) (Auto) 72.3 % Lymphocytes (%) (Auto) 22.2 % Monocytes (%) (Auto) 5.4 % Eosinophils (%) (Auto) 0.0 % Basophils (%) (Auto) 0.1 % Neutrophils # (Auto) 4.7 TH/MM3 Lymphocytes # (Auto) 1.4 TH/MM3 Monocytes # (Auto) 0.4 TH/MM3 Eosinophils # (Auto) 0.0 TH/MM3 Basophils # (Auto) 0.0 TH/MM3 CBC Comment DIFF FINAL Differential Comment Blood Urea Nitrogen 8 MG/DL Creatinine 0.81 MG/DL Random Glucose 91 MG/DL Total Protein 6.9 GM/DL Albumin 3.9 GM/DL Calcium Level 9.1 MG/DL Alkaline Phosphatase 155 U/L Aspartate Amino Transf (AST/SGOT) 14 U/L Alanine Aminotransferase (ALT/SGPT) 21 U/L Total Bilirubin 0.4 MG/DL Sodium Level 141 MEQ/L Potassium Level 3.6 MEQ/L Chloride Level 106 MEQ/L Carbon Dioxide Level 23.3 MEQ/L Anion Gap 12 MEQ/L Estimat Glomerular Filtration Rate 77 ML/MIN Thyroid Stimulating Hormone 3rd Gen 2.280 uIU/ML Salicylates Level LESS THAN 1.7 MG/DL Urine Opiates Screen NEG Acetaminophen Level LESS THAN 2.0 MCG/ML Urine Barbiturates Screen NEG Urine Amphetamines Screen NEG Urine Benzodiazepines Screen NEG Urine Cocaine Screen NEG Urine Cannabinoids Screen NEG Ethyl Alcohol Level LESS THAN 3 MG/DL [facility] Medical Decision Making Medical Screen Exam Complete: Yes Emergency Medical Condition: Yes Medical Record Reviewed: Yes Differential Diagnosis Schizophrenia, schizoaffective disorder, acute psychosis, adjustment reaction, substance-induced mood disorder Narrative Course 42-year-old female with history of schizoaffective disorder presents under Piper act for psychiatric evaluation. Mental health screening discussed with the patient. Psychiatric screen ordered. The patient is medically cleared for psychiatric disposition. Diagnosis Primary Impression: Medical clearance for psychiatric admission Geovanny Cadena Jul 20, 2017 19:40
[2017-07-20 21:36] LABS: AUTOMATED NEUTROPHIL # 4.7 TH/MM3 (1.8-7.7); BASOPHIL % 0.1 % (0.0-2.0); HEMATOCRIT 38.2 % (35.0-46.0); HEMOGLOBIN 13.1 GM/DL (11.6-15.3); LYMPH % 22.2 % (9.0-44.0); LYMPHOCYTE # 1.4 TH/MM3 (1.0-4.8); MEAN CELL VOLUME 88.8 FL (80.0-100.0); MEAN CORPUSCULAR HEMOGLOBIN 30.4 PG (27.0-34.0); MEAN CORPUSCULAR HGB CONC 34.2 % (32.0-36.0); MEAN PLATELET VOLUME 8.3 FL (7.0-11.0); MONO % 5.4 % (0.0-8.0); MONOCYTE # 0.4 TH/MM3 (0-0.9); NEUT % 72.3 % (16.0-70.0); PLATELET COUNT 248 TH/MM3 (150-450); RED CELL DISTRIBUTION WIDTH 14.6 % (11.6-17.2); WHITE BLOOD COUNT 6.5 TH/MM3 (4.0-11.0)
[2017-07-20 22:16] LABS: ACETAMINOPHEN LESS THAN 2.0 MCG/ML (10.0-30.0); ALBUMIN 3.9 GM/DL (3.4-5.0); ALKALINE PHOSPHATASE 155 U/L (45-117); ALT (GPT) 21 U/L (10-53); AST (GOT) 14 U/L (15-37); BICARBONATE 23.3 MEQ/L (21.0-32.0); BLOOD UREA NITROGEN 8 MG/DL (7-18); CALCIUM 9.1 MG/DL (8.5-10.1); CHLORIDE 106 MEQ/L (98-107); CREATININE 0.81 MG/DL (0.50-1.00); GLOMERULAR FILTRATION RATE 77 ML/MIN (>89); GLUCOSE,RANDOM 91 MG/DL (74-106); SODIUM (NA) 141 MEQ/L (136-145); TOTAL BILIRUBIN ADULT 0.4 MG/DL (0.2-1.0); TOTAL PROTEIN 6.9 GM/DL (6.4-8.2)
[2017-07-20 23:53] VITALS: BP 117/76; PULSE 86; RESP 18; TEMP 98.6; O2SAT 98
[2017-07-21 04:11] VITALS: BP 134/70; PULSE 95; RESP 18; TEMP 98.6; O2SAT 98
[2017-07-21 13:15] VITALS: BP 130/88; PULSE 104; RESP 18; TEMP 98.1; O2SAT 97
[2017-07-21] MEDS ORDERED: ACETAMINOPHEN 325 MG TAB PO PRN (13:30)
[2017-07-21] MEDS: NICOTINE 21 MG/24 HR PATCH T-DERMAL SCH (13:30)
[2017-07-21] MEDS ORDERED: LORazepam 2 MG/ML VIAL IM PRN ×2 (13:30)
[2017-07-21] MEDS ORDERED: LORazepam 0.5 MG TAB PO PRN (13:30)
[2017-07-21] MEDS ORDERED: LORazepam 1 MG TAB PO PRN (13:30)
[2017-07-21] MEDS ORDERED: MAGNESIUM HYDROXIDE SUSP 30 ML CUP PO PRN (13:30)
[2017-07-21] MEDS ORDERED: ALUMINUM/MAGNESIUM/SIMETH 30 ML CUP PO PRN (13:30)
--- NOTE | 2017-07-21 13:41 | HHI.HP ---
Provisional Diagnosis Admission Date [place] I. Schizoaffective disorder, bipolar type [place] II. Borderline personality disorder [place] III. IBS [place] IV. Multiple psychiatric hospitalizations, multiple suicidal attempts, [place] V. 50 Certification of Person's Competence To Provide Express and Informed Consent I have personally examined Chelo Norman , a person being served at [facility] on, Jul 21, 2017 13:25. Express and informed consent means consent voluntarily given in writing, by a competent person, after sufficient explanation and disclosure of the subject matter involved to enable the person to make a knowing and willful decision without any element of force, fraud, deceit, duress, or other form of constraint or coercion. This person is 18 years of age or older, is not now known to be incompetent to consent to treatment with a guardian advocate, and does not have a health care surrogate or proxy currently making medical treatment decisions. I have found this person to be one of the following: [x] Competent to provide express and informed consent, as defined above, for voluntary admission to this facility and is competent to provide express and informed consent for treatment. He/she has the consistent capacity to make well reasoned, willful, and knowing decisions concerning his or her medical or mental health treatment. The person fully and consistently understands the purpose of the admission for examination/placement and is fully capable of personally exercising all rights assured [place] Incompetent to provide express and informed consent to voluntary admission, and this is incompetent to provide express and informed consent to treatment. The person must be transferred to involuntary status and a petition for a guardian advocate filed with the Circuit Court. [] Refusing to provide express and informed consent to voluntary admission but is competent to provide express and informed consent for treatment. The person must be discharged or transferred to involuntary status. Form shall be completed within 24 hours of a person's arrival at the receiving facility and filed in the clinical record of each person: 1. Admitted on a voluntary basis 2. Permitted to provide express and informed consent to his/her own treatment 3. Allowed to transfer from involuntary to voluntary status 4. Prior to permitting a person to consent to his or her own treatment after having been previously found incompetent to consent to treatment. History of Present Illness Capacity: Has Capacity HPI The patient is a 42-year-old woman, domiciled in [facility], single , unemployed, supported by [facility], with an extensive psychiatric history of schizoaffective disorder, borderline personality disorder, multiple psychiatric hospitalizations, last hospitalization here in [place] in May 2017 under the care of Dr. Lowe, documentation reviewed, established outpatient care with [facility] and FACT team, she is on clozapine 200 mg a.m. 400 mg at bedtime, BuSpar 20 twice daily, Zoloft 75 mg, she has multiple suicidal attempts, extensive self cutting behavior without SI, history of poor impulse control, maladaptive coping skills, medical history of IBS, who presents under a Pi[place] act initiated by the [employer]. Patient is a resident of [facility]. She reports that over the past 4 days she has been feeling increasing depression and suicidal ideation as well as auditory hallucinations telling her to cut an artery or overdose on pills. Symptoms are moderate, aggravated by auditory hallucinations with no alleviating factors. Onset 4 days ago. She reports that her family dog is dying of cancer and this is making her feel more depressed. She denies any drug or alcohol use. She has no acute medical complaints at this time. EMR was reviewed. Case was discussed with nurse in charge. Collateral information from [facility], [address] [place] [id number] [address], was obtained. On psychiatric evaluation the patient is calm, cooperative, without goal-directed and logical thought process. She reports that she decided to call the ambulance and come to the hospital because she has been hearing voices telling her to kill herself. The patient reports that she has been experiencing depressed mood in the last week, she has been quite barros, with increased sensitivity to frustration rejection, lack of sleep, poor motivation, lack of appetite, hopelessness, helplessness, and persistent suicidal thoughts with a plan of cutting herself. He says that yesterday she was so upset and irritable, she was about to get a knife and cut herself "but I prefer to come to the ER and avoid problems". She reports that she also has been decompensated of her IBS, with episodic diarrhea and gases. The patient reports having auditory hallucinations of voices telling her to cut herself. She is fully oriented 3. Kind of concrete and childish. She denies the use of illegal drugs or alcohol. Review of Systems Constitutional: DENIES: Diaphoretic episodes, Fatigue, Fever, Weight gain, Weight loss, Chills, Dizziness, Change in appetite, Night Sweats Endocrine: DENIES: Abnorml menstrual pattern, Heat/cold intolerance, Polydipsia , Polyuria, Polyphagia Eyes: DENIES: Blurred vision, Diplopia, Eye inflammation, Eye pain, Vision loss , Photosensitivity, Double Vision Ears, nose, mouth, throat: DENIES: Tinnitus, Hearing loss, Vertigo, Nasal discharge, Oral lesions, Throat pain, Hoarseness, Ear Pain, Running Nose, Epistaxis, Sinus Pain, Toothache, Odynophagia Respiratory: DENIES: Apneas, Cough, Snoring, Wheezing, Hemoptysis, Sputum production, Shortness of breath Cardiovascular: DENIES: Chest pain, Palpitations, Syncope, Dyspnea on Exertion , PND, Lower Extremity Edema, Orthopnea, Claudication Gastrointestinal: DENIES: Abdominal pain, Black stools, Bloody stools, Constipation, Diarrhea, Nausea, Vomiting, Difficulty Swallowing, Anorexia Genitourinary: DENIES: Abnormal vaginal bleeding, Dysmenorrhea, Dyspareunia, Sexual dysfunction, Urinary frequency, Urinary incontinence, Urgency, Hematuria , Dysuria, Nocturia, Vaginal discharge Musculoskeletal: DENIES: Joint pain, Muscle aches, Stiffness, Joint Swelling, Back pain, Neck pain Integumentary: DENIES: Abnormal pigmentation, Pruritus, Rash, Nail changes, Breast masses, Breast skin changes, Nipple discharge Hematologic/lymphatic: DENIES: Bruising, Lymphadenopathy Immunologic/allergic: DENIES: Eczema, Urticaria Neurologic: DENIES: Abnormal gait, Headache, Localized weakness, Paresthesias, Seizures, Speech Problems, Tremor, Poor Balance Psychiatric: COMPLAINS OF: Anxiety, Mood changes, Depression, Hallucinations, Suicidal Ideation Substance Abuse History Drugs/Alcohol past 12 months Patient denies the use of alcohol and illegal drugs Past Family Social History Coded Allergies: No Known Allergies (Verified , 10/27/15) Active Scripts Clozapine (Clozapine) 200 Mg Tab, 400 MG PO HS for Schizophrenia for 30 Days, # 60 TAB 0 Refills Prov:Jamie Lowe MD 05/14/17 Clozapine (Clozapine) 200 Mg Tab, 200 MG PO DAILY for Schizophrenia for 30 Days , #30 TAB 0 Refills Prov:Jamie Lowe MD 05/14/17 Sertraline (Zoloft) 50 Mg Tab, 75 MG PO DAILY for health for 30 Days, #45 TAB Prov:Jamie Lowe MD 05/14/17 Buspirone (Buspirone) 10 Mg Tab, 20 MG PO BID for Anxiety for 30 Days, #120 TAB 0 Refills Prov:Jamie Lowe MD 05/14/17 Reported Medications Loperamide (Anti-Diarrheal) 2 Mg Cap, 2 MG PO DIRECTED, CAP One capsule after each loose stool. Not to exceed 8 capsules per day. 07/17/16 Current Medications Medications (Trade) Dose Ordered Sig/Cory Route Start Time Stop Time Status Last Admin (Buspar) 20 mg BID PO 07/21/17 13:30 UNV (Clozaril) 200 mg DAILY PO 07/21/17 13:30 UNV (Clozaril) 400 mg HS PO 07/21/17 21:00 UNV (Zoloft) 75 mg DAILY PO 07/21/17 13:30 UNV Family Psych History Patient denies family psychiatric history Social History Patient was born and raised in [place], she lives in [facility], unemployed , single, supported by [facility], her highest level of education is a GED Patient's Strengths (min. 2) Active outpatient psychiatric care Physical Exam No tremors, no EPS, no psychomotor agitation or retardation, no gait disturbance Vital Signs Vital Signs Date Time Temp Pulse Resp B/P (MAP) Pulse Ox O2 Delivery O2 Flow Rate FiO2 07/21/17 04:11 98.6 95 18 134/70 (91) 98 Room Air Lab Results Test 07/20/17 20:00 White Blood Count 6.5 TH/MM3 Red Blood Count 4.30 MIL/MM3 Hemoglobin 13.1 GM/DL Hematocrit 38.2 % Mean Corpuscular Volume 88.8 FL Mean Corpuscular Hemoglobin 30.4 PG Mean Corpuscular Hemoglobin Concent 34.2 % Red Cell Distribution Width 14.6 % Platelet Count 248 TH/MM3 Mean Platelet Volume 8.3 FL Neutrophils (%) (Auto) 72.3 % Lymphocytes (%) (Auto) 22.2 % Monocytes (%) (Auto) 5.4 % Eosinophils (%) (Auto) 0.0 % Basophils (%) (Auto) 0.1 % Neutrophils # (Auto) 4.7 TH/MM3 Lymphocytes # (Auto) 1.4 TH/MM3 Monocytes # (Auto) 0.4 TH/MM3 Eosinophils # (Auto) 0.0 TH/MM3 Basophils # (Auto) 0.0 TH/MM3 CBC Comment DIFF FINAL Differential Comment Blood Urea Nitrogen 8 MG/DL Creatinine 0.81 MG/DL Random Glucose 91 MG/DL Total Protein 6.9 GM/DL Albumin 3.9 GM/DL Calcium Level 9.1 MG/DL Alkaline Phosphatase 155 U/L Aspartate Amino Transf (AST/SGOT) 14 U/L Alanine Aminotransferase (ALT/SGPT) 21 U/L Total Bilirubin 0.4 MG/DL Sodium Level 141 MEQ/L Potassium Level 3.6 MEQ/L Chloride Level 106 MEQ/L Carbon Dioxide Level 23.3 MEQ/L Anion Gap 12 MEQ/L Estimat Glomerular Filtration Rate 77 ML/MIN Thyroid Stimulating Hormone 3rd Gen 2.280 uIU/ML Salicylates Level LESS THAN 1.7 MG/DL Urine Opiates Screen NEG Acetaminophen Level LESS THAN 2.0 MCG/ML Urine Barbiturates Screen NEG Urine Amphetamines Screen NEG Urine Benzodiazepines Screen NEG Urine Cocaine Screen NEG Urine Cannabinoids Screen NEG Ethyl Alcohol Level LESS THAN 3 MG/DL Mental Status Examination Appearance: Appropriate Consciousness: Alert Orientation: x4 Motor Activity: Normal gait Speech: Unremarkable Language: Adequate Fund of Knowledge: Adequate Attention and Concentration: Adequate Memory: Unremarkable Mood: Sad Affect: Irritable Thought Process & Associations: Intact Thought Content: Appropriate Hallucination Type: Auditory Delusion Type: None Suicidal Ideation: Yes Suicidal Plan: Yes Suicidal Intention: No Homicidal Ideation: No Homicidal Plan: No Homicidal Intention: No Insight: Poor Judgment: Poor Assessment & Plan Problem List: (1) Schizoaffective disorder, bipolar type ICD Codes: F25.0 - Schizoaffective disorder, bipolar type Status: Chronic Assessment & Plan: On psychiatric evaluation today the patient presents with depressive symptoms consisting in increased sensitivity to frustration and rejection, frequent mood swings, sad mood, generally appears admissions, hopeless, helpless, difficulty to sleep at night and suicidal thoughts with the plan of cutting herself. The patient also report experiencing commanding type auditory hallucinations of voices telling her to kill herself. This is a patient with a extensive psychiatric history of schizoaffective and borderline personality disorder, multiple psychiatric hospitalizations, multiple suicidal attempts, and extensive self cutting behavior without SI, poor coping skill, poor impulse control. The patient has an elevated risk of danger to self, she will be admitted in the for stabilization and safety. I will restart her outpatient medications, clozapine 200 mg in the morning, 400 mg at bedtime, BuSpar 20 mg 3 times daily, Zoloft 75 mg, and will order Clozapine levels. Extensive support, motivation and psychoeducation provided. Patient would be admitted in voluntary basis. Will consult medicine for the management of explosive diarrhea. abrasive worker intervention for psychosocial assessment, collateral information, individual and group therapies, to coordinate safe discharge. Assessment & Plan Estimated LOS: days James Garcia MD Jul 21, 2017 13:41
[2017-07-21] MEDS: cloZAPine 100 MG TAB PO SCH ×2 (14:27→20:39)
[2017-07-21] MEDS: SERTRALINE HCL 50 MG TAB PO SCH (14:28)
[2017-07-21] MEDS: busPIRone HCL 10 MG TAB PO SCH ×2 (14:28→20:39)
[2017-07-21] MEDS: LOPERAMIDE HCL 2 MG CAP PO PRN (17:10)
[2017-07-21] MEDS: REMOVE OLD NICODERM (NICOTINE) PATCH T-DERMAL SCH (21:00)
[2017-07-22 06:08] VITALS: BP 115/70; PULSE 83; RESP 17; TEMP 97.5; O2SAT 99
[2017-07-22 09:00] LABS: BICARBONATE 22.8 MEQ/L (21.0-32.0); BLOOD UREA NITROGEN 7 MG/DL (7-18); CHLORIDE 110 MEQ/L (98-107); CREATININE 0.68 MG/DL (0.50-1.00); GLOMERULAR FILTRATION RATE 94 ML/MIN (>89); GLUCOSE,RANDOM 82 MG/DL (74-106); SODIUM (NA) 142 MEQ/L (136-145)
[2017-07-22] MEDS: NICOTINE 21 MG/24 HR PATCH T-DERMAL SCH (09:00)
[2017-07-22 09:02] LABS: CHOLESTEROL 218 MG/DL (120-200); TRIGLYCERIDES 163 MG/DL (42-150)
[2017-07-22 09:03] LABS: CHOLESTEROL/ HDL RATIO 4.63 RATIO; LDL CHOLESTEROL 138 MG/DL (0-99)
[2017-07-22] MEDS: busPIRone HCL 10 MG TAB PO SCH ×2 (09:15→20:38)
[2017-07-22] MEDS: cloZAPine 100 MG TAB PO SCH ×2 (09:16→20:38)
[2017-07-22] MEDS: SERTRALINE HCL 50 MG TAB PO SCH (09:17)
--- NOTE | 2017-07-22 10:26 | HHI.PYPN ---
Subjective Remarks Patient was seen and case discussed with nursing. Patient is complaining of recurrent auditory hallucinations to kill herself. Patient says this began last week secondary to various stressors such as her dog dying of cancer. She says she feels sad but she is able to ignore the voices and she has no ideation plan or intent today of hurting herself. He is compliant with her medications. Behaving well on the unit. Safety plan reviewed and she can also tell staff if she develops any suicidal thoughts. Eating and sleeping well Mental Status Examination Appearance: Appropriate Consciousness: Alert Orientation: x4 Motor Activity: Normal gait Speech: Unremarkable Language: Adequate Fund of Knowledge: Adequate Attention and Concentration: Adequate Memory: Unremarkable Mood: Sad Affect: Sad Thought Process & Associations: Intact Thought Content: Appropriate Hallucination Type: Auditory Delusion Type: None Suicidal Ideation: No Suicidal Plan: No Suicidal Intention: No Homicidal Ideation: No Homicidal Plan: No Homicidal Intention: No Insight: Poor Judgment: Poor Results Labs Test 07/22/17 07:19 Blood Urea Nitrogen 7 MG/DL Creatinine 0.68 MG/DL Random Glucose 82 MG/DL Calcium Level 9.0 MG/DL Sodium Level 142 MEQ/L Potassium Level 3.9 MEQ/L Chloride Level 110 MEQ/L Carbon Dioxide Level 22.8 MEQ/L Anion Gap 9 MEQ/L Estimat Glomerular Filtration Rate 94 ML/MIN Triglycerides Level 163 MG/DL Cholesterol Level 218 MG/DL LDL Cholesterol 138 MG/DL HDL Cholesterol 47.0 MG/DL Cholesterol/HDL Ratio 4.63 RATIO Vitals/IOs Vital Signs Date Time Temp Pulse Resp B/P (MAP) Pulse Ox O2 Delivery O2 Flow Rate FiO2 07/22/17 06:08 97.5 83 17 115/70 (85) 99 07/21/17 04:11 Room Air Assessment & Plan Problem List: (1) Schizoaffective disorder, bipolar type ICD Codes: F25.0 - Schizoaffective disorder, bipolar type Status: Chronic Assessment & Plan Continue current treatment plan Justification for Cont. Inpt. Patient would decompensate in a less restrictive setting He Abrams DO Jul 22, 2017 10:26
[2017-07-22] MEDS: LOPERAMIDE HCL 2 MG CAP PO PRN ×2 (10:51→20:38)
[2017-07-22 13:46] LABS: HEMOGLOBIN A1C 4.7 % (4.3-6.0)
[2017-07-22 16:57] VITALS: BP 123/76; PULSE 104; RESP 18; TEMP 97.6; O2SAT 98
[2017-07-22] MEDS: REMOVE OLD NICODERM (NICOTINE) PATCH T-DERMAL SCH (21:00)
[2017-07-23 06:08] VITALS: BP 123/67; PULSE 72; RESP 16; TEMP 98.2; O2SAT 99
[2017-07-23] MEDS: busPIRone HCL 10 MG TAB PO SCH ×2 (08:31→20:46)
[2017-07-23] MEDS: LOPERAMIDE HCL 2 MG CAP PO PRN ×2 (08:31→22:21)
[2017-07-23] MEDS: NICOTINE 21 MG/24 HR PATCH T-DERMAL SCH (08:31)
[2017-07-23] MEDS: cloZAPine 100 MG TAB PO SCH ×2 (08:31→20:46)
[2017-07-23] MEDS: SERTRALINE HCL 50 MG TAB PO SCH (08:31)
[2017-07-23 18:07] VITALS: BP 118/72; PULSE 94; RESP 16; TEMP 98.1; O2SAT 99
--- NOTE | 2017-07-23 19:07 | HHI.PYPN ---
Subjective Remarks Reviewed electronic medical records and discussed case with staff. Follow-up was conducted in patient's room. She was found lying the bed depressed. She states she sad because "my mother's dog is dying of cancer". 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 She states that the voices have been back and distract her from doing her work. She reports they have been constant since Sunday. She states that she has been on Clozaril for several years now and she feels it is not as effective as it has been previously. I have increased her evening dose to 500 mg. Mental Status Examination Appearance: Appropriate Consciousness: Alert Orientation: x4 Motor Activity: Normal gait Speech: Unremarkable Language: Adequate Fund of Knowledge: Adequate Attention and Concentration: Adequate Memory: Unremarkable Mood: Sad Affect: Sad Thought Process & Associations: Intact Thought Content: Appropriate Hallucination Type: Auditory Delusion Type: None Suicidal Ideation: No Suicidal Plan: No Suicidal Intention: No Homicidal Ideation: No Homicidal Plan: No Homicidal Intention: No Insight: Poor Judgment: Poor Results Vitals/IOs Vital Signs Date Time Temp Pulse Resp B/P (MAP) Pulse Ox O2 Delivery O2 Flow Rate FiO2 07/23/17 18:07 98.1 94 16 118/72 (87) 99 07/21/17 04:11 Room Air Assessment & Plan Problem List: (1) Schizoaffective disorder, bipolar type ICD Codes: F25.0 - Schizoaffective disorder, bipolar type Status: Chronic Assessment & Plan Estimated LOS: Adjusted Clozaril bedtime dose to 500 mg. Will monitor for therapeutic effect and stabilization. Hopeful for discharge within 3 days Justification for Cont. Inpt. Moving this patient to a lower level of care would likely result and decompensation. She still remains symptomatic. Debora Draper Jul 23, 2017 19:07
[2017-07-23] MEDS: REMOVE OLD NICODERM (NICOTINE) PATCH T-DERMAL SCH (20:44)
[2017-07-24 05:55] VITALS: BP 107/79; PULSE 98; RESP 16; TEMP 98.2
[2017-07-24] MEDS: SERTRALINE HCL 50 MG TAB PO SCH (08:31)
[2017-07-24] MEDS: busPIRone HCL 10 MG TAB PO SCH ×2 (08:31→20:34)
[2017-07-24] MEDS: NICOTINE 21 MG/24 HR PATCH T-DERMAL SCH (08:31)
[2017-07-24] MEDS: cloZAPine 100 MG TAB PO SCH ×2 (08:31→20:34)
[2017-07-24] MEDS: LOPERAMIDE HCL 2 MG CAP PO PRN ×2 (08:40→21:14)
[2017-07-24] MEDS ORDERED: cloZAPine 100 MG TAB PO SCH (09:00)
[2017-07-24 18:13] VITALS: BP 114/73; PULSE 103; RESP 17; TEMP 98; O2SAT 100
--- NOTE | 2017-07-24 19:33 | HHI.PYPN ---
Subjective Remarks Reviewed electronic medical record and discussed case with staff. Follow-up was conducted in patient's room. She was found in her bed awake, alert, and oriented. She continues to endorse the auditory hallucinations. She reports that she attended 2 groups today. She states that she slept "really well". And that her appetite is "a little better". Mental Status Examination Appearance: Appropriate Consciousness: Alert Orientation: x4 Motor Activity: Normal gait Speech: Unremarkable Language: Adequate Fund of Knowledge: Adequate Attention and Concentration: Adequate Memory: Unremarkable Mood: Sad Affect: Sad Thought Process & Associations: Intact Thought Content: Appropriate Hallucination Type: Auditory Delusion Type: None Suicidal Ideation: No Suicidal Plan: No Suicidal Intention: No Homicidal Ideation: No Homicidal Plan: No Homicidal Intention: No Insight: Poor Judgment: Poor Results Vitals/IOs Vital Signs Date Time Temp Pulse Resp B/P (MAP) Pulse Ox O2 Delivery O2 Flow Rate FiO2 07/24/17 18:13 98.0 103 17 114/73 (87) 100 07/21/17 04:11 Room Air Intake and Output 07/24/17 07/24/17 07/25/17 08:00 16:00 00:00 Intake Total 120 ml 360 ml Balance 120 ml 360 ml Assessment & Plan Problem List: (1) Schizoaffective disorder, bipolar type ICD Codes: F25.0 - Schizoaffective disorder, bipolar type Status: Chronic Assessment & Plan Estimated LOS: Patient's medication was titrated yesterday. Continue with current treatment plan and monitor for improvement of symptoms. Days Justification for Cont. Inpt. Moving this patient to a lower level of care would likely result in decompensation. Debora Draper Jul 24, 2017 19:33
[2017-07-24] MEDS: REMOVE OLD NICODERM (NICOTINE) PATCH T-DERMAL SCH (20:34)
[2017-07-25 05:54] VITALS: BP 105/70; PULSE 88; RESP 16; TEMP 98; O2SAT 98
[2017-07-25] MEDS: busPIRone HCL 10 MG TAB PO SCH ×2 (09:10→22:04)
[2017-07-25] MEDS: NICOTINE 21 MG/24 HR PATCH T-DERMAL SCH (09:11)
[2017-07-25] MEDS: SERTRALINE HCL 50 MG TAB PO SCH (09:11)
[2017-07-25] MEDS: cloZAPine 100 MG TAB PO SCH ×2 (09:11→22:04)
[2017-07-25 15:21] VITALS: BP 114/67; PULSE 101; RESP 18; TEMP 98.3; O2SAT 100
[2017-07-25] MEDS: REMOVE OLD NICODERM (NICOTINE) PATCH T-DERMAL SCH (21:00)
[2017-07-26 05:54] VITALS: BP 102/70; PULSE 85; RESP 16; TEMP 98; O2SAT 97
[2017-07-26] MEDS: NICOTINE 21 MG/24 HR PATCH T-DERMAL SCH (09:00)
[2017-07-26] MEDS: busPIRone HCL 10 MG TAB PO SCH ×2 (09:12→20:50)
[2017-07-26] MEDS: cloZAPine 100 MG TAB PO SCH ×2 (09:12→20:51)
[2017-07-26] MEDS: SERTRALINE HCL 50 MG TAB PO SCH (09:13)
--- NOTE | 2017-07-26 09:44 | HHI.PYPN ---
Subjective Remarks This is a note for July 25, 2017. Reviewed electronic medical record and discussed case with staff. Follow-up was conducted in patient's room. Patient was found lying in bed. She is awake, alert, and oriented. She denies any decrease and the frequency of the voices and maintains they still tell her to "kill myself". Reports that she slept well and that her appetite has been fair. She intends on going to therapy today. Mental Status Examination Appearance: Appropriate Consciousness: Alert Orientation: x4 Motor Activity: Normal gait Speech: Unremarkable Language: Adequate Fund of Knowledge: Adequate Attention and Concentration: Adequate Memory: Unremarkable Mood: Sad Affect: Sad Thought Process & Associations: Intact Thought Content: Appropriate Hallucination Type: Auditory Delusion Type: None Suicidal Ideation: No Suicidal Plan: No Suicidal Intention: No Homicidal Ideation: No Homicidal Plan: No Homicidal Intention: No Insight: Poor Judgment: Poor Results Vitals/IOs Vital Signs Date Time Temp Pulse Resp B/P (MAP) Pulse Ox O2 Delivery O2 Flow Rate FiO2 07/26/17 05:54 98.0 85 16 102/70 (81) 97 Assessment & Plan Problem List: (1) Schizoaffective disorder, bipolar type ICD Codes: F25.0 - Schizoaffective disorder, bipolar type Status: Chronic Assessment & Plan Estimated LOS: Patient continues to endorse auditory command hallucinations which instruct her to harm herself. Continue with current treatment plan as medication is not had time to reach a therapeutic dose. Will monitor for decrease in symptoms. Days Justification for Cont. Inpt. Patient symptoms are still present and moving her to a lower level of care would likely result in decompensation. Debora Draper Jul 26, 2017 09:44
--- NOTE | 2017-07-26 16:34 | HHI.PYPN ---
Subjective Remarks Patient seen for follow, chart reviewed. Discussion nursing staff reported the patient compliant with medications, has been seclusive to her room with flat affect, only attending 1 group, continues with command auditory hallucination to kill herself, not showered. Patient was found lying in hospital bed disheveled noted B, cooperative. Patient states that she is feeling "not good" continues with command auditory hallucinations which began earlier this week prior to her admission with stressors related to her recurring onset of her mother's dog dying of cancer and work being stressful. Patient states that she has not showered but plans on doing so tonight, sleeping well, continues report feeling depressed and had a good conversation with the mother over the phone. Review of Systems Except as stated in HPI: all other systems reviewed are Neg Mental Status Examination Appearance: Appropriate Consciousness: Alert Orientation: x4 Motor Activity: Normal gait Speech: Unremarkable Language: Adequate Fund of Knowledge: Adequate Attention and Concentration: Adequate Memory: Unremarkable Mood: Sad Affect: Sad Thought Process & Associations: Intact Thought Content: Appropriate Hallucination Type: Auditory Delusion Type: None Suicidal Ideation: No Suicidal Plan: No Suicidal Intention: No Homicidal Ideation: No Homicidal Plan: No Homicidal Intention: No Insight: Poor Judgment: Poor Results Vitals/IOs Vital Signs Date Time Temp Pulse Resp B/P (MAP) Pulse Ox O2 Delivery O2 Flow Rate FiO2 07/26/17 05:54 98.0 85 16 102/70 (81) 97 Assessment & Plan Problem List: (1) Schizoaffective disorder, bipolar type ICD Codes: F25.0 - Schizoaffective disorder, bipolar type Status: Chronic Assessment & Plan Patient this time continues to endorse feeling depressed, denying any suicide ideations but endorsing command auditory hallucinations to kill herself. We will continue to titrate sertraline to 100 mg p.o. daily for depression, continue rest of medications. Continue to monitor mood and behavior. Patient encouraged to maintain personal hygiene and participate in groups and activities which she agreed. This was planning a progress. Justification for Cont. Inpt. At risk for further decompensation if at lower level of care Discharge Planning Patient return back to her assisted living facility Jamie Lowe MD Jul 26, 2017 16:34
[2017-07-26 17:39] VITALS: BP 130/63; PULSE 101; RESP 18; TEMP 98.8; O2SAT 100
[2017-07-26] MEDS: REMOVE OLD NICODERM (NICOTINE) PATCH T-DERMAL SCH (20:49)
[2017-07-26] MEDS: LOPERAMIDE HCL 2 MG CAP PO PRN (20:50)
[2017-07-27 05:31] VITALS: BP 101/60; PULSE 74; RESP 16; TEMP 98.1; O2SAT 97
[2017-07-27] MEDS: cloZAPine 100 MG TAB PO SCH ×2 (08:52→21:59)
[2017-07-27] MEDS: busPIRone HCL 10 MG TAB PO SCH ×2 (08:52→22:00)
[2017-07-27] MEDS: SERTRALINE HCL 50 MG TAB PO SCH (08:52)
[2017-07-27] MEDS: NICOTINE 21 MG/24 HR PATCH T-DERMAL SCH (08:53)
[2017-07-27] MEDS: LOPERAMIDE HCL 2 MG CAP PO PRN ×2 (09:27→21:59)
[2017-07-27 18:13] VITALS: BP 91/67; PULSE 105; RESP 16; TEMP 97.9; O2SAT 99
--- NOTE | 2017-07-27 18:19 | HHI.PYPN ---
Subjective Remarks Patient seen for follow, chart reviewed. Discussion nursing staff reported the patient was able to shower yesterday but continues to endorse command auditory hallucinations to kill himself. Patient found lying hospital bed noted B, cooperative. Patient states that she continues to feel "the same", continues to endorse command auditory hallucinations to kill herself. Patient reports having slept well last evening, appetite has been "fair", and endorsed having showered yesterday. Patient has not been participating much in groups but only attending psychotherapy group. Patient states he spoke with her mother who continues to be supportive and concern for her well-being at this time. Review of Systems Except as stated in HPI: all other systems reviewed are Neg Mental Status Examination Appearance: Appropriate Consciousness: Alert Orientation: x4 Motor Activity: Normal gait Speech: Unremarkable Language: Adequate Fund of Knowledge: Adequate Attention and Concentration: Adequate Memory: Unremarkable Mood: Sad Affect: Sad Thought Process & Associations: Intact Thought Content: Hallucinations Hallucination Type: Auditory (Command auditory hallucinations to kill herself) Delusion Type: None Suicidal Ideation: No Suicidal Plan: No Suicidal Intention: No Homicidal Ideation: No Homicidal Plan: No Homicidal Intention: No Insight: Fair Judgment: Impulsive Results Labs Test 07/27/17 14:39 Vitals/IOs Vital Signs Date Time Temp Pulse Resp B/P (MAP) Pulse Ox O2 Delivery O2 Flow Rate FiO2 07/27/17 18:13 97.9 105 16 91/67 (75) 99 Intake and Output 07/27/17 07/27/17 07/28/17 08:00 16:00 00:00 Intake Total 240 ml 240 ml Balance 240 ml 240 ml Assessment & Plan Problem List: (1) Schizoaffective disorder, bipolar type ICD Codes: F25.0 - Schizoaffective disorder, bipolar type Status: Chronic Assessment & Plan Patient this time continues to endorse command auditory hallucinations to kill herself, continues to be noted to be slightly dysphoric due to the same. We will increase clozapine to 100 mg a.m./550 mg at bedtime for psychosis. Continue rest of medications. Continue to monitor mood and behavior. Continue to encourage patient to participate in groups and activities while on the unit. Continue to encourage patient to maintain personal hygiene. Discharge planning in progress. Justification for Cont. Inpt. At risk for further decompensation if at lower level of care Discharge Planning Patient return back to her [facility] when psychiatrically stable. Jamie Loew MD Jul 27, 2017 18:19
[2017-07-27] MEDS: REMOVE OLD NICODERM (NICOTINE) PATCH T-DERMAL SCH (21:00)
[2017-07-28 06:26] VITALS: BP 113/62; PULSE 78; RESP 16; TEMP 98.1; O2SAT 100
--- NOTE | 2017-07-28 09:26 | HHI.PYPN ---
Subjective Remarks Chart reviewed and discussed with MADDIE Peralta. Patient is in her bed with the covers over her head. She states that she is sleeping well and appetite is fair. She endorses that she is still hearing voices and they are telling her to kill herself. She was encouraged to get out of bed. She stated that she would try to participate in afternoon group. She states that she lives at [facility] and she likes it there. Mental Status Examination Appearance: Appropriate Consciousness: Alert Orientation: x4 Motor Activity: Normal gait Speech: Unremarkable Language: Adequate Fund of Knowledge: Adequate Attention and Concentration: Adequate Memory: Unremarkable Mood: Sad Affect: Sad Thought Process & Associations: Intact Thought Content: Hallucinations Hallucination Type: Auditory (Command auditory hallucinations to kill herself) Delusion Type: None Suicidal Ideation: No Suicidal Plan: No Suicidal Intention: No Homicidal Ideation: No Homicidal Plan: No Homicidal Intention: No Insight: Fair Judgment: Impulsive Results Labs Test 07/27/17 14:39 Vitals/IOs Vital Signs Date Time Temp Pulse Resp B/P (MAP) Pulse Ox O2 Delivery O2 Flow Rate FiO2 07/28/17 06:26 98.1 78 16 113/62 (79) 100 Intake and Output 07/28/17 07/28/17 07/29/17 08:00 16:00 00:00 Intake Total 120 ml Balance 120 ml Assessment & Plan Problem List: (1) Schizoaffective disorder, bipolar type ICD Codes: F25.0 - Schizoaffective disorder, bipolar type Status: Chronic Assessment & Plan Patient continues to have command hallucinations. She is sleeping well and eating is fair. Patient states that she feels " safe" here , but the voices are bothering her. She is medication compliant. Estimated LOS: days Justification for Cont. Inpt. Moving patient to a lower level of care may result in her decompensation. Yesenia Frausto Jul 28, 2017 09:26
[2017-07-28] MEDS: busPIRone HCL 10 MG TAB PO SCH ×2 (09:43→20:33)
[2017-07-28] MEDS: cloZAPine 100 MG TAB PO SCH ×2 (09:44→20:34)
[2017-07-28] MEDS: SERTRALINE HCL 50 MG TAB PO SCH (09:45)
[2017-07-28] MEDS: NICOTINE 21 MG/24 HR PATCH T-DERMAL SCH (10:03)
[2017-07-28] MEDS: LOPERAMIDE HCL 2 MG CAP PO PRN ×2 (10:03→20:33)
[2017-07-28 18:19] VITALS: BP 105/63; PULSE 126; RESP 20; TEMP 98; O2SAT 100
[2017-07-28] MEDS: REMOVE OLD NICODERM (NICOTINE) PATCH T-DERMAL SCH (20:36)
[2017-07-29 05:31] VITALS: BP 101/57; PULSE 74; RESP 20; TEMP 97.1; O2SAT 100
[2017-07-29] MEDS: NICOTINE 21 MG/24 HR PATCH T-DERMAL SCH (09:00)
[2017-07-29] MEDS: SERTRALINE HCL 50 MG TAB PO SCH (09:57)
[2017-07-29] MEDS: cloZAPine 100 MG TAB PO SCH ×2 (09:57→20:29)
[2017-07-29] MEDS: busPIRone HCL 10 MG TAB PO SCH ×2 (09:57→20:28)
--- NOTE | 2017-07-29 13:12 | HHI.PYPN ---
Subjective Remarks Reviewed electronic medical record and discussed case with staff. Follow-up was conducted in patient's room. Patient found lying in bed. She states that she feels much better today and denies any auditory hallucinations today. She reports that her appetite has been good and she has been sleeping good. She reports that she took a shower yesterday and is planning on attending psychotherapy today. There is no indication of internal stimulation or thought blocking. She reports that she is hopeful for discharge tomorrow back to her facility. Mental Status Examination Appearance: Appropriate Consciousness: Alert Orientation: x4 Motor Activity: Normal gait Speech: Unremarkable Language: Adequate Fund of Knowledge: Adequate Attention and Concentration: Adequate Memory: Unremarkable Mood: Sad Affect: Sad Thought Process & Associations: Intact Thought Content: Hallucinations Hallucination Type: Auditory (Command auditory hallucinations to kill herself) Delusion Type: None Suicidal Ideation: No Suicidal Plan: No Suicidal Intention: No Homicidal Ideation: No Homicidal Plan: No Homicidal Intention: No Insight: Fair Judgment: Impulsive Results Vitals/IOs Vital Signs Date Time Temp Pulse Resp B/P (MAP) Pulse Ox O2 Delivery O2 Flow Rate FiO2 07/29/17 05:31 97.1 74 20 101/57 (72) 100 Intake and Output 07/29/17 07/29/17 07/30/17 08:00 16:00 00:00 Intake Total 360 ml Balance 360 ml Assessment & Plan Problem List: (1) Schizoaffective disorder, bipolar type ICD Codes: F25.0 - Schizoaffective disorder, bipolar type Status: Chronic Assessment & Plan Estimated LOS: Patient reports improvement in symptoms. Her auditory hallucinations are gone. She is hopeful for discharge tomorrow. Continue with current treatment plan. Patient will be evaluated by her attending psychiatrist tomorrow. Days Justification for Cont. Inpt. Moving this patient to a less restrictive environment would likely result in a decompensation. Debora Draper Jul 29, 2017 13:12
[2017-07-29 18:11] VITALS: BP 111/74; PULSE 101; RESP 18; TEMP 97.4; O2SAT 99
[2017-07-29] MEDS: REMOVE OLD NICODERM (NICOTINE) PATCH T-DERMAL SCH (20:29)
[2017-07-29] MEDS: LOPERAMIDE HCL 2 MG CAP PO PRN (20:30)
[2017-07-30 05:39] VITALS: BP 104/63; PULSE 69; RESP 17; TEMP 97.8; O2SAT 100
[2017-07-30] MEDS: NICOTINE 21 MG/24 HR PATCH T-DERMAL SCH (09:00)
[2017-07-30] MEDS: cloZAPine 100 MG TAB PO SCH (09:16)
[2017-07-30] MEDS: SERTRALINE HCL 50 MG TAB PO SCH (09:17)
[2017-07-30] MEDS: busPIRone HCL 10 MG TAB PO SCH (09:17)
[2017-07-30] MEDS: LOPERAMIDE HCL 2 MG CAP PO PRN (09:22)
[2017-07-30] MEDS ORDERED: BUSP10TA PO (12:25)
[2017-07-30] MEDS ORDERED: CLOZ100T PO ×2 (12:25)
[2017-07-30] MEDS ORDERED: SERT-129 PO (12:25)
--- NOTE | 2017-07-30 15:26 | PD.TTN ---
Patient Problems 1. Discharge planning 2. Medication compliance 3. Knowledge deficit 4. Lack of coping skills Progress Toward Goals Provider Present: Dr. Luda Lowe Provider Input: 07/30/17 if pt had a good weekend, discharge to lower level of care can be arranged, if still symtomatic can remain Nurse(s) Input: 07/30 med compliant, cooperative, pleasant today and motivated for discharge, improved over weekend Psychiatric Counselors Present: Ellen Meredith LCSW Psych Therapist Input: 07/30 discharge arranged with [facility] and if stable can be picked up today and return to her [facility] Ellen Meredith LCSW Jul 30, 2017 15:26
--- NOTE | 2017-07-30 17:55 | HHI.DS ---
Psychiatry Discharge Summary Inpatient Psychiatric care?: Yes Advance Directive: No Reason Not Provided: DOESN'T HAVE ONE Mental Health AdvanceDirective: No Health Care Proxy: No Admission Admission Date Jul 21, 2017 at 13:24 Admission Diagnosis: (1) Schizoaffective disorder, bipolar type ICD Code: F25.0 - Schizoaffective disorder, bipolar type Brief History The patient is a 42-year-old woman, domiciled in [facility], single , unemployed, supported by [facility], with an extensive psychiatric history of schizoaffective disorder, borderline personality disorder, multiple psychiatric hospitalizations, last hospitalization here in [place] in May 2017 under the care of Dr. Lowe, documentation reviewed, established outpatient care with [facility] and [facility] team, she is on clozapine 200 mg a.m. 400 mg at bedtime, BuSpar 20 twice daily, Zoloft 75 mg, she has multiple suicidal attempts, extensive self cutting behavior without SI, history of poor impulse control, maladaptive coping skills, medical history of IBS, who presents under a Piper act initiated by the [employer]. Patient is a resident of [facility]. She reports that over the past 4 days she has been feeling increasing depression and suicidal ideation as well as auditory hallucinations telling her to cut an artery or overdose on pills. Symptoms are moderate, aggravated by auditory hallucinations with no alleviating factors. Onset 4 days ago. She reports that her family dog is dying of cancer and this is making her feel more depressed. She denies any drug or alcohol use. She has no acute medical complaints at this time. EMR was reviewed. Case was discussed with nurse in charge. Collateral information from [facility], [address] [place] [id number] l, was obtained. On psychiatric evaluation the patient is calm, cooperative, without goal-directed and logical thought process. She reports that she decided to call the ambulance and come to the hospital because she has been hearing voices telling her to kill herself. The patient reports that she has been experiencing depressed mood in the last week, she has been quite barros, with increased sensitivity to frustration rejection, lack of sleep, poor motivation, lack of appetite, hopelessness, helplessness, and persistent suicidal thoughts with a plan of cutting herself. He says that yesterday she was so upset and irritable, she was about to get a knife and cut herself "but I prefer to come to the ER and avoid problems". She reports that she also has been decompensated of her IBS, with episodic diarrhea and gases. The patient reports having auditory hallucinations of voices telling her to cut herself. She is fully oriented 3. Kind of concrete and childish. She denies the use of illegal drugs or alcohol. Tobacco Use In Past 30 Days: 5 or More Cigarettes/Day Alcohol Use: Never Hospital Course The patient is a 42-year-old woman, domiciled in [facility], single , unemployed, supported by [facility], with an extensive psychiatric history of schizoaffective disorder, borderline personality disorder, multiple psychiatric hospitalizations, last hospitalization here in [place] in May 2017 under the care of Dr. Lowe, documentation reviewed, established outpatient care with [facility] and [facility] team, she is on clozapine 200 mg a.m. 400 mg at bedtime, BuSpar 20 twice daily, Zoloft 75 mg, she has multiple suicidal attempts, extensive self cutting behavior without SI, history of poor impulse control, maladaptive coping skills, medical history of IBS, who presents under a Piper act initiated by the Police [employer] which patient was transferred to the inpatient psychiatry unit for further evaluation and management. Patient was continued on clozapine and titrated to 200mg daily/ 550mg PO HS, sertraline which was titrated to 100mg PO daily, buspirone 20mg PO BID which patient tolerated well and was adherent to medication regimen and noted with improved mood, cessation of depressed mood nor having any further auditory hallucinations nor any suicidal ideations. He denied any further psychotic symptoms nor any suicidal or homicidal ideations. Patient was noted to care for self with adequate self hygiene and noted to have appropriate interactions and responses with staff and was future oriented to remain stable and to engage in outpatient services for support and continued stabilization. Upon discharge patient stated feeling good, noted to be calm and cooperative with staff, denied any perceptual disturbances, denied any delusions; SI or HI. Patient was counseled importance of engaging in continued adherence with treatment which patient would benefit from and agreed to be connected to through outpatient provider. She agreed to continuing medical recommendations, treatment and cooperate for continuity of care. Patient; denies SI, HI, AVH or delusions. Supportive psychotherapy provided. Suicide and violence risk assessment on day of discharge both suggest lower imminent risk, and the patient's level of function is adequate for planned level of outpatient care. Patient has maximized benefit from this inpatient psychiatric hospital stay and to return to psychiatric emergency room for any concerning psychiatric symptoms. Patient agrees with plan. Results Blood Pressure 104 / 63 Vital Signs Date Time Temp Pulse Resp B/P (MAP) Pulse Ox O2 Delivery O2 Flow Rate FiO2 07/30/17 05:39 97.8 69 17 104/63 (77) 100 Laboratory Results Test 07/22/17 07:19 Cholesterol Level 218 MG/DL (120-200) HDL Cholesterol 47.0 MG/DL (40.0-60.0) Hemoglobin A1c 4.7 % (4.3-6.0) LDL Cholesterol 138 MG/DL (0-99) Triglycerides Level 163 MG/DL (42-150) Summary of Procedures None Pending results at discharge: No Medications # of Antipsychotic meds at D/C: 1 Approp Antipsych med options 1 - Minimum of three failed multiple trials of monotherapy. 2 - Documented plan to taper to monotherapy due to previous use of multiple meds OR cross-taper in progress at D/C. 3 - Documentation of augmentation of Clozapine. 4 - Justification other than those listed in allowable values 1-3, document here : Discharge Discharge Date: Jul 30, 2017 Discharge Diagnosis: (1) Schizoaffective disorder, bipolar type ICD Code: F25.0 - Schizoaffective disorder, bipolar type Status: Chronic Pt Condition on Discharge: Stable Discharge Disposition: Discharge Home Discharge Instructions Diet Instructions: As Tolerated, No Restrictions Activities you can perform: Regular-No Restrictions Scheduled Appointment: [facility] Discharge Time > 30 minutes Mental Status Examination Appearance: Appropriate Consciousness: Alert Orientation: x4 Motor Activity: Normal gait Speech: Unremarkable Language: Adequate Fund of Knowledge: Adequate Attention and Concentration: Adequate Memory: Unremarkable Mood: Appropriate Affect: Appropriate Thought Process & Associations: Intact, Goal directed, Linear Thought Content: Appropriate Hallucination Type: None Delusion Type: None Suicidal Ideation: No Suicidal Plan: No Suicidal Intention: No Homicidal Ideation: No Homicidal Plan: No Homicidal Intention: No Insight: Fair Judgment: Impulsive Discharge/Advance Care Plan Health Problems: (1) Schizoaffective disorder, bipolar type Goals to promote your health * To prevent worsening of your condition and complications * To maintain your health at the optimal level Directions to meet your goals Take your medications as prescribed Follow your dietary instruction Follow activity as directed Keep your appointments as scheduled Take your immunizations and boosters as scheduled If your symptoms worsen call your PCP, if no PCP go to Urgent Care Center or Emergency Room For 28/08 questions related to your inpatient stay or results of tests pending at discharge, please contact Dr. Jamie Lowe at Smoking is Dangerous to Your Health. Avoid second hand smoking Jamie Lowe MD Jul 30, 2017 17:54
== END 2017-07-30 14:05 | disposition home or self-care (01) | DRG 885 ==
LOC: NEDAMB 19:10 → NEDA 07-21 13:24 → H260 07-21 13:36
PROVIDERS: ADMIT Student in an Organized Health Care Education/Training Program; ATTEND Student in an Organized Health Care Education/Training Program
DX: F25.0 Schizoaffective disorder, bipolar type (principal); R45.851 Suicidal ideations; F41.9 Anxiety disorder, unspecified; K58.0 Irritable bowel syndrome with diarrhea; F17.210 Nicotine dependence, cigarettes, uncomplicated; F60.3 Borderline personality disorder; K21.9 Gastro-esophageal reflux disease without esophagitis; Z91.5 Personal history of self-harm
CPT/HCPCS: 80048; 80053; 80061; 80159; 80307; 83036; 84443; 84703; 85025; 99285; G0480

== ENCOUNTER 2017-10-27 17:05 | Inpatient (IN) ==
[2017-10-27 18:23] LABS: Baso % (Auto) 0.1 % (0.0-2.0); Hemoglobin 14.7 gm/dL (11.6-15.3); Lymph # (Auto) 1.3 th/mm3 (1.0-4.8); Mean Corpuscular HGB Conc 34.2 % (32.0-36.0); Mean Corpuscular Hemoglobin 31.4 pg (27.0-34.0); Mean Corpuscular Volume 91.9 fL (80.0-100.0); Mean Platelet Volume 8.6 fL (7.0-11.0); Mono # (Auto) 0.3 th/mm3 (0.0-0.9); Mono % (Auto) 4.2 % (0.0-8.0); Neut # (Auto) 5.2 th/mm3 (1.8-7.7); Neut % (Auto) 76.7 % (16.0-70.0); Platelet Count 173 th/mm3 (150-450); Red Blood Count 4.68 mil/mm3 (4.00-5.30); Red Cell Distribution Width 14.3 % (11.6-17.2); White Blood Count 6.7 th/mm3 (4.0-11.0)
[2017-10-27 18:31] LABS: Amphetamine Screen,Urine Neg (Neg); Barbiturate Screen,Urine Neg (Neg); Cannabinoid Screen,Urine Neg (Neg); Cocaine Screen,Urine Neg (Neg)
[2017-10-27 18:33] LABS: Opiate Screen,Urine Neg (Neg)
--- NOTE | 2017-10-27 18:38 | ED ---
HPI General Chief Complaint: Psychiatric Symptoms Stated Complaint: HHPD/Psych Eval Time Seen by Provider: 10/27/17 17:49 Source: patient Mode of arrival: ambulatory Limitations: no limitations History of Present Illness HPI Narrative: 42-year-old female with history of schizophrenia presents to the emergency department for evaluation as a Piper act. According to Piper act, patient has had hallucinations telling her to kill herself. She states they are becoming worse. She states this may have happened because she started a job that stressed her out. She states compliance with her medications. Denies alcohol or illicit drug use. MD complaint: suicidal ideation and feels depressed Duration: constant History of same: Yes Relieving factors: none Exacerbating factors: none Context: significant life stressor Associated psychiatric symptoms: depression and suicidal ideation Related Data Home Medications Medication Instructions Recorded Confirmed benztropine 2 mg PO HS 10/27/17 10/27/17 buspirone 10 mg PO BID 10/27/17 10/27/17 clozapine 200 mg PO QAM 10/27/17 10/27/17 clozapine 550 mg PO HS 10/27/17 10/27/17 loperamide 2 mg PO BID 10/27/17 10/27/17 paliperidone palmitate [Invega 234 mg IM QMONTH 10/27/17 10/27/17 Sustenna] sertraline 200 mg PO DAILY 10/27/17 10/27/17 Allergies Allergy/AdvReac Type Severity Reaction Status Date / Time No Known Allergies Allergy Uncoded 10/27/15 18:14 Review of Systems ROS: all other systems reviewed are negative [facility] Medical History Medical History Borderline personality disorder (Acute) IBS (irritable bowel syndrome) (Acute) Schizophrenia (Acute) Family History Family History Other Anxiety disorder Depression Family history of breast cancer Family history of cancer Social History Social History Substance History: No History of Abuse Second Hand Smoke Exposure: Yes Smoking Status: Current every day smoker Tobacco Type: Cigarettes How Often Do You Have a Drink Containing Alcohol: Never Recent Out of Country Travel within the Last 8 Weeks: No Immunization History Tetanus Immunization: Unsure Hx Influenza Vaccine This Season: No Exam Narrative Exam Narrative: GENERAL: WD, WN in NAD SKIN: Focused skin assessment warm/dry. HEAD: Atraumatic. Normocephalic. EYES: Pupils equal and round. No scleral icterus. No injection or drainage. ENT: No nasal bleeding or discharge. Mucous membranes pink and moist. NECK: Trachea midline. No JVD. CARDIOVASCULAR: Regular rate and rhythm. No murmur appreciated. RESPIRATORY: No accessory muscle use. Clear to auscultation. Breath sounds equal bilaterally. GASTROINTESTINAL: Abdomen soft, non-tender, nondistended. Hepatic and splenic margins not palpable. MUSCULOSKELETAL: No obvious deformities. No clubbing. No cyanosis. No edema. NEUROLOGICAL: Awake and alert. No obvious cranial nerve deficits. Motor grossly within normal limits. Normal speech. Psych Appearance: grossly normal Mental Status: mental status grossly normal Speech and Movement: catatonic and speech clear Mood: euthymic mood Attitude: cooperative Thought Process: normal Thought Content: hallucinations Judgment: fair Course Initial Documented Vital Signs Temperature 98.9 F 10/27/17 17:18 Pulse Rate 113 H 10/27/17 17:18 Respiratory Rate 16 10/27/17 17:18 Blood Pressure 120/80 10/27/17 17:18 Pulse Oximetry 97 10/27/17 17:18 Last Documented Vital Signs Temperature 97.7 F 10/28/17 11:50 Pulse Rate 111 H 10/28/17 11:50 Respiratory Rate 18 10/28/17 11:50 Blood Pressure 124/84 10/28/17 12:00 Pulse Oximetry 96 10/28/17 12:00 Medical Decision Making MDM Narrative Medical decision making narrative: 39-year-old female well-known to this emergency department presents emergency department for evaluation as a Piper act. Patient states she has increased hallucinations that are telling her to kill herself. She states compliance medications. She believes that this may have occurred because she has started 2 jobs that have stressed her out. Labs are ordered for evaluation. She is medically cleared to see psych. Medical Screen Exam Complete: Yes Emergency Medical Condition: Yes Differential Diagnosis Differential Diagnosis: Malingering, psychosis, hallucinations, medication noncompliance, schizophrenia Lab Data Result diagrams: 10/27/17 17:25 10/27/17 17:25 Lab Results 10/27/17 10/27/17 10/27/17 Range/Units 17:25 17:25 18:08 WBC 6.7 (4.0-11.0) th/mm3 RBC 4.68 (4.00-5.30) mil/mm3 Hgb 14.7 (11.6-15.3) gm/dL Hct 43.0 (35.0-46.0) % MCV 91.9 (80.0-100.0) fL MCH 31.4 (27.0-34.0) pg MCHC 34.2 (32.0-36.0) % RDW 14.3 (11.6-17.2) % Plt Count 173 (150-450) th/mm3 MPV 8.6 (7.0-11.0) fL Neut % (Auto) 76.7 H (16.0-70.0) % Lymph % (Auto) 19.0 (9.0-44.0) % [place] % (Auto) 4.2 (0.0-8.0) % Eos % (Auto) 0.0 (0.0-4.0) % Baso % (Auto) 0.1 (0.0-2.0) % Neut # (Auto) 5.2 (1.8-7.7) th/mm3 Lymph # (Auto) 1.3 (1.0-4.8) th/mm3 [place] # (Auto) 0.3 (0.0-0.9) th/mm3 Eos # (Auto) 0.0 (0.0-0.4) th/mm3 Baso # (Auto) 0.0 (0.0-0.2) th/mm3 WBC Differential . Differential Comment Auto diff final Sodium 138 (136-145) meq/L Potassium 3.8 (3.5-5.1) meq/L Chloride 106 (98-107) meq/L Carbon Dioxide 22.3 (21.0-32.0) meq/L Anion Gap 10 (5-15) meq/L BUN 7 (7-18) mg/dL Creatinine 0.87 (0.50-1.00) mg/dL Estimated GFR 71 L (>89) mL/min Random Glucose 110 H (74-106) mg/dL Calcium 8.9 (8.5-10.1) mg/dL Total Bilirubin 0.4 (0.2-1.0) mg/dL AST 14 L (15-37) U/L ALT 15 (10-53) U/L Alkaline Phosphatase 96 (45-117) U/L Total Protein 6.9 (6.4-8.2) g/dL Albumin 3.9 (3.4-5.0) g/dL TSH 2.280 (0.358-3.740) uIU/mL Urine Opiates Screen Neg (Neg) Ur Barbiturates Screen Neg (Neg) Ur Amphetamines Screen Neg (Neg) U Benzodiazepines Scrn Neg (Neg) Urine Cocaine Screen Neg (Neg) U Cannabinoids Screen Neg (Neg) Serum Alcohol Less than 3 (0-5) mg/dL Discharge Plan Discharge Disposition Patient Disposition: 30 Still Patient Discharge Condition Condition: Stable Discharge Details Diagnosis: Hallucinations, Suicidal ideation Physicians Team ED Provider: Valeri Hernandez ED Midlevel Provider: Cindy Hawkins Primary Care Provider: RAHAT, Attending Provider: James Garcia Discharge Interventions Interventions: ED Discharge Assessment Last Done: 10/28/17 11:06 Vital Signs Last Done: 10/28/17 02:07 Status ED Status: Left Department Discharge Information Discharge Date/Time: 10/28/17 11:15
[2017-10-27 18:44] LABS: Alanine Aminotransferase 15 U/L (10-53); Albumin 3.9 g/dL (3.4-5.0); Anion Gap 10 meq/L (5-15); Aspartate Aminotransferase 14 U/L (15-37); Blood Urea Nitrogen 7 mg/dL (7-18); Calcium 8.9 mg/dL (8.5-10.1); Carbon Dioxide 22.3 meq/L (21.0-32.0); Chloride 106 meq/L (98-107); Glomerular Filtration Rate 71 mL/min (>89); Glucose,Random 110 mg/dL (74-106); Potassium 3.8 meq/L (3.5-5.1); Sodium 138 meq/L (136-145)
[2017-10-27 18:54] LABS: Alkaline Phosphatase 96 U/L (45-117); Total Protein 6.9 g/dL (6.4-8.2)
[2017-10-28] MEDS ORDERED: Bisacodyl 10 MG Supp RECTAL PRN (09:41)
[2017-10-28] MEDS ORDERED: Aluminum/Magnesium/Simethacone Susp 30 ML UDC PO PRN (09:41)
--- NOTE | 2017-10-28 11:40 | P.HPPSY ---
Provisional Diagnosis Admission Date: October 28, 2017 09:59 [place] I.: Schizophrenia, borderline personality disorder, intellectual disability [place] II.: Borderline personality disorder, intellectual disabled [place] III.: IBS Competence Certification of Person's Competence To Provide Express and Informed Consent I have personally examined Chelo Norman, a person being served at [facility] on, October 28, 2017 1136. Express and informed consent means consent voluntarily given in writing, by a competent person, after sufficient explanation and disclosure of the subject matter involved to enable the person to make a knowing and willful decision without any element of force, fraud, deceit, duress, or other form of constraint or coercion. This person is 18 years of age or older, is not now known to be incompetent to consent to treatment with a guardian advocate, and does not have a health care surrogate or proxy currently making medical treatment decisions. I have found this person to be one of the following: [] Competent to provide express and informed consent, as defined above, for voluntary admission to this facility and is competent to provide express and informed consent for treatment. He/she has the consistent capacity to make well reasoned, willful, and knowing decisions concerning his or her medical or mental health treatment. The person fully and consistently understands the purpose of the admission for examination/placement and is fully capable of personally exercising all rights assured [place] Incompetent to provide express and informed consent to voluntary admission, and this is incompetent to provide express and informed consent to treatment. The person must be transferred to involuntary status and a petition for a guardian advocate filed with the Circuit Court. [x] Refusing to provide express and informed consent to voluntary admission but is competent to provide express and informed consent for treatment. The person must be discharged or transferred to involuntary status. Form shall be completed within 24 hours of a person's arrival at the receiving facility and filed in the clinical record of each person: 1. Admitted on a voluntary basis 2. Permitted to provide express and informed consent to his/her own treatment 3. Allowed to transfer from involuntary to voluntary status 4. Prior to permitting a person to consent to his or her own treatment after having been previously found incompetent to consent to treatment. History of Present Illness Capacity: Has capacity History of Present Illness: The patient is a 42-year-old woman, domiciled in [facility], single , unemployed, supported by [facility], with an extensive psychiatric history of schizoaffective disorder, borderline personality disorder, multiple psychiatric hospitalizations, last hospitalization here in [place] in July 2017 under the care of Dr. Lowe, documentation reviewed, established outpatient care with [facility] and FACT team, she is on clozapine 200 mg a.m. 525 mg at bedtime, BuSpar 20 twice daily, Zoloft 200 mg, she has multiple suicidal attempts, extensive self- cutting behavior without SI, history of poor impulse control, maladaptive coping skills, medical history of IBS, who presents to the emergency department for evaluation as a Piper act. According to Piper act, patient has had hallucinations telling her to kill herself. She states they are becoming worse. She states this may have happened because she started a job that stressed her out. EMR was reviewed. Case was discussed with nurse in charge. Collateral information from [facility], [address] [place] [id number] l, was obtained. On psychiatric evaluation the patient is calm, cooperative, without goal-directed and logical thought process. She reports that she decided to call the ambulance and come to the hospital because she has been hearing voices telling her to kill herself. The patient reports that she has been experiencing depressed mood in the last week, she has been quite barros, with increased sensitivity to frustration rejection, lack of sleep , poor motivation, lack of appetite, hopelessness, helplessness, and persistent suicidal thoughts with a plan of cutting herself. He says that yesterday she was so upset and irritable, she was about to get a knife and cut herself "but I prefer to come to the ER and avoid problems". She reports that she also has been decompensated of her IBS, with episodic diarrhea and gases. The patient reports having auditory hallucinations of voices telling her to cut herself. She is fully oriented 3. Kind of concrete and childish. She denies the use of illegal drugs or alcohol. PPHx: with an extensive psychiatric history of schizoaffective disorder, borderline personality disorder, multiple psychiatric hospitalizations, last hospitalization here in [place] in July 2017 under the care of Dr. Lowe, documentation reviewed, established outpatient care with [facility] and FACT team, she is on clozapine 200 mg a.m. 525 mg at bedtime, BuSpar 20 twice daily, Zoloft 200 mg, she has multiple suicidal attempts, extensive self-cutting behavior without SI, history of poor impulse control, maladaptive coping skills PMHx: medical history of IBS Substance Hx: Denies the use of illegal drugs or alcohol Family Hx: Mother suffers of depression Social Hx: 42-year-old woman, domiciled in [facility], single, unemployed, supported by SSI - Inpatient Certification I certify that the inpatient services were ordered in accordance with Medicare regulations governing the order. This includes certification that hospital inpatient services are reasonable and necessary and in the case of services not specified as inpatient-only under 42 CFR 419.22(n), that they are appropriately provided as inpatient services in accordance to with the 2-midnight benchmark under 43 CFR 412.3(e) I certify that inpatient psychiatric hospital services are medically necessary. Evaluation and treatment and/or diagnostic testing are expected to improve the patient's condition. The patient needs on a daily basis, active treatment furnished directly by or requiring the supervision of inpatient psychiatric facility personnel. Estimated Total Length of Stay (Days): 7 Plans for Post Hospital Care: jail Review of Systems All other systems reviewed negative except as stated in HPI Psychiatric: Reports anxiety, Reports depression, Reports hearing things others do not hear, Reports irritability, Reports paranoia, Reports thoughts of hurting /killing yourself [facility] - History History Provided By: Patient - Medical History Medical History: Medical History (Last Updated 10/27/17 @ 17:21 by Hiwot Payne RN) Borderline personality disorder IBS (irritable bowel syndrome) Schizophrenia - Family History Family History: Family History (Last Updated 10/27/17 @ 17:33 by Hiwot Payne RN) Other Anxiety disorder Depression Family history of breast cancer Family history of cancer - Tobacco History Second Hand Smoke Exposure: No Tobacco Use In Past 30 Days: Yes Smoking Status: Heavy tobacco smoker Tobacco Type: Cigarettes - Alcohol History How Often Do You Have a Drink Containing Alcohol: Never - Substance Use History Substance History: No History of Abuse - Travel History Recent Travel Out of the Country Within the Last 8 Weeks: No - Immunization History Tetanus Immunization: Unsure Hx Influenza Vaccine This Season: No Medications and Allergies Active Medications: Active Medications Al Hydrox/Mg Hydrox/Simethicone (Mag-Al Plus Susp Liq) 30 ml PO Q6H PRN PRN Reason: DYSPEPSIA Al Hydroxide/Mg Hydroxide (Milk Of Magnesia Liq) 30 ml PO Q12H PRN PRN Reason: Mild Constipation Benztropine Mesylate (Cogentin) 2 mg PO HS COUNT INCLUDES THE [facility] Bisacodyl (Dulcolax Supp) 10 mg RECTAL DAILY PRN PRN Reason: SEVERE CONSITIPATION Buspirone HCl (Buspar) 10 mg PO BID COUNT INCLUDES THE [facility] Clozapine (Clozaril) 200 mg PO DAILY COUNT INCLUDES THE [facility] Clozapine (Clozaril) 550 mg PO HS COUNT INCLUDES THE [facility] Lactulose (Lactulose Liq) 30 ml PO DAILY PRN PRN Reason: SEVERE CONSITIPATION Senna/Docusate Sodium (Allie-Colace) 1 tab PO BID COUNT INCLUDES THE [facility] Sennosides (Senokot) 17.2 mg PO Q12H PRN PRN Reason: Moderate Constipation Sertraline HCl (Zoloft) 200 mg PO DAILY COUNT INCLUDES THE [facility] Allergies Allergy/AdvReac Type Severity Reaction Status Date / Time No Known Allergies Allergy Uncoded 10/27/15 18:14 Home Medications Medication Instructions Recorded Confirmed Type benztropine 2 mg PO HS 10/27/17 10/27/17 History buspirone 10 mg PO BID 10/27/17 10/27/17 History clozapine 200 mg PO QAM 10/27/17 10/27/17 History clozapine 550 mg PO HS 10/27/17 10/27/17 History loperamide 2 mg PO BID 10/27/17 10/27/17 History paliperidone palmitate [Invega 234 mg IM QMONTH 10/27/17 10/27/17 History Sustenna] sertraline 200 mg PO DAILY 10/27/17 10/27/17 History Results - Labs CBC & Chem 7: 10/27/17 17:25 10/27/17 17:25 Labs: Laboratory Results - last 24 hr 10/27/17 10/27/17 10/27/17 17:25 17:25 18:08 WBC 6.7 RBC 4.68 Hgb 14.7 Hct 43.0 MCV 91.9 MCH 31.4 MCHC 34.2 RDW 14.3 Plt Count 173 MPV 8.6 Neut % (Auto) 76.7 H Lymph % (Auto) 19.0 Tyrrell % (Auto) 4.2 Eos % (Auto) 0.0 Baso % (Auto) 0.1 Neut # (Auto) 5.2 Lymph # (Auto) 1.3 Tyrrell # (Auto) 0.3 Eos # (Auto) 0.0 Baso # (Auto) 0.0 WBC Differential . Differential Comment Auto diff final Sodium 138 Potassium 3.8 Chloride 106 Carbon Dioxide 22.3 Anion Gap 10 BUN 7 Creatinine 0.87 Estimated GFR 71 L Random Glucose 110 H Calcium 8.9 Total Bilirubin 0.4 AST 14 L ALT 15 Alkaline Phosphatase 96 Total Protein 6.9 Albumin 3.9 TSH 2.280 Urine Opiates Screen Neg Ur Barbiturates Screen Neg Ur Amphetamines Screen Neg U Benzodiazepines Scrn Neg Urine Cocaine Screen Neg U Cannabinoids Screen Neg Serum Alcohol Less than 3 Exam Vital signs: Vital Signs 10/27/17 17:18 10/27/17 19:03 10/27/17 22:12 Temperature 98.9 F 98.3 F 98.2 F Pulse Rate 113 H 102 H 100 H Respiratory Rate 16 20 17 Blood Pressure 120/80 142/65 H 125/74 Pulse Oximetry 97 95 100 10/28/17 02:07 Temperature 98.2 F Pulse Rate 74 Respiratory Rate 18 Blood Pressure 125/74 Pulse Oximetry 98 Intake & Output 10/27/17 10/28/17 10/28/17 18:59 06:59 18:59 Weight 63.049 kg Narrative: No tremors, no EPS, no gait disturbance - Constitutional no acute distress, mild distress - Routine HEENT Exam Head: Present: normocephalic Eye: Present: EOMI, PERRL ENT: Present: mucous membranes moist Mental Status Examination Appearance: Appropriate Consciousness: Alert Orientation: x4 Motor Activity: Normal gait Speech: Unremarkable Language: Adequate Fund of Knowledge: Adequate Attention and Concentration: Adequate Memory: Unremarkable Mood: Irritable Affect: Irritable Thought Process & Associations: Intact Thought Content: Hallucinations Hallucination Type: Auditory Delusion Type: Bizarre Suicidal Ideation: Yes Suicidal Plan: No Suicidal Intention: No Homicidal Ideation: No Homicidal Plan: No Homicidal Intention: No Insight: Poor Judgment: Poor Assessment and Plan - Assessment (1) Schizophrenia Code(s): F20.9 - Schizophrenia, unspecified Status: Acute - Plan Plan: Estimated LOS: [] days On psychiatric evaluation today the patient presents with depressive symptoms consisting in increased sensitivity to frustration and rejection, frequent mood swings, sad mood, generally appears admissions, hopeless, helpless, difficulty to sleep at night and suicidal thoughts with the plan of cutting herself. The patient also report experiencing commanding type auditory hallucinations of voices telling her to kill herself. This is a patient with a extensive psychiatric history of schizoaffective and borderline personality disorder, multiple psychiatric hospitalizations, multiple suicidal attempts, and extensive self cutting behavior without SI, poor coping skill, poor impulse control. The patient has an elevated risk of danger to self, she will be admitted in the for stabilization and safety. I will restart her outpatient medications, clozapine 200 mg in the morning, 525 mg at bedtime, BuSpar 20 mg 3 times daily, Zoloft 75 mg, and will order Clozapine levels. Extensive support, motivation and psychoeducation provided. Patient would be admitted in voluntary basis. Will consult medicine for the management of explosive diarrhea. front worker intervention for psychosocial assessment, collateral information, individual and group therapies, to coordinate safe discharge. Justification for Continued Inpatient Stay: Admission indicated.
[2017-10-28] MEDS: Sertraline 100 MG Tablet PO SCH (12:06)
[2017-10-28] MEDS: Benztropine 2 MG Tablet PO SCH (20:35)
[2017-10-28] MEDS: Senna/Docusate Sodium 8.6/50 MG Tablet PO SCH (20:35)
[2017-10-29 06:54] LABS: Calcium 8.3 mg/dL (8.5-10.1); Carbon Dioxide 27.4 meq/L (21.0-32.0)
[2017-10-29 06:56] LABS: Chol/HDL Ratio 4.08 Ratio; HDL Cholesterol 52.4 mg/dL (40.0-60.0)
[2017-10-29] MEDS: Sertraline 100 MG Tablet PO SCH (09:10)
[2017-10-29] MEDS: Senna/Docusate Sodium 8.6/50 MG Tablet PO SCH ×2 (09:11→20:40)
--- NOTE | 2017-10-29 12:16 | P.PNPSY ---
Subjective Remarks: Patient seen and examined with nurse. Chart reviewed. Case discussed with nursing staff. 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 She says that in response to the stressors she has been experiencing command auditory hallucinations for 4-5 days telling her to hurt her self. She, without prompting, says that she has no thoughts of hurting herself on the unit and would come to staff if this were to change. She endorses some low mood. Remainder of the psychiatric ROS is negative. No side effects from medications. No physical complaints. I spoke with patient's outpatient psychiatrist, Dr. Amaya, today. He notes that patient has a pattern stretching back 2 decades of seeking hospitalization for even minor stressors. He notes that, with only 1 or 2 exceptions, her stays are invariably brief with return to baseline function. Vital Signs Temp Pulse Resp BP Pulse Ox 10/29/17 05:23 98.0 F 75 15 89/54 L 95 Intake and Output 10/28/17 10/29/17 10/29/17 22:59 06:59 14:59 Other: Weight 61.8 kg Laboratory Results - last 24 hr 10/29/17 05:53 Sodium 142 Potassium 4.0 Chloride 107 Carbon Dioxide 27.4 Anion Gap 8 BUN 16 Creatinine 0.89 Estimated GFR 69 L Random Glucose 93 Calcium 8.3 L Triglycerides 122 Cholesterol 214 H LDL Cholesterol, Calc 137 H HDL Cholesterol 52.4 Cholesterol/HDL Ratio 4.08 Labs reviewed. Mental Status Examination Appearance: Appropriate Consciousness: Alert Orientation: x4 Motor Activity: Other (No motor abnormalities noted. Dysconjugate gaze is chronic.) Speech: Unremarkable Language: Adequate Fund of Knowledge: Adequate Attention and Concentration: Adequate Memory: Unremarkable (Grossly intact on clinical exam) Mood: Sad Affect: Appropriate Thought Process & Associations: Intact, Logical, Linear Thought Content: Appropriate Hallucination Type: Auditory, Command Delusion Type: None Suicidal Ideation: Yes Suicidal Plan: No Suicidal Intention: No (Contracts for safety on inpatient unit) Homicidal Ideation: No Homicidal Plan: No Homicidal Intention: No Insight: Poor Judgment: Poor Assessment and Plan - Assessment (1) Schizophrenia Code(s): F20.9 - Schizophrenia, unspecified Status: Acute (2) Adjustment disorder with other symptoms Code(s): F43.29 - Adjustment disorder with other symptoms Status: Acute (3) Schizoaffective disorder Code(s): F25.9 - Schizoaffective disorder, unspecified Status: Acute - Plan Plan: Given likelihood that current presentation is related to adjustment reaction to stressor as noted above and not to decompensation of patient's underlying psychotic illness, I will hold off on adjusting psychotropics at this time. Check CG. Continue to monitor on inpatient unit. Continue other meds and care as ordered. Patient may sign voluntary. Justification for Continued Inpatient Stay: Monitoring for impairment in safety. High risk for decompensation in less restrictive environment. Discharge Planning: Pending psychiatric stabilization. Request Healthcare Surrogate/Guardian Advocate?: No
[2017-10-29 15:58] LABS: Hemoglobin A1c 5.1 % (4.3-6.0)
[2017-10-29] MEDS: Benztropine 2 MG Tablet PO SCH (20:38)
[2017-10-30] MEDS: Sertraline 100 MG Tablet PO SCH (08:35)
[2017-10-30] MEDS: Senna/Docusate Sodium 8.6/50 MG Tablet PO SCH ×2 (11:14→20:47)
--- NOTE | 2017-10-30 11:38 | P.TTN ---
- Patient Problems Problems: 1. Discharge planning 2. Medication compliance 3. Knowledge deficit 4. Lack of coping skills - Progress Toward Goals Provider Present: Dr. Sebastian Shukla Provider Input: RemAin for further stabilization Nurse(s) Present: Nga Boykin Nurse Input: Med compliant Psychiatric Counselors Present: Ellen Meredith LCSW Psychiatric Therapist Input: Patient feels she still needs to be here. Can return to [facility] when stable Group Spec/RT/OT/ZAMBRANO Present: DIANA Prieto Group Spec/RT/OT/ZAMBRANO Input: Patient has isolated to her room since her admission. Pt presents with a depressed mood and tends to isolate from peers. - Documentation Teaching Recipient: Patient
--- NOTE | 2017-10-30 11:46 | P.PNPSY ---
Subjective Remarks: Patient seen and examined with tech. Chart reviewed. Case discussed with nursing staff. Case discussed in treatment team. On my examination today, the patient is more or less unchanged. She continues to describe auditory hallucinations as before. She endorses vague suicidal ideation without plan or intent. She contracts for safety on the inpatient unit. She denies side effects from medications besides drooling. No physical complaints. Vital Signs Temp Pulse Resp BP Pulse Ox 10/30/17 05:37 98.1 F 81 16 102/63 93 L 10/29/17 17:39 97.5 F L 111 H 16 117/78 97 Laboratory Results - last 24 hr 10/29/17 10/29/17 05:53 05:53 Hemoglobin A1c 5.1 Beta HCG, Quant Less than 1 Labs reviewed. N.B. Clozapine level was checked back in July of this year and was 1000 on current dose, well above therapeutic threshold. Review of Systems All other systems reviewed negative except as stated in HPI Mental Status Examination Appearance: Appropriate Consciousness: Alert Orientation: x4 Motor Activity: Other (No new motor abnormalities noted. Dysconjugate gaze is chronic.) Speech: Unremarkable Language: Adequate Fund of Knowledge: Adequate Attention and Concentration: Adequate Memory: Unremarkable (Grossly intact on clinical exam) Mood: Other (Calm) Affect: Blunt Thought Process & Associations: Intact, Logical, Linear Thought Content: Appropriate Hallucination Type: Auditory, Command, Other (Does not appear internally stimulated) Delusion Type: None Suicidal Ideation: Yes (Vague) Suicidal Plan: No Suicidal Intention: No (Again contracts for safety on inpatient unit) Homicidal Ideation: No Homicidal Plan: No Homicidal Intention: No Insight: Poor Judgment: Poor Assessment and Plan - Assessment (1) Adjustment disorder with other symptoms Code(s): F43.29 - Adjustment disorder with other symptoms Status: Acute (2) Schizoaffective disorder Code(s): F25.9 - Schizoaffective disorder, unspecified Status: Acute - Plan Plan: Continue to suspect adjustment disorder driving current presentation, not decompensated psychosis. As such, I feel the risk/benefit profile does not favor medication titration at this time, and any adjustment would be likely working through placebo action anyway. I will continue current medications as ordered. Continue to monitor on inpatient unit. Continue other care as ordered. Justification for Continued Inpatient Stay: Risk for decompensation in less restrictive environment. Discharge Planning: Pending psychiatric stabilization Request Healthcare Surrogate/Guardian Advocate?: No
[2017-10-30] MEDS: Benztropine 2 MG Tablet PO SCH (20:47)
[2017-10-31 05:57] VITALS: BP 111/64; PULSE 82; RESP 18; TEMP 98.7; O2SAT 96
[2017-10-31] MEDS: Senna/Docusate Sodium 8.6/50 MG Tablet PO SCH (09:28)
[2017-10-31] MEDS: Sertraline 100 MG Tablet PO SCH (09:28)
--- NOTE | 2017-10-31 10:32 | P.PNPSY ---
Mental Status Examination Appearance: Appropriate Consciousness: Alert Orientation: x4 Motor Activity: Other (No new motor abnormalities noted. Dysconjugate gaze is chronic.) Speech: Unremarkable Language: Adequate Fund of Knowledge: Adequate Attention and Concentration: Adequate Memory: Unremarkable (Grossly intact on clinical exam) Mood: Other (Calm) Affect: Blunt Thought Process & Associations: Intact, Logical, Linear Thought Content: Appropriate Hallucination Type: Auditory, Command, Other (Does not appear internally stimulated) Delusion Type: None Suicidal Ideation: Yes (Vague) Suicidal Plan: No Suicidal Intention: No (Again contracts for safety on inpatient unit) Homicidal Ideation: No Homicidal Plan: No Homicidal Intention: No Insight: Poor Judgment: Poor Assessment and Plan - Assessment (1) Adjustment disorder with other symptoms Code(s): F43.29 - Adjustment disorder with other symptoms Status: Acute (2) Schizoaffective disorder Code(s): F25.9 - Schizoaffective disorder, unspecified Status: Acute - Plan Request Healthcare Surrogate/Guardian Advocate?: No
--- NOTE | 2017-10-31 11:09 | P.DSPSY ---
Psychiatry Discharge Summary Inpatient Psychiatric care?: Yes Advance Directives: No Mental Health Advance Directive: No Health Care Proxy: No - Admission Admission Date: October 28, 2017 09:59 - Admission Diagnosis (1) Schizophrenia Code(s): F20.9 - Schizophrenia, unspecified Brief History: The patient is a 42-year-old woman, domiciled in [facility], single , unemployed, supported by [facility], with an extensive psychiatric history of schizoaffective disorder, borderline personality disorder, multiple psychiatric hospitalizations, last hospitalization here in [place] in July 2017 under the care of Dr. Lowe, documentation reviewed, established outpatient care with [facility] and FACT team, she is on clozapine 200 mg a.m. 525 mg at bedtime, BuSpar 20 twice daily, Zoloft 200 mg, she has multiple suicidal attempts, extensive self- cutting behavior without SI, history of poor impulse control, maladaptive coping skills, medical history of IBS, who presents to the emergency department for evaluation as a Piper act. According to Piper act, patient has had hallucinations telling her to kill herself. She states they are becoming worse. She states this may have happened because she started a job that stressed her out. EMR was reviewed. Case was discussed with nurse in charge. Collateral information from [facility], [address] [place] [id number], was obtained. On psychiatric evaluation the patient is calm, cooperative, without goal-directed and logical thought process. She reports that she decided to call the ambulance and come to the hospital because she has been hearing voices telling her to kill herself. The patient reports that she has been experiencing depressed mood in the last week, she has been quite barros, with increased sensitivity to frustration rejection, lack of sleep , poor motivation, lack of appetite, hopelessness, helplessness, and persistent suicidal thoughts with a plan of cutting herself. He says that yesterday she was so upset and irritable, she was about to get a knife and cut herself "but I prefer to come to the ER and avoid problems". She reports that she also has been decompensated of her IBS, with episodic diarrhea and gases. The patient reports having auditory hallucinations of voices telling her to cut herself. She is fully oriented 3. Kind of concrete and childish. She denies the use of illegal drugs or alcohol. PPHx: with an extensive psychiatric history of schizoaffective disorder, borderline personality disorder, multiple psychiatric hospitalizations, last hospitalization here in [place] in July 2017 under the care of Dr. Lowe, documentation reviewed, established outpatient care with [facility] and FACT team, she is on clozapine 200 mg a.m. 525 mg at bedtime, BuSpar 20 twice daily, Zoloft 200 mg, she has multiple suicidal attempts, extensive self-cutting behavior without SI, history of poor impulse control, maladaptive coping skills PMHx: medical history of IBS Substance Hx: Denies the use of illegal drugs or alcohol Family Hx: Mother suffers of depression Social Hx: 42-year-old woman, domiciled in [facility], single, unemployed, supported by [facility] Tobacco Use In Past 30 Days: Yes How Often Do You Have a Drink Containing Alcohol: Never Hospital Course: Patient was admitted to a locked, inpatient psychiatric unit. Appropriate precautions were in place throughout patient's hospital stay. Patient was seen and examined on the unit by psychiatry and also visited by counselor. Patient had improvement in presenting psychiatric symptomatology during the course of her hospital stay. There was no evidence of any suicidality or homicidality on the inpatient unit. There was no evidence of self-care deficit. Collateral information was obtained from the patient's outpatient psychiatrist. On the day of discharge: Patient seen and examined with counselor. Chart reviewed. Case discussed with nursing staff. No behavioral issues noted overnight. Case discussed with counselor. On my exam, patient is requesting discharge from the inpatient psychiatric unit today. She reports that her auditory hallucinations resolved last evening "after I told the voices to shut the fuck up!" Patient is exuberant and pleased to have gained mastery over her voices, apparently using a therapeutic technique taught to her by the counselor. She denies any audiovisual hallucinations presently. She says that she slept well overnight. Mood is stable and I can elicit no depressive or hypomanic/manic symptoms. She denies any suicidal or homicidal ideation, intent or plan. No delusional material. Remainder of the psychiatric ROS is negative. No side effects from medications. No physical complaints. Weighing the relevant factors and based on the available evidence, I resource technician that the patient does not meet criteria for involuntary psychiatric hospitalization at this time. There is no evidence of imminent risk of harm to self or others, nor is there evidence of self-care deficit to substantiate involuntary psychiatric hospitalization. She is requesting discharge from the inpatient psychiatric unit today, and I have no basis to retain her over her objection. Suicide and violence risk assessment both suggest lower imminent risk, although the patient is somewhat chronically unpredictable due to personality factors that would not be improved by a longer inpatient psychiatric hospital stay. Patient will be discharged today with psychiatric follow-up as arranged by counselor. The patient is also to follow up with primary care. I have reminded the patient to return to the psychiatric emergency room for any concerning symptoms as part of a general safety plan. With the benefit of further observation on the inpatient unit, I do suspect that the patient's presenting symptoms were related to an adjustment disorder, now resolved and not to a genuine decompensation of her underlying psychotic illness. - Discharge Discharge Date: 10/31/17 - Discharge Diagnosis (1) Adjustment disorder with other symptoms Diagnosis: Principal Code(s): F43.29 - Adjustment disorder with other symptoms Status: Resolved (2) Schizoaffective disorder Diagnosis: Secondary Code(s): F25.9 - Schizoaffective disorder, unspecified Status: Chronic Discharge Disposition: Home - Discharge Instructions Discharge Diet: Regular Diet Activities You Can Perform: Weight Bearing As Tolerat - Discharge Time <= 30 minutes Mental Status Examination Appearance: Appropriate Consciousness: Alert Orientation: x4 Motor Activity: Other (No abnormal motor movements noted. Dysconjugate gaze is chronic.) Speech: Unremarkable Language: Adequate Fund of Knowledge: Adequate Attention and Concentration: Adequate Memory: Unremarkable (Grossly intact on clinical exam) Mood: Appropriate Affect: Appropriate, Euthymic Thought Process & Associations: Intact, Logical, Linear Thought Content: Appropriate Hallucination Type: None Delusion Type: None Suicidal Ideation: No Suicidal Plan: No Suicidal Intention: No Homicidal Ideation: No Homicidal Plan: No Homicidal Intention: No Mental Status Exam Remarks: Insight and judgment are chronically poor Discharge/Advance Care Plan - Results Vital Signs: Last Vital Signs Temp 98.7 F 10/31/17 05:57 Pulse 82 10/31/17 05:57 Resp 18 10/31/17 05:57 BP 111/64 10/31/17 05:57 Pulse Ox 96 10/31/17 05:57 Lab Results: Laboratory Results Hemoglobin A1c 5.1 % (4.3-6.0) 10/29/17 05:53 Triglycerides 122 mg/dL (42-150) 10/29/17 05:53 Cholesterol 214 mg/dL (120-200) H 10/29/17 05:53 LDL Cholesterol, Calc 137 mg/dL (0-99) H 10/29/17 05:53 HDL Cholesterol 52.4 mg/dL (40.0-60.0) 10/29/17 05:53 TSH 2.280 uIU/mL (0.358-3.740) 10/27/17 17:25 Summary of Procedures: None done Pending Results: None - Medications Number of antipsychotic medications at discharge: 1 - Discharge Care Plan Goals to Promote Your Health: * To prevent worsening of your condition and complications * To maintain your health at the optimal level Directions to Meet Your Goals: Take your medications as prescribed Follow your dietary instruction Follow activity as directed Keep your appointments as scheduled Take your immunizations and boosters as scheduled If your symptoms worsen call your PCP, if no PCP go to Urgent Care Center or Emergency Room For 28/08 questions related to your inpatient stay or results of tests pending at discharge, please contact Dr. José Shukla MD at Smoking is Dangerous to Your Health. Avoid second hand smoking
== END 2017-10-31 13:10 | disposition home or self-care (01) ==
LOC: NEPJ 17:05 → NEDA 10-28 09:59 → H260 10-28 11:08
PROVIDERS: ADMIT Psychiatry & Neurology Psychiatry; ATTEND Psychiatry & Neurology Psychiatry

== ENCOUNTER 2017-11-09 10:54 | Inpatient (IN) ==
[2017-11-09] MEDS ORDERED: MethylPREDNISolone Sod Succinate Inj 125 MG/2 ML Vial IM ONE (11:41)
--- NOTE | 2017-11-09 11:46 | ED ---
HPI General Chief complaint: Respiratory Symptoms Stated complaint: respiratory Time Seen by Provider: 11/09/17 11:35 History of Present Illness HPI narrative: 42-year-old female presents to the emergency department for evaluation of cough and shortness of breath for 1 week. Patient states that she has had productive cough with green sputum for 1 week. States that she has started feeling short of breath and lightheaded over the past few days as well. She states that she feels as though she may have bronchitis, has had this in the past. She does smoke cigarettes and has been smoking since she was 11 years old. She denies any fever, chills, nausea, vomiting, chest pain, sore throat, ear pain, nasal congestion, runny nose. Denies any recent travel. States that she has had sick contacts in the [facility] that she lives in. No other complaints. Related Data Home Medications Medication Instructions Recorded Confirmed benztropine 2 mg PO HS 10/27/17 11/09/17 buspirone 10 mg PO BID 10/27/17 11/09/17 clozapine 200 mg PO QAM 10/27/17 11/09/17 clozapine 550 mg PO HS 10/27/17 11/09/17 loperamide 2 mg PO BID 10/27/17 11/09/17 paliperidone palmitate [Invega 234 mg IM QMONTH 10/27/17 11/09/17 Sustenna] sertraline 200 mg PO DAILY 10/27/17 11/09/17 Allergies Allergy/AdvReac Type Severity Reaction Status Date / Time No Known Allergies Allergy Uncoded 10/27/15 18:14 Review of Systems ROS: all other systems reviewed are negative [facility] Medical History Medical History Borderline personality disorder (Acute) IBS (irritable bowel syndrome) (Acute) Schizophrenia (Acute) Family History Family History Other Anxiety disorder Depression Family history of breast cancer Family history of cancer Social History Social History Substance History: No History of Abuse Second Hand Smoke Exposure: Yes Smoking Status: Current every day smoker Tobacco Type: Cigarettes How Often Do You Have a Drink Containing Alcohol: Never Recent Out of Country Travel within the Last 8 Weeks: No Exam Narrative Exam Narrative: GENERAL: Well-nourished and well-developed pleasant patient in no acute distress who is nontoxic appearing. SKIN: Warm and dry. HEAD: Normocephalic and atraumatic. EYES: No injection, drainage, or hyphema noted. PERRLA. EOMI. ENT: No nasal drainage noted. Oropharynx is clear and the TMs are normal with good landmarks. NECK: Supple and the trachea is midline. CARDIOVASCULAR: Regular rate and rhythm. RESPIRATORY: Wheezing throughout lung reagan. No accessory muscle use or crackles. GASTROINTESTINAL: Abdomen is soft, non-tender, and nondistended. MUSCULOSKELETAL: No obvious deformities, swelling, cyanosis, or ecchymosis is present throughout the upper and lower extremities. Patient has full range of motion without any signs of neurovascular compromise. Distal pulses are 2+ throughout. NEUROLOGICAL: Awake, alert, and oriented. Normal speech and gait. Cranial nerves are grossly intact. Course Initial Documented Vital Signs Temperature 97.7 F 11/09/17 11:00 Pulse Rate 113 H 11/09/17 11:00 Respiratory Rate 18 11/09/17 11:00 Blood Pressure 157/90 H 11/09/17 11:00 Pulse Oximetry 90 L 11/09/17 11:00 Last Documented Vital Signs Temperature 97.7 F 11/09/17 11:00 Pulse Rate 101 H 11/09/17 16:01 Respiratory Rate 16 11/09/17 16:01 Blood Pressure 131/87 11/09/17 16:01 Pulse Oximetry 93 L 11/09/17 16:01 Medical Decision Making MDM Narrative Medical decision making narrative: 42-year-old female presents to the emergency department for evaluation of productive cough and shortness of breath. Patient is afebrile. Blood pressure slightly elevated and she is tachycardic with a heart rate of 113 bpm. Oxygen saturation is a little low at 90% on room air. She is in no acute distress. She does have wheezing throughout lung reagan. Duo nebs x3 and Solu-Medrol 125 mg IM have been administered. Patient reassessed after receiving duo nebs and Solu-Medrol. She reports her symptoms have improved however she still has wheezing throughout lung reagan. Her oxygen saturation is noted to be 88% on room air after nebulizers. Patient will need to be admitted for COPD exacerbation. CBC and CMP are unremarkable. I spoke with Dr. Menard [facility] who agrees to accept the patient to his service. Medical Screen Exam Complete: Yes Emergency Medical Condition: Yes Differential Diagnosis Differential Diagnosis: Bronchitis versus pneumonia versus COPD exacerbation Lab Data Result diagrams: 11/09/17 14:10 11/09/17 14:10 Lab Results 11/09/17 11/09/17 Range/Units 14:10 14:10 WBC 6.8 (4.0-11.0) th/mm3 RBC 4.32 (4.00-5.30) mil/mm3 Hgb 13.8 (11.6-15.3) gm/dL Hct 39.0 (35.0-46.0) % MCV 90.4 (80.0-100.0) fL MCH 31.9 (27.0-34.0) pg MCHC 35.3 (32.0-36.0) % RDW 14.1 (11.6-17.2) % Plt Count 201 (150-450) th/mm3 MPV 8.4 (7.0-11.0) fL Neut % (Auto) 91.0 H (16.0-70.0) % Lymph % (Auto) 7.2 L (9.0-44.0) % [place] % (Auto) 1.7 (0.0-8.0) % Eos % (Auto) 0.0 (0.0-4.0) % Baso % (Auto) 0.1 (0.0-2.0) % Neut # (Auto) 6.2 (1.8-7.7) th/mm3 Lymph # (Auto) 0.5 L (1.0-4.8) th/mm3 [place] # (Auto) 0.1 (0.0-0.9) th/mm3 Eos # (Auto) 0.0 (0.0-0.4) th/mm3 Baso # (Auto) 0.0 (0.0-0.2) th/mm3 WBC Differential . Differential Comment Auto diff final Sodium 146 H (136-145) meq/L Potassium 4.3 (3.5-5.1) meq/L Chloride 112 H (98-107) meq/L Carbon Dioxide 23.3 (21.0-32.0) meq/L Anion Gap 11 (5-15) meq/L BUN 6 L (7-18) mg/dL Creatinine 0.78 (0.50-1.00) mg/dL Estimated GFR 81 L (>89) mL/min Random Glucose 97 (74-106) mg/dL Calcium 8.9 (8.5-10.1) mg/dL Total Bilirubin 0.5 (0.2-1.0) mg/dL AST 20 (15-37) U/L ALT 14 (10-53) U/L Alkaline Phosphatase 108 (45-117) U/L Total Protein 6.9 (6.4-8.2) g/dL Albumin 3.4 (3.4-5.0) g/dL Imaging Data Radiologist's impression: Chest X-Ray 11/09/17 11:41 CONCLUSION: 1. No acute cardiopulmonary disease. 2. Mild scoliosis of the thoracolumbar spine. Discharge Plan Discharge Disposition Patient Disposition: 30 Still Patient Discharge Details Diagnosis: Acute exacerbation of chronic obstructive pulmonary disease (COPD), Hypoxia Physicians Team ED Provider: Lon Bourne ED Midlevel Provider: Kady Hutchins Primary Care Provider: UNKNOWN, Rxs /Orders / Referrals /Forms Prescriptions: No Action loperamide 2 mg Capsule 2 mg PO BID RF: 0 clozapine 100 mg Tablet 550 mg PO HS RF: 0 buspirone 10 mg Tablet 10 mg PO BID RF: 0 clozapine 100 mg Tablet 200 mg PO QAM RF: 0 benztropine 2 mg Tablet 2 mg PO HS RF: 0 paliperidone palmitate [Invega Sustenna] 234 mg/1.5 mL Syringe 234 mg IM QMONTH RF: 0 sertraline 100 mg Tablet 200 mg PO DAILY RF: 0 Status ED Status: Pending Admission
--- NOTE | 2017-11-09 12:56 | XR ---
EXAM DATE: 11/09/2017 11:41 AM EDT AGE/SEX: 42 years / Female INDICATIONS: . Short of breath, wheezing and light headed CLINICAL DATA: This is the patient's initial encounter. Patient reports that signs and symptoms have been present for 1 week and indicates a pain score of 0/10. MEDICAL/SURGICAL HISTORY: None. None. COMPARISON: No prior exams available for comparison. FINDINGS: No focal pulmonary infiltrate is noted. No pulmonary vascular congestion is noted. The heart is benji l. Mild scoliosis of the thoracolumbar spine is noted. CONCLUSION: 1. No acute cardiopulmonary disease. 2. Mild scoliosis of the thoracolumbar spine. Electronically signed by: Lon Murray MD 11/09/2017 12:54 PM EDT
[2017-11-09] MEDS ORDERED: Azithromycin Inj 500 MG in Sodium Chlor 0.9% Inj 250 ML IV.SIG ONE (13:33)
[2017-11-09 15:16] LABS: Baso % (Auto) 0.1 % (0.0-2.0); Hemoglobin 13.8 gm/dL (11.6-15.3); Lymph # (Auto) 0.5 th/mm3 (1.0-4.8); Lymph % (Auto) 7.2 % (9.0-44.0); Mean Corpuscular HGB Conc 35.3 % (32.0-36.0); Mean Corpuscular Hemoglobin 31.9 pg (27.0-34.0); Mean Corpuscular Volume 90.4 fL (80.0-100.0); Mean Platelet Volume 8.4 fL (7.0-11.0); Mono # (Auto) 0.1 th/mm3 (0.0-0.9); Mono % (Auto) 1.7 % (0.0-8.0); Neut # (Auto) 6.2 th/mm3 (1.8-7.7); Platelet Count 201 th/mm3 (150-450); Red Blood Count 4.32 mil/mm3 (4.00-5.30); Red Cell Distribution Width 14.1 % (11.6-17.2); White Blood Count 6.8 th/mm3 (4.0-11.0)
[2017-11-09 15:34] LABS: Alkaline Phosphatase 108 U/L (45-117); Total Protein 6.9 g/dL (6.4-8.2)
[2017-11-09 15:57] LABS: Alanine Aminotransferase 14 U/L (10-53); Albumin 3.4 g/dL (3.4-5.0); Anion Gap 11 meq/L (5-15); Aspartate Aminotransferase 20 U/L (15-37); Blood Urea Nitrogen 6 mg/dL (7-18); Calcium 8.9 mg/dL (8.5-10.1); Carbon Dioxide 23.3 meq/L (21.0-32.0); Chloride 112 meq/L (98-107); Glomerular Filtration Rate 81 mL/min (>89); Glucose,Random 97 mg/dL (74-106); Sodium 146 meq/L (136-145)
[2017-11-09 15:58] LABS: Potassium 4.3 meq/L (3.5-5.1)
[2017-11-09] MEDS ORDERED: Acetaminophen 325 MG Tablet PO PRN (16:17)
--- NOTE | 2017-11-09 17:26 | P.HPIM ---
History of Present Illness Primary Care Physician: UNKNOWN Chief Complaint: Shortness of breath History of Present Illness: The patient is a 42-year-old female with a past medical history of schizoaffective disorder and borderline personality disorder who is presenting to the hospital with shortness of breath. The patient says that she was recently in the psychiatric unit and was discharged last week. She said that a few days prior to discharge she developed symptoms including shortness of breath , mucus production, lightheadedness and wheezing. She says her symptoms have been getting worse. She denies any fevers. She says she has a lot of sick contacts that she lives in an [place]. She says that in the emergency department she received steroids and breathing treatments and is feeling a lot better at this time. She currently requests a nicotine patch. She endorses a heavy smoking history. She heard that she might have COPD. Review of Systems All other systems reviewed negative except as stated in HPI [facility] - History History Provided By: Patient - Medical History Medical History: Medical History (Last Reviewed 11/09/17 @ 17:19 by Rodrick Menard DO) Borderline personality disorder IBS (irritable bowel syndrome) Schizophrenia - Surgical History Surgical History: Surgical History (Last Updated 11/09/17 @ 17:19 by Rodrick Menard DO) H/O eye surgery - Family History Family History: Family History (Last Reviewed 11/09/17 @ 17:19 by Rodrick Menard DO) Other Anxiety disorder Depression Family history of breast cancer Family history of cancer - Tobacco History Second Hand Smoke Exposure: Yes Tobacco Use In Past 30 Days: Yes Smoking Status: Current every day smoker Tobacco Type: Cigarettes - Alcohol History How Often Do You Have a Drink Containing Alcohol: Never - Substance Use History Substance History: No History of Abuse - Travel History Recent Travel Out of the Country Within the Last 8 Weeks: No - Immunization History Tetanus Immunization: <5 Years Hx Influenza Vaccine This Season: No Medications and Allergies Active Medications: Active Medications Acetaminophen (Tylenol) 650 mg PO Q4H PRN PRN Reason: Temp > 100.4 Benztropine Mesylate (Cogentin) 2 mg PO HS HAWA Buspirone HCl (Buspar) 10 mg PO BID HAWA Clozapine (Clozaril) 200 mg PO DAILY HAWA Clozapine (Clozaril) 550 mg PO HS HAWA Miscellaneous (Pill Splitter) 1 each OTHER UNSCH PRN PRN Reason: PILL SPIT Senna/Docusate Sodium (Allie-Colace) 1 tab PO BID HAWA Sertraline HCl (Zoloft) 200 mg PO DAILY HAWA Allergies Allergy/AdvReac Type Severity Reaction Status Date / Time No Known Allergies Allergy Uncoded 10/27/15 18:14 Home Medications Medication Instructions Recorded Confirmed Type benztropine 2 mg PO HS 10/27/17 11/09/17 History buspirone 10 mg PO BID 10/27/17 11/09/17 History clozapine 200 mg PO QAM 10/27/17 11/09/17 History clozapine 550 mg PO HS 10/27/17 11/09/17 History loperamide 2 mg PO BID 10/27/17 11/09/17 History paliperidone palmitate [Invega 234 mg IM QMONTH 10/27/17 11/09/17 History Sustenna] sertraline 200 mg PO DAILY 10/27/17 11/09/17 History Exam Vital signs: Vital Signs 11/09/17 11:00 11/09/17 11:48 11/09/17 11:51 Temperature 97.7 F Pulse Rate 113 H Respiratory Rate 18 Blood Pressure 157/90 H Pulse Oximetry 90 L 97 97 11/09/17 12:06 11/09/17 13:31 11/09/17 16:01 Temperature Pulse Rate 102 H 101 H Respiratory Rate 17 16 Blood Pressure 131/87 Pulse Oximetry 92 L 88 L 93 L Intake & Output 11/08/17 11/09/17 11/09/17 18:59 06:59 18:59 Intake Total 350 / 350 Balance 350 / 350 Weight 63.049 kg Intake: IV 350 / 350 Azithromycin Inj 500 MG In NS 250 / 250 Inj 250 ML @ 250 mls/hr IV.SIG ONCE ONE Rx#:[id number] Rocephin Inj 1,000 MG In NS Inj 100 / 100 100 ML @ 200 mls/hr IV.SIG ONCE ONE Rx#:[id number] Narrative: GENERAL: No distress. SKIN: Warm and dry. HEAD: Normocephalic and atraumatic. EYES: No injection, drainage, or hyphema noted. PERRLA. EOMI. ENT: No nasal drainage noted. Oropharynx is clear and the TMs are normal with good landmarks. NECK: Supple and the trachea is midline. CARDIOVASCULAR: Tachycardic. RESPIRATORY: Clear to auscultation. No accessory muscle use or crackles. GASTROINTESTINAL: Abdomen is soft, non-tender, and nondistended. MUSCULOSKELETAL: No obvious deformities, swelling, cyanosis, or ecchymosis is present throughout the upper and lower extremities. Patient has full range of motion without any signs of neurovascular compromise. Distal pulses are 2+ throughout. NEUROLOGICAL: Awake, alert, and oriented. Normal speech and gait. Cranial nerves are grossly intact. Results - Labs CBC & Chem 7: 11/09/17 14:10 11/09/17 14:10 Labs: Short CBC 11/09/17 Range/Units 14:10 WBC 6.8 (4.0-11.0) th/mm3 Hgb 13.8 (11.6-15.3) gm/dL Hct 39.0 (35.0-46.0) % Plt Count 201 (150-450) th/mm3 BMP 11/09/17 14:10 Sodium 146 H Potassium 4.3 Chloride 112 H Carbon Dioxide 23.3 BUN 6 L Creatinine 0.78 Calcium 8.9 Liver Function 11/09/17 Range/Units 14:10 Total Bilirubin 0.5 (0.2-1.0) mg/dL AST 20 (15-37) U/L ALT 14 (10-53) U/L Alkaline Phosphatase 108 (45-117) U/L Albumin 3.4 (3.4-5.0) g/dL - Imaging Impressions Chest X-Ray 11/09/17 11:41 CONCLUSION: 1. No acute cardiopulmonary disease. 2. Mild scoliosis of the thoracolumbar spine. Caprini VTE Risk Assessment Caprini VTE Risk Assessment: Moderate/High Risk (score >= 2) Caprini Risk Assessment Model: Point Value = 1 Point Value = 2 Point Value = 3 Point Value = 5 Age 41-60 Minor surgery BMI > 25 kg/m2 Swollen legs Varicose veins or History of unexplained or recurrent spontaneous Oral contraceptives or hormone replacement Sepsis (< 1 month) Serious lung disease, including pneumonia (< 1 month) Abnormal pulmonary function Acute myocardial infarction Congestive heart failure (< 1 month) History of inflammatory bowel disease Medical patient at bed rest Age 61-74 Arthroscopic surgery Major open surgery (> 45 min) Laparoscopic surgery (> 45 min) Malignancy Confined to bed (> 72 hours) Immobilizing plaster cast Central venous access Age >= 75 History of VTE Family history of VTE Factor V Leiden Prothrombin [id number] Lupus anticoagulant Anticardiolipin antibodies Elevated serum homocysteine Heparin-induced thrombocytopenia Other congenital or acquired thrombophilia Stroke (< 1 month) Elective arthroplasty Hip, pelvis, or leg fracture Acute spinal cord injury (< 1 month) Prophylaxis Regimen: Total Risk Factor Score Risk Level Prophylaxis Regimen 0-1 Low Early ambulation 2 Moderate Order ONE of the following: *Sequential Compression Device (SCD) *Heparin 5000 units SQ BID 3-4 Higher Order ONE of the following medications: *Heparin 5000 units SQ TID *Enoxaparin/Lovenox 40 mg SQ daily (WT < 150 kg, CrCl > 30 mL/min) *Enoxaparin/Lovenox 30 mg SQ daily (WT < 150 kg, CrCl > 10-29 mL/min) *Enoxaparin/Lovenox 30 mg SQ BID (WT < 150 kg, CrCl > 30 mL/min) AND/OR *Sequential Compression Device (SCD) 5 or more Highest Order ONE of the following medications: *Heparin 5000 units SQ TID (Preferred with Epidurals) *Enoxaparin/Lovenox 40 mg SQ daily (WT < 150 kg, CrCl > 30 mL/min) *Enoxaparin/Lovenox 30 mg SQ daily (WT < 150 kg, CrCl > 10-29 mL/min) *Enoxaparin/Lovenox 30 mg SQ BID (WT < 150 kg, CrCl > 30 mL/min) AND *Sequential Compression Device (SCD) Assessment and Plan - Plan Hypoxemia The patient presented with diffuse wheezing which has now improved. Chest x- ray was unremarkable. The patient endorses cough and mucus production. She has a heavy smoking history, ? COPD. -Duo nebs and oxygen as needed. -Sputum culture. -Incentive spirometry. -The patient received ceftriaxone and azithromycin in the emergency department. Will continue IV doxycycline so as not to interact with psychiatric medications. -Encourage ambulation. -smoking cessation instruction. -Nicotine patch. Tachycardia Likely s/t respiratory distress. Low risk for PE per Wells score. -check an EKG and TSH. -treat hypoxemia as above. -IVFs. Schizoaffective disorder/borderline personality disorder The patient was recently hospitalized in our psychiatric unit. She currently denies any psychiatric symptoms at this time. -Continue home medications. PPx: SCDs
[2017-11-09] MEDS: Sodium Chloride 0.45 % Inj 1,000 ML IV.CONT SCH (18:40)
[2017-11-09] MEDS: Benztropine 2 MG Tablet PO SCH (21:31)
[2017-11-09] MEDS: Senna/Docusate Sodium 8.6/50 MG Tablet PO SCH (22:25)
[2017-11-09] MEDS: predniSONE 20 MG Tablet PO SCH (22:26)
[2017-11-10] MEDS: Sodium Chloride 0.45 % Inj 1,000 ML IV.CONT SCH (06:36)
[2017-11-10 08:00] LABS: Baso % (Auto) 0.1 % (0.0-2.0); Hemoglobin 12.9 gm/dL (11.6-15.3); Lymph # (Auto) 0.5 th/mm3 (1.0-4.8); Lymph % (Auto) 5.7 % (9.0-44.0); Mean Corpuscular HGB Conc 34.1 % (32.0-36.0); Mean Platelet Volume 8.4 fL (7.0-11.0); Mono # (Auto) 0.3 th/mm3 (0.0-0.9); Mono % (Auto) 2.9 % (0.0-8.0); Neut # (Auto) 8.6 th/mm3 (1.8-7.7); Neut % (Auto) 91.3 % (16.0-70.0); Platelet Count 207 th/mm3 (150-450); Red Blood Count 4.18 mil/mm3 (4.00-5.30); Red Cell Distribution Width 14.1 % (11.6-17.2); White Blood Count 9.4 th/mm3 (4.0-11.0)
[2017-11-10 08:43] LABS: Albumin 3.2 g/dL (3.4-5.0); Anion Gap 11 meq/L (5-15); Aspartate Aminotransferase 11 U/L (15-37); Blood Urea Nitrogen 7 mg/dL (7-18); Calcium 8.9 mg/dL (8.5-10.1); Carbon Dioxide 20.2 meq/L (21.0-32.0); Chloride 113 meq/L (98-107); Glomerular Filtration Rate Greater Than 89 mL/min (>89); Glucose,Random 112 mg/dL (74-106); Potassium 3.9 meq/L (3.5-5.1); Sodium 144 meq/L (136-145)
[2017-11-10 08:46] LABS: Alanine Aminotransferase 12 U/L (10-53); Alkaline Phosphatase 96 U/L (45-117); Total Protein 6.5 g/dL (6.4-8.2)
[2017-11-10] MEDS: predniSONE 20 MG Tablet PO SCH ×2 (09:40→20:32)
[2017-11-10] MEDS: Sertraline 100 MG Tablet PO SCH (09:40)
[2017-11-10] MEDS: Senna/Docusate Sodium 8.6/50 MG Tablet PO SCH ×2 (09:41→20:32)
--- NOTE | 2017-11-10 11:35 | P.PNIM ---
Subjective Interval history: f/u; COPD exacerbation in no acute distress. but still with some wheezing and productive cough of yellowish sputum. no fever. she says that she's feeling better and wheezing seems to be improving. Physical Exam Vital signs: Vital Signs 11/09/17 11:48 11/09/17 11:51 11/09/17 12:06 Temperature Pulse Rate 102 H Respiratory Rate 17 Blood Pressure Pulse Oximetry 97 97 92 L 11/09/17 13:31 11/09/17 16:01 11/09/17 17:37 Temperature 98.1 F Pulse Rate 101 H 100 H Respiratory Rate 16 18 Blood Pressure 131/87 128/91 H Pulse Oximetry 88 L 93 L 94 L 11/09/17 19:00 11/09/17 19:51 11/09/17 20:00 Temperature 98.0 F Pulse Rate 106 H Respiratory Rate 16 Blood Pressure 114/73 Pulse Oximetry 93 L 93 L 93 L 11/09/17 20:32 11/10/17 00:00 11/10/17 00:47 Temperature 98.1 F Pulse Rate 106 H 103 H Respiratory Rate 16 16 Blood Pressure 114/73 Pulse Oximetry 92 L 98 11/10/17 04:00 11/10/17 07:51 11/10/17 08:00 Temperature 97.9 F 98.4 F Pulse Rate 97 H 100 H Respiratory Rate 16 20 Blood Pressure 118/85 128/79 Pulse Oximetry 92 L 93 L 90 L Intake & Output 11/09/17 11/10/17 11/10/17 18:59 06:59 18:59 Intake Total 350 / 350 2240 / 2240 100 / 100 Balance 350 / 350 2240 / 2240 100 / 100 Weight 63.049 kg 63.049 kg Intake: IV 350 / 350 1100 / 1100 100 / 100 1/2 Normal Saline Inj 1,000 ML 1000 / 1000 @ 100 mls/hr IV.CONT .Q10H [place]WA Rx#:[id number] Azithromycin Inj 500 MG In NS 250 / 250 Inj 250 ML @ 250 mls/hr IV.SIG ONCE ONE Rx#:[id number] Doxy 100 Inj 100 MG In NS Inj 100 / 100 100 / 100 100 ML @ 100 mls/hr IV.SIG Q12H [place] Rx#:[id number] Rocephin Inj 1,000 MG In NS Inj 100 / 100 100 ML @ 200 mls/hr IV.SIG ONCE ONE Rx#:[id number] Oral 1140 / 1140 Other: # Voids 1 3 Weight On Admission 63.049 kg - Constitutional mild distress - Routine Respiratory Exam Present: prolonged expiratory phase, wheezes - Routine Cardiovascular Exam Present: RRR, tachycardia - Routine Abdominal Exam Present: soft - Routine Extremities Exam Comments: no pedal edema. - Routine Neurological Exam Present: alert, oriented X3 Results - Labs CBC & Chem 7: 11/10/17 07:10 11/10/17 07:10 Laboratory Results - last 24 hr 11/09/17 11/09/17 11/09/17 14:10 14:10 14:10 WBC 6.8 RBC 4.32 Hgb 13.8 Hct 39.0 MCV 90.4 MCH 31.9 MCHC 35.3 RDW 14.1 Plt Count 201 MPV 8.4 Neut % (Auto) 91.0 H Lymph % (Auto) 7.2 L [place] % (Auto) 1.7 Eos % (Auto) 0.0 Baso % (Auto) 0.1 Neut # (Auto) 6.2 Lymph # (Auto) 0.5 L [place] # (Auto) 0.1 Eos # (Auto) 0.0 Baso # (Auto) 0.0 WBC Differential . Differential Comment Auto diff final Sodium 146 H Potassium 4.3 Chloride 112 H Carbon Dioxide 23.3 Anion Gap 11 BUN 6 L Creatinine 0.78 Estimated GFR 81 L Random Glucose 97 Calcium 8.9 Total Bilirubin 0.5 AST 20 ALT 14 Alkaline Phosphatase 108 Total Protein 6.9 Albumin 3.4 TSH 0.668 11/10/17 11/10/17 07:10 07:10 WBC 9.4 RBC 4.18 Hgb 12.9 Hct 38.0 MCV 91.0 MCH 31.0 MCHC 34.1 RDW 14.1 Plt Count 207 MPV 8.4 Neut % (Auto) 91.3 H Lymph % (Auto) 5.7 L [place] % (Auto) 2.9 Eos % (Auto) 0.0 Baso % (Auto) 0.1 Neut # (Auto) 8.6 H Lymph # (Auto) 0.5 L [place] # (Auto) 0.3 Eos # (Auto) 0.0 Baso # (Auto) 0.0 WBC Differential . Differential Comment Auto diff final Sodium 144 Potassium 3.9 Chloride 113 H Carbon Dioxide 20.2 L Anion Gap 11 BUN 7 Creatinine 0.62 Estimated GFR Greater than 89 Random Glucose 112 H Calcium 8.9 Total Bilirubin 0.3 AST 11 L ALT 12 Alkaline Phosphatase 96 Total Protein 6.5 Albumin 3.2 L TSH - Imaging Impressions Chest X-Ray 11/09/17 11:41 CONCLUSION: 1. No acute cardiopulmonary disease. 2. Mild scoliosis of the thoracolumbar spine. Assessment and Plan - Plan Hypoxemia The patient presented with diffuse wheezing which has now improved. Chest x- ray was unremarkable. The patient endorses cough and mucus production. She has a heavy smoking history, ? COPD. -Duo nebs and oxygen as needed. -Sputum culture. -Incentive spirometry. -The patient received ceftriaxone and azithromycin in the emergency department. Will continue IV doxycycline so as not to interact with psychiatric medications. -continue with predisone. -Encourage ambulation. -smoking cessation instruction. -Nicotine patch. Tachycardia Likely s/t respiratory distress. Low risk for PE per Wells score. -EKG with sinus rhythm and TSH WNL -treat hypoxemia as above. -IVFs. Schizoaffective disorder/borderline personality disorder The patient was recently hospitalized in our psychiatric unit. She currently denies any psychiatric symptoms at this time. -Continue home medications. Discharge Planning: discharge within the next two-three days if continues to improve.
--- NOTE | 2017-11-10 13:07 | ECG ---
Date Performed: 11/10/2017 Time Performed: 04:53:20 PTAGE: 42 years EKG: Sinus rhythm POSSIBLE LEFT ATRIAL ENLARGEMENT MARKED LEFT AXIS DEVIATION LOW QRS VOLTAGE IN PRECORDIAL LEADS PABLO CRAIG CONSISTENT WITH PULMONARY DISEASE INCOMPLETE RIGHT BUNDLE BRANCH BLOCK ABNORMAL ECG PREVIOUS TRACING : 11/29/2016 09.01 DOCTOR: Mike Rich Interpretating Date/Time 11/10/2017 13:04:18
[2017-11-10] MEDS: Benztropine 2 MG Tablet PO SCH (20:32)
[2017-11-11] MEDS: Sertraline 100 MG Tablet PO SCH (08:03)
[2017-11-11] MEDS: Senna/Docusate Sodium 8.6/50 MG Tablet PO SCH ×2 (08:04→20:27)
[2017-11-11] MEDS: predniSONE 20 MG Tablet PO SCH (08:04)
--- NOTE | 2017-11-11 09:23 | P.PNIM ---
Subjective Interval history: Follow-up shortness of breath/hypoxemia/wheezes. Patient seen and examined sitting in the bed states that breathing better than on admission asking when she will can go. Patient stated wheezes is better. Patient denies any fever or chills, denies any chest pain or shortness of breath. Patient admitted smoke 1 pack/day for many years, denies any alcohol abuse, denies any use of street drugs. Patient denies any history of asthma or COPD. Patient denies any headache or dizziness, denies any abdominal pain, nausea, vomiting, diarrhea or constipation. Physical Exam Vital signs: Vital Signs 11/10/17 12:00 11/10/17 13:48 11/10/17 16:00 Temperature 97.5 F L 98.5 F Pulse Rate 109 H 109 H 120 H Respiratory Rate 20 18 22 Blood Pressure 125/98 H 140/96 H Pulse Oximetry 91 L 94 L 91 L 11/10/17 20:00 11/10/17 20:23 11/10/17 20:48 Temperature 98.5 F Pulse Rate 93 H 86 Respiratory Rate 18 16 Blood Pressure 138/85 Pulse Oximetry 96 98 11/11/17 00:00 11/11/17 04:00 11/11/17 07:25 Temperature 98.1 F 97.7 F Pulse Rate 81 82 97 H Respiratory Rate 18 18 16 Blood Pressure 154/97 H 133/83 Pulse Oximetry 100 99 92 L 11/11/17 08:00 Temperature 97.3 F L Pulse Rate 97 H Respiratory Rate 21 Blood Pressure 128/84 Pulse Oximetry 92 L Intake & Output 11/10/17 11/11/17 11/11/17 18:59 06:59 18:59 Intake Total 1680 / 1680 960 / 960 100 / 100 Balance 1680 / 1680 960 / 960 100 / 100 Weight 63 kg Intake: IV 1200 / 1200 100 / 100 1/2 Normal Saline Inj 1,000 ML 1000 / 1000 @ 100 mls/hr IV.CONT .Q10H HAWA Rx#:[id number] Doxy 100 Inj 100 MG In NS Inj 200 / 200 100 / 100 100 ML @ 100 mls/hr IV.SIG Q12H HAWA Rx#:[id number] Oral 480 / 480 960 / 960 Other: # Voids 3 2 Date of Last Bowel Movement 11/10/17 Narrative: GENERAL: Well-developed, thin built, alert and oriented x3 in no apparent distress SKIN: Warm and dry. HEAD: Atraumatic. Normocephalic. EYES: Pupils equal and round. No scleral icterus. No injection or drainage. ENT: No nasal bleeding or discharge. Mucous membranes pink and moist. NECK: Trachea midline. No JVD. CARDIOVASCULAR: Regular rate and rhythm. RESPIRATORY: No accessory muscle use. Expiratory wheezes on auscultation. Breath sounds equal bilaterally. GASTROINTESTINAL: Abdomen flat soft, non-tender, nondistended. Hepatic and splenic margins not palpable. MUSCULOSKELETAL: Extremities without clubbing, cyanosis, or edema. No obvious deformities. NEUROLOGICAL: Awake and alert. No obvious cranial nerve deficits. Motor grossly within normal limits. Five out of 5 muscle strength in the arms and legs. Normal speech. PSYCHIATRIC: Appropriate mood and affect; insight and judgment normal. Results - Labs CBC & Chem 7: 11/10/17 07:10 11/10/17 07:10 Laboratory Results - last 24 hr 11/10/17 07:10 Sodium 144 Potassium 3.9 Chloride 113 H Carbon Dioxide 20.2 L Anion Gap 11 BUN 7 Creatinine 0.62 Estimated GFR Greater than 89 Random Glucose 112 H Calcium 8.9 Total Bilirubin 0.3 AST 11 L ALT 12 Alkaline Phosphatase 96 Total Protein 6.5 Albumin 3.2 L Assessment and Plan - Assessment (1) Tachycardia Code(s): R00.0 - Tachycardia, unspecified Status: Acute (2) Acute exacerbation of chronic obstructive pulmonary disease (COPD) Code(s): J44.1 - Chronic obstructive pulmonary disease with (acute) exacerbation Status: Acute (3) Hypoxia Code(s): R09.02 - Hypoxemia Status: Acute (4) Schizoaffective disorder Code(s): F25.9 - Schizoaffective disorder, unspecified Status: Chronic - Plan The patient is a 42-year-old female with a past medical history of schizoaffective disorder and borderline personality disorder with multiple psychiatric hospitalization, who is presenting to the hospital with shortness of breath. The patient says that she was recently in the psychiatric unit and was discharged last week. Hypoxemia/probable asthma exacerbation/Probable COPD with exacerbation/ Tobacco Dependence Expiratory wheezes improving / Heavy smoking history, ? COPD. Chest x-ray was unremarkable. -Duo nebs and oxygen as needed. -Sputum culture. -Incentive spirometry. -s/p IV antibiotic treatment ceftriaxone and azithromycin in the emergency department. - continue IV doxycycline so as not to interact with psychiatric medications. -add IV solu Medrol, will restart PO Prednisone in 2 days -Encourage ambulation. -smoking cessation instruction. -Nicotine patch. Tachycardia Likely s/t respiratory distress. Low risk for PE per Wells score. -EKG with sinus rhythm and TSH WNL -treat hypoxemia as above. -IVFs. Schizoaffective disorder/borderline personality disorder The patient was recently hospitalized in our psychiatric unit. She currently denies any psychiatric symptoms at this time. -Continue home medications. DVT Proph: patient ambulatory Code Status: full code Discussed Condition With: patient and nurse Discharge Planning: Plan for discharge in 2-3 days if Respiratory symptoms improved
[2017-11-11] MEDS: MethylPREDNISolone Sod Succinate Inj 40 MG/ML Vial IV.PUSH SCH ×3 (10:55→21:58)
[2017-11-11] MEDS: Sodium Chloride 0.45 % Inj 1,000 ML IV.CONT SCH (17:14)
[2017-11-11 19:43] LABS: Amphetamine Screen,Urine Neg (Neg); Barbiturate Screen,Urine Neg (Neg); Cannabinoid Screen,Urine Neg (Neg); Cocaine Screen,Urine Neg (Neg); Opiate Screen,Urine Neg (Neg)
[2017-11-11] MEDS: Benztropine 2 MG Tablet PO SCH (20:27)
[2017-11-12] MEDS: MethylPREDNISolone Sod Succinate Inj 40 MG/ML Vial IV.PUSH SCH ×2 (05:28→09:01)
[2017-11-12] MEDS: Sodium Chloride 0.45 % Inj 1,000 ML IV.CONT SCH (05:43)
[2017-11-12 06:01] LABS: Baso % (Auto) 0.1 % (0.0-2.0); Hematocrit 37.7 % (35.0-46.0); Hemoglobin 12.6 gm/dL (11.6-15.3); Lymph # (Auto) 0.7 th/mm3 (1.0-4.8); Lymph % (Auto) 5.8 % (9.0-44.0); Mean Corpuscular HGB Conc 33.5 % (32.0-36.0); Mean Corpuscular Hemoglobin 30.6 pg (27.0-34.0); Mean Corpuscular Volume 91.4 fL (80.0-100.0); Mean Platelet Volume 8.4 fL (7.0-11.0); Mono # (Auto) 0.3 th/mm3 (0.0-0.9); Mono % (Auto) 2.5 % (0.0-8.0); Neut # (Auto) 11.6 th/mm3 (1.8-7.7); Neut % (Auto) 91.6 % (16.0-70.0); Platelet Count 219 th/mm3 (150-450); Red Blood Count 4.13 mil/mm3 (4.00-5.30); Red Cell Distribution Width 14.3 % (11.6-17.2); White Blood Count 12.7 th/mm3 (4.0-11.0)
[2017-11-12 06:26] LABS: Calcium 9.2 mg/dL (8.5-10.1); Carbon Dioxide 24.9 meq/L (21.0-32.0); Potassium 4.1 meq/L (3.5-5.1)
[2017-11-12] MEDS: Senna/Docusate Sodium 8.6/50 MG Tablet PO SCH (08:57)
[2017-11-12] MEDS: Sertraline 100 MG Tablet PO SCH (08:57)
[2017-11-12] MEDS ORDERED: guaiFENesin 600 MG ER Tablet PO SCH (11:00)
--- NOTE | 2017-11-12 11:10 | P.PNIM ---
Subjective Interval history: Chief Complaint: Shortness of breath History of Present Illness: The patient is a 42-year-old female with a past medical history of schizoaffective disorder and borderline personality disorder who is presenting to the hospital with shortness of breath. The patient says that she was recently in the psychiatric unit and was discharged last week. She said that a few days prior to discharge she developed symptoms including shortness of breath , mucus production, lightheadedness and wheezing. She says her symptoms have been getting worse. She denies any fevers. She says she has a lot of sick contacts that she lives in an SNF. She says that in the emergency department she received steroids and breathing treatments and is feeling a lot better at this time. She currently requests a nicotine patch. She endorses a heavy smoking history. She heard that she might have COPD. 10-6 f/u; COPD exacerbation in no acute distress. but still with some wheezing and productive cough of yellowish sputum. no fever. she says that she's feeling better and wheezing seems to be improving. 10-7 Follow-up shortness of breath/hypoxemia/wheezes. Patient seen and examined sitting in the bed states that breathing better than on admission asking when she will can go. Patient stated wheezes is better. Patient denies any fever or chills, denies any chest pain or shortness of breath. Patient admitted smoke 1 pack/day for many years, denies any alcohol abuse, denies any use of street drugs. Patient denies any history of asthma or COPD. Patient denies any headache or dizziness, denies any abdominal pain, nausea, vomiting, diarrhea or constipation. 10-8 BREATHING A LITTLE BETTER LESS WHEEZING WANTS TO GO HOME TODAY DW RN AND PT CONTINUE ON STEROIDS AND MUCINEX AND ANTIBIOTICS AND INCENTIVE SPIROMETRY WEAN OFF OXYGEN AND DC TO HOME TODAY Physical Exam Vital signs: Vital Signs 11/11/17 11:10 11/11/17 12:00 11/11/17 16:00 Temperature 98.3 F 98.5 F Pulse Rate 100 H 107 H 113 H Respiratory Rate 16 20 20 Blood Pressure 145/91 H 122/67 Pulse Oximetry 98 93 L 11/11/17 16:38 11/11/17 17:05 11/11/17 19:35 Temperature Pulse Rate 121 H 117 H 108 H Respiratory Rate 16 20 Blood Pressure Pulse Oximetry 95 11/11/17 20:00 11/12/17 00:00 11/12/17 04:00 Temperature 98.1 F 98.0 F 98.5 F Pulse Rate 115 H 84 78 Respiratory Rate 18 18 18 Blood Pressure 126/73 121/66 116/63 Pulse Oximetry 93 L 96 99 11/12/17 08:00 11/12/17 08:37 Temperature 97.3 F L Pulse Rate 100 H 99 H Respiratory Rate 20 18 Blood Pressure 142/91 H Pulse Oximetry 92 L 93 L Intake & Output 11/11/17 11/12/17 11/12/17 18:59 06:59 18:59 Intake Total 920 / 920 1580 / 1580 Balance 920 / 920 1580 / 1580 Weight 64 kg Intake: IV 200 / 200 1100 / 1100 1/2 Normal Saline Inj 1,000 ML 1000 / 1000 @ 84 mls/hr IV.CONT .[id number] [facility] Rx#:[id number] Doxy 100 Inj 100 MG In NS Inj 200 / 200 100 / 100 100 ML @ 100 mls/hr IV.SIG Q12H [facility] Rx#:[id number] Oral 720 / 720 480 / 480 Other: # Voids 4 2 Date of Last Bowel Movement 11/10/17 11/11/17 Narrative: GENERAL: Well-developed, thin built, alert and oriented x3 in no apparent distress SKIN: Warm and dry. HEAD: Atraumatic. Normocephalic. EYES: Pupils equal and round. No scleral icterus. No injection or drainage. ENT: No nasal bleeding or discharge. Mucous membranes pink and moist. NECK: Trachea midline. No JVD. CARDIOVASCULAR: Regular rate and rhythm. RESPIRATORY: No accessory muscle use. LESS Expiratory wheezes on auscultation. Breath sounds equal bilaterally. GASTROINTESTINAL: Abdomen flat soft, non-tender, nondistended. Hepatic and splenic margins not palpable. MUSCULOSKELETAL: Extremities without clubbing, cyanosis, or edema. No obvious deformities. NEUROLOGICAL: Awake and alert. No obvious cranial nerve deficits. Motor grossly within normal limits. Five out of 5 muscle strength in the arms and legs. Normal speech. PSYCHIATRIC: Appropriate mood and affect; insight and judgment normal. Results - Labs CBC & Chem 7: 11/12/17 03:24 11/12/17 03:24 Laboratory Results - last 24 hr 11/11/17 11/11/17 11/12/17 18:38 18:40 03:24 WBC 12.7 H RBC 4.13 Hgb 12.6 Hct 37.7 MCV 91.4 MCH 30.6 MCHC 33.5 RDW 14.3 Plt Count 219 MPV 8.4 Neut % (Auto) 91.6 H Lymph % (Auto) 5.8 L [place] % (Auto) 2.5 Eos % (Auto) 0.0 Baso % (Auto) 0.1 Neut # (Auto) 11.6 H Lymph # (Auto) 0.7 L [place] # (Auto) 0.3 Eos # (Auto) 0.0 Baso # (Auto) 0.0 WBC Differential . Differential Comment Auto diff final D-Dimer Quant (PE/DVT) 0.20 Sodium Potassium Chloride Carbon Dioxide Anion Gap BUN Creatinine Estimated GFR Random Glucose Calcium Urine Opiates Screen Neg Ur Barbiturates Screen Neg Ur Amphetamines Screen Neg U Benzodiazepines Scrn Neg Urine Cocaine Screen Neg U Cannabinoids Screen Neg 11/12/17 03:24 WBC RBC Hgb Hct MCV MCH MCHC RDW Plt Count MPV Neut % (Auto) Lymph % (Auto) [place] % (Auto) Eos % (Auto) Baso % (Auto) Neut # (Auto) Lymph # (Auto) [place] # (Auto) Eos # (Auto) Baso # (Auto) WBC Differential Differential Comment D-Dimer Quant (PE/DVT) Sodium 142 Potassium 4.1 Chloride 107 Carbon Dioxide 24.9 Anion Gap 10 BUN 16 Creatinine 0.72 Estimated GFR 88 L Random Glucose 100 Calcium 9.2 Urine Opiates Screen Ur Barbiturates Screen Ur Amphetamines Screen U Benzodiazepines Scrn Urine Cocaine Screen U Cannabinoids Screen - Imaging ITS Impressions Chest X-Ray 11/09/17 11:41 CONCLUSION: 1. No acute cardiopulmonary disease. 2. Mild scoliosis of the thoracolumbar spine. - Procedures NONE Assessment and Plan - Assessment (1) Tachycardia Code(s): R00.0 - Tachycardia, unspecified Status: Acute (2) Acute exacerbation of chronic obstructive pulmonary disease (COPD) Code(s): J44.1 - Chronic obstructive pulmonary disease with (acute) exacerbation Status: Acute (3) Hypoxia Code(s): R09.02 - Hypoxemia Status: Acute (4) Schizoaffective disorder Code(s): F25.9 - Schizoaffective disorder, unspecified Status: Chronic - Plan The patient is a 42-year-old female with a past medical history of schizoaffective disorder and borderline personality disorder with multiple psychiatric hospitalization, who is presenting to the hospital with shortness of breath. The patient says that she was recently in the psychiatric unit and was discharged last week. Hypoxemia/probable asthma exacerbation/Probable COPD with exacerbation/ Tobacco Dependence Expiratory wheezes improving / Heavy smoking history, ? COPD. Chest x-ray was unremarkable. -Duo nebs and oxygen as needed.- WEAN OFF OXYGEN -Sputum culture. -Incentive spirometry. -s/p IV antibiotic treatment ceftriaxone and azithromycin in the emergency department. - continue IV doxycycline so as not to interact with psychiatric medications. SWITCH TO PO MEDS -will restart PO STEROIDS MUCINEX IS -Encourage ambulation. -smoking cessation instruction. -Nicotine patch. Tachycardia Likely s/t respiratory distress. Low risk for PE per Wells score. -EKG with sinus rhythm and TSH WNL -treat hypoxemia as above. -IVFs. Schizoaffective disorder/borderline personality disorder The patient was recently hospitalized in our psychiatric unit. She currently denies any psychiatric symptoms at this time. -Continue home medications. DVT Proph: patient ambulatory DC TO HOME TODAY WANTS TO DC TO HOME SWITCH TO PO MEDS Code Status: FULL CODE Discussed Condition With: RN AND PT AND CM Discharge Planning: DC TO HOME TODAY
--- NOTE | 2017-11-12 11:23 | P.DS ---
Date of admission: 11/09/17 17:13 Primary care physician: UNKNOWN Attending physician on discharge: Vitaly Izquierdo Anticipated date of discharge: 11/12/17 Brief History from admission: The patient is a 42-year-old female with a past medical history of schizoaffective disorder and borderline personality disorder who is presenting to the hospital with shortness of breath. The patient says that she was recently in the psychiatric unit and was discharged last week. She said that a few days prior to discharge she developed symptoms including shortness of breath , mucus production, lightheadedness and wheezing. She says her symptoms have been getting worse. She denies any fevers. She says she has a lot of sick contacts that she lives in an [facility]. She says that in the emergency department she received steroids and breathing treatments and is feeling a lot better at this time. She currently requests a nicotine patch. She endorses a heavy smoking history. She heard that she might have COPD. Patient update on day of discharge: Chief Complaint: Shortness of breath History of Present Illness: The patient is a 42-year-old female with a past medical history of schizoaffective disorder and borderline personality disorder who is presenting to the hospital with shortness of breath. The patient says that she was recently in the psychiatric unit and was discharged last week. She said that a few days prior to discharge she developed symptoms including shortness of breath , mucus production, lightheadedness and wheezing. She says her symptoms have been getting worse. She denies any fevers. She says she has a lot of sick contacts that she lives in an [facility]. She says that in the emergency department she received steroids and breathing treatments and is feeling a lot better at this time. She currently requests a nicotine patch. She endorses a heavy smoking history. She heard that she might have COPD. 10-6 f/u; COPD exacerbation in no acute distress. but still with some wheezing and productive cough of yellowish sputum. no fever. she says that she's feeling better and wheezing seems to be improving. 10-7 Follow-up shortness of breath/hypoxemia/wheezes. Patient seen and examined sitting in the bed states that breathing better than on admission asking when she will can go. Patient stated wheezes is better. Patient denies any fever or chills, denies any chest pain or shortness of breath. Patient admitted smoke 1 pack/day for many years, denies any alcohol abuse, denies any use of street drugs. Patient denies any history of asthma or COPD. Patient denies any headache or dizziness, denies any abdominal pain, nausea, vomiting, diarrhea or constipation. 10-8 BREATHING A LITTLE BETTER LESS WHEEZING WANTS TO GO HOME TODAY DW RN AND PT CONTINUE ON STEROIDS AND MUCINEX AND ANTIBIOTICS AND INCENTIVE SPIROMETRY WEAN OFF OXYGEN AND DC TO HOME TODAY DS: Diagnosis - Discharge Diagnosis (1) Tachycardia Status: Acute (2) Acute exacerbation of chronic obstructive pulmonary disease (COPD) Status: Acute (3) Hypoxia Status: Acute (4) Schizoaffective disorder Status: Chronic DS: Medications - Discharge Medications Prescriptions: benztropine 2 mg PO HS #30 tab buspirone 10 mg PO BID #60 tab clozapine 550 mg PO HS #30 tab clozapine 200 mg PO QAM #60 tab guaifenesin [Mucinex] 600 mg PO BID #60 tab ipratropium-albuterol 1 amp NEB Q6HR WHILE AWAKE NEB #180 amp nicotine 1 patch TRANSDERMAL DAILY #30 ea sertraline 200 mg PO DAILY #60 tab DS: Summary Hospital Course: Chief Complaint: Shortness of breath History of Present Illness: The patient is a 42-year-old female with a past medical history of schizoaffective disorder and borderline personality disorder who is presenting to the hospital with shortness of breath. The patient says that she was recently in the psychiatric unit and was discharged last week. She said that a few days prior to discharge she developed symptoms including shortness of breath , mucus production, lightheadedness and wheezing. She says her symptoms have been getting worse. She denies any fevers. She says she has a lot of sick contacts that she lives in an [facility]. She says that in the emergency department she received steroids and breathing treatments and is feeling a lot better at this time. She currently requests a nicotine patch. She endorses a heavy smoking history. She heard that she might have COPD. 10-6 f/u; COPD exacerbation in no acute distress. but still with some wheezing and productive cough of yellowish sputum. no fever. she says that she's feeling better and wheezing seems to be improving. 10-7 Follow-up shortness of breath/hypoxemia/wheezes. Patient seen and examined sitting in the bed states that breathing better than on admission asking when she will can go. Patient stated wheezes is better. Patient denies any fever or chills, denies any chest pain or shortness of breath. Patient admitted smoke 1 pack/day for many years, denies any alcohol abuse, denies any use of street drugs. Patient denies any history of asthma or COPD. Patient denies any headache or dizziness, denies any abdominal pain, nausea, vomiting, diarrhea or constipation. 10-8 BREATHING A LITTLE BETTER LESS WHEEZING WANTS TO GO HOME TODAY DW RN AND PT CONTINUE ON STEROIDS AND MUCINEX AND ANTIBIOTICS AND INCENTIVE SPIROMETRY WEAN OFF OXYGEN AND DC TO HOME TODAY - Time Spent with Patient Total time spent providing and/or coordinating discharge services: Greater than 30 minutes - Quality: VTE Deep Vein Thrombosis/Pulmonary Embolism Present on Admission: No Exam Vital signs: Vital Signs 11/11/17 12:00 11/11/17 16:00 11/11/17 16:38 Temperature 98.3 F 98.5 F Pulse Rate 107 H 113 H 121 H Respiratory Rate 20 20 16 Blood Pressure 145/91 H 122/67 Pulse Oximetry 98 93 L 11/11/17 17:05 11/11/17 19:35 11/11/17 20:00 Temperature 98.1 F Pulse Rate 117 H 108 H 115 H Respiratory Rate 20 18 Blood Pressure 126/73 Pulse Oximetry 95 93 L 11/12/17 00:00 11/12/17 04:00 11/12/17 08:00 Temperature 98.0 F 98.5 F 97.3 F L Pulse Rate 84 78 100 H Respiratory Rate 18 18 20 Blood Pressure 121/66 116/63 142/91 H Pulse Oximetry 96 99 92 L 11/12/17 08:37 Temperature Pulse Rate 99 H Respiratory Rate 18 Blood Pressure Pulse Oximetry 93 L Intake & Output 11/11/17 11/12/17 11/12/17 18:59 06:59 18:59 Intake Total 920 / 920 1580 / 1580 Balance 920 / 920 1580 / 1580 Weight 64 kg Intake: IV 200 / 200 1100 / 1100 1/2 Normal Saline Inj 1,000 ML 1000 / 1000 @ 84 mls/hr IV.CONT .[id number] [facility] Rx#:[id number] Doxy 100 Inj 100 MG In NS Inj 200 / 200 100 / 100 100 ML @ 100 mls/hr IV.SIG Q12H [facility] Rx#:[id number] Oral 720 / 720 480 / 480 Other: # Voids 4 2 Date of Last Bowel Movement 11/10/17 11/11/17 Narrative: GENERAL: Well-developed, thin built, alert and oriented x3 in no apparent distress SKIN: Warm and dry. HEAD: Atraumatic. Normocephalic. EYES: Pupils equal and round. No scleral icterus. No injection or drainage. ENT: No nasal bleeding or discharge. Mucous membranes pink and moist. NECK: Trachea midline. No JVD. CARDIOVASCULAR: Regular rate and rhythm. RESPIRATORY: No accessory muscle use. LESS Expiratory wheezes on auscultation. Breath sounds equal bilaterally. GASTROINTESTINAL: Abdomen flat soft, non-tender, nondistended. Hepatic and splenic margins not palpable. MUSCULOSKELETAL: Extremities without clubbing, cyanosis, or edema. No obvious deformities. NEUROLOGICAL: Awake and alert. No obvious cranial nerve deficits. Motor grossly within normal limits. Five out of 5 muscle strength in the arms and legs. Normal speech. PSYCHIATRIC: Appropriate mood and affect; insight and judgment normal. Results Procedures completed during hospitalization: NONE Labs on day of discharge: Labs from last 24 hours 11/12/17 11/12/17 11/11/17 03:24 03:24 18:40 WBC 12.7 H RBC 4.13 Hgb 12.6 Hct 37.7 MCV 91.4 MCH 30.6 MCHC 33.5 RDW 14.3 Plt Count 219 MPV 8.4 Neut % (Auto) 91.6 H Lymph % (Auto) 5.8 L [place] % (Auto) 2.5 Eos % (Auto) 0.0 Baso % (Auto) 0.1 Neut # (Auto) 11.6 H Lymph # (Auto) 0.7 L [place] # (Auto) 0.3 Eos # (Auto) 0.0 Baso # (Auto) 0.0 WBC Differential . Differential Comment Auto diff final D-Dimer Quant (PE/DVT) Sodium 142 Potassium 4.1 Chloride 107 Carbon Dioxide 24.9 Anion Gap 10 BUN 16 Creatinine 0.72 Estimated GFR 88 L Random Glucose 100 Calcium 9.2 Urine Opiates Screen Neg Ur Barbiturates Screen Neg Ur Amphetamines Screen Neg U Benzodiazepines Scrn Neg Urine Cocaine Screen Neg U Cannabinoids Screen Neg 11/11/17 18:38 WBC RBC Hgb Hct MCV MCH MCHC RDW Plt Count MPV Neut % (Auto) Lymph % (Auto) [place] % (Auto) Eos % (Auto) Baso % (Auto) Neut # (Auto) Lymph # (Auto) [place] # (Auto) Eos # (Auto) Baso # (Auto) WBC Differential Differential Comment D-Dimer Quant (PE/DVT) 0.20 Sodium Potassium Chloride Carbon Dioxide Anion Gap BUN Creatinine Estimated GFR Random Glucose Calcium Urine Opiates Screen Ur Barbiturates Screen Ur Amphetamines Screen U Benzodiazepines Scrn Urine Cocaine Screen U Cannabinoids Screen - Impressions ITS Impressions Chest X-Ray 11/09/17 11:41 CONCLUSION: 1. No acute cardiopulmonary disease. 2. Mild scoliosis of the thoracolumbar spine. Discharge Plan - Discharge Disposition Patient Disposition: Discharge Home - Discharge Condition Condition: Good - Discharge Order Discharge Orders: Discharge Order (Routine); Ordered 11/12/17 Ordered By: Vitaly Izquierdo - Discharge Details Anticipated Discharge Date: 11/12/17 Discharge Comment: DC TO HOME TODAY - Physicians Team Primary Care Provider: UNKNOWN, Attending Provider: Vitaly Izquierdo
[2017-11-12 12:19] VITALS: BP 140/86; PULSE 122; RESP 20; TEMP 97.9; O2SAT 97
== END 2017-11-12 13:14 | disposition home or self-care (01) ==
LOC: NEDA 10:54 → NEPD 10:54 → NEDA 17:08 → NEPGCP 17:21 → N04 11-10 07:51
PROVIDERS: ADMIT Hospitalist; ATTEND Hospitalist